=== PATIENT | male | born 1945 | race Caucasian/White ===

== ENCOUNTER → 2017-08-01 | Outpatient (CLI) | payer MEDICARE ==
[2017-08-01 15:06] LABS: Basophils % (A) 0 %; CH 29.2; CHCM 31.9; Eosinophils # (A) 0.4 k/uL (0-0.7); Eosinophils % (A) 5 %; HCT 41.3 % (39.0-53.0); HDW 2.42; HGB 13.4 gm/dL (13.0-17.5); Luc # (Auto) 0.14; Luc % (Auto) 2; Lymphocytes % (A) 25 %; MCH 29.8 pg (25.0-35.0); MCHC 32.4 g/dL (31.0-37.0); MCV 92.1 fL (80.0-100.0); Mean Platelet Volume 6.4; Monocytes # (A) 0.4 k/uL (0-1.0); Monocytes % (A) 6 %; Neutrophils # (A) 4.9 k/uL (1.3-7.7); Neutrophils % (A) 63 %; RBC 4.48 m/uL (4.30-5.90); RDW 13.4 % (11.5-15.5); WBC 7.8 k/uL (3.8-10.6); WBC (Perox) 8.51
[2017-08-01 15:08] LABS: Appearance,Urine Clear (Clear); Bilirubin,Urine Negative (Negative); Glucose,Urine (UA) Negative (Negative); Ketones,Urine Negative (Negative); Leukocyte Esterase,Urine Negative (Negative); Nitrite,Urine Negative (Negative); Protein,Urine Trace (Negative); Specific Gravity,Urine 1.019 (1.001-1.035); UA Billing (MACRO vs. MICRO) CHEM
[2017-08-01 15:58] LABS: ALT 42 U/L (21-72); AST 55 U/L (17-59); Alkaline Phosphatase 118 U/L (38-126); Amylase <30 U/L (30-110); Anion Gap 9 mmol/L; Blood Urea Nitrogen 14 mg/dL (9-20); Calcium 9.5 mg/dL (8.4-10.2); Carbon Dioxide 26 mmol/L (22-30); Chloride 103 mmol/L (98-107); Cholesterol 174 mg/dL (<200); Glucose 112 mg/dL (74-99); HDL Cholesterol 37 mg/dL (40-60); Non-African American GFR(MDRD) >60 (>60 ml/min/1.73 sqM); Potassium 4.5 mmol/L (3.5-5.1); Sodium 138 mmol/L (137-145); Total Bilirubin 0.7 mg/dL (0.2-1.3); Total Protein 7.1 g/dL (6.3-8.2)
[2017-08-01 23:12] LABS: Erythrocyte Sedimentation Rate 42 mm/hr (0-15)
== END | disposition home or self-care (01) ==
LOC: LABWHC1 14:21
PROVIDERS: ATTEND Internal Medicine
DX: E78.5 Hyperlipidemia, unspecified (principal); R10.9 Unspecified abdominal pain
CPT/HCPCS: 36415; 80053; 80061; 81003; 82150; 83690; 84439; 84443; 85025; 85652

== ENCOUNTER → 2017-08-29 | Outpatient (CLI) | payer MEDICARE ==
[2017-08-29 12:06] LABS: CHCM 32.1; HCT 40.5 % (39.0-53.0); MCH 29.1 pg (25.0-35.0); MCHC 32.1 g/dL (31.0-37.0); MCV 90.9 fL (80.0-100.0); Mean Platelet Volume 6.6; RBC 4.46 m/uL (4.30-5.90); RDW 13.3 % (11.5-15.5); WBC 7.9 k/uL (3.8-10.6)
[2017-08-29 12:19] LABS: ALT 29 U/L (21-72); AST 44 U/L (17-59); Alkaline Phosphatase 138 U/L (38-126); Anion Gap 13 mmol/L; Blood Urea Nitrogen 11 mg/dL (9-20); Calcium 9.9 mg/dL (8.4-10.2); Carbon Dioxide 25 mmol/L (22-30); Chloride 103 mmol/L (98-107); Glucose 140 mg/dL (74-99); Non-African American GFR(MDRD) >60 (>60 ml/min/1.73 sqM); Potassium 4.2 mmol/L (3.5-5.1); Sodium 141 mmol/L (137-145); Total Bilirubin 0.6 mg/dL (0.2-1.3); Total Protein 7.3 g/dL (6.3-8.2)
[2017-08-29 12:39] LABS: INR 1.1 (<1.2); Partial Thromboplastin Time 26.2 sec (22.0-30.0); Prothrombin Time 11.2 sec (9.0-12.0)
== END | disposition home or self-care (01) ==
LOC: LABWHC1 10:55
PROVIDERS: ATTEND Surgery
DX: C18.9 Malignant neoplasm of colon, unspecified (principal)
CPT/HCPCS: 36415; 80053; 82378; 85027; 85610; 85730

== ENCOUNTER → 2017-12-11 | Outpatient (CLI) | payer MEDICARE ==
[2017-12-11 11:00] LABS: Blood Urea Nitrogen 14 mg/dL (9-20)
--- NOTE | 2017-12-11 13:05 | CT ---
EXAMINATION TYPE: CT ChestAbdPelvis w con DATE OF EXAM: 12/11/2017 COMPARISON: CT abdomen and pelvis August 28, 2017 HISTORY: Colon CA follow up study currently on chemotherapy. CT DLP: 1580.4 mGycm. Automated Exposure Control for Dose Reduction was Utilized. CONTRAST: CT scan of the thorax, abdomen and pelvis is performed with oral and with IV Contrast, patient inject ed with 100 mL of Omnipaque 300. FINDINGS: LUNGS: There is medial right middle lobe linear scarring near axial image 45 redemonstrated. The righ t lower lobe medial nodule measures 12 x 7 mm axial image 53 versus 21 by 19 mm prior study image 15. The previously visualized 1.3 cm posterior left basilar nodule axial image 18 now shows residual 5 m m groundglass nodule axial image 56. There is mild underlying emphysematous change and mild scattered areas of linear scarring. No new nodules or masses are present. No pleural effusion or pneumothorax is seen. MEDIASTINUM: There are no new greater than 1 cm hilar or mediastinal lymph nodes. Suspicious right pericardial lymph node measures 1.8 x 1.4 cm current study axial image 44 diminished in size from nelson or exam. No cardiomegaly or pericardial effusion is seen. Moderate to severe 3 vessel coronary arter y calcification is noted. OTHER: There is new right internal jugular Mediport catheter with tip in SVC. LIVER/GB: There is redemonstration of ill-defined heterogeneous hypodense liver masses felt improved or diminished in size, some are difficult to accurately measure. For reference medial segment left he patic lobe lesion anteriorly measures 3.0 cm long axis axial image 68 persistent 4.4 cm prior study a xial image 30. For reference lateral left lobe superior segment lesion measures 4.2 cm long axis axia l image 59 versus 6.4 cm prior study image 19. Central malik hepatic mass or lymph node is improved m easuring 3.6 x 3.1 cm axial image 70 versus 5.7 x 5.2 cm prior study. Large rim calcified dependent g allstone is redemonstrated. PANCREAS: No significant abnormality is seen. SPLEEN: No significant abnormality is seen. ADRENALS: No significant abnormality is seen. KIDNEYS: Retroaortic left renal vein is redemonstrated which is normal anatomic variant. BOWEL: There is new metallic stent in the proximal to mid sigmoid colon at site of moderate to severe diverticulosis with persistent mild fat stranding. Irregular posterior mass near axial image 107 is difficult to accurately measure from adjacent fluid. There are additional diverticula in the distal l eft and proximal sigmoid colon. The oral contrast extends to mid transverse colon level. No suspiciou s bowel dilatation is seen. GENITAL ORGANS: No gross abnormality seen. LYMPH NODES: No new greater than 1cm abdominal or pelvic lymph nodes are appreciated. Interval improv ement in gastrohepatic lymph node now measuring 6 x 5 mm axial image 62 versus 1.6 cm long axis prior study. OSSEOUS STRUCTURES: Fairly moderate to severe multilevel spurring in the mid to lower thoracic spine is present. There is facet arthropathy lower lumbar levels. OTHER: Mild to moderate calcified atherosclerotic change of aorta extending into branch vessels is se en. IMPRESSION: 1. New placement of metallic stent at site of neoplasm proximal to mid sigmoid colon. Stent felt zavala nt without proximal dilatation or obstruction. Persistent adjacent diverticulosis and suspected mild acute diverticulitis at this level. 2. Positive treatment response with diminished in size of pulmonary metastatic nodules and hepatic me tastatic lesions as well as lower thoracic and upper abdominal adenopathy as detailed above.
== END ==
LOC: RADPROMAIN 09:53
PROVIDERS: ATTEND Internal Medicine Hematology & Oncology
DX: Z03.89 Encounter for observation for other suspected diseases and conditions ruled out (principal); C18.7 Malignant neoplasm of sigmoid colon; R91.8 Other nonspecific abnormal finding of lung field; K76.9 Liver disease, unspecified; R59.0 Localized enlarged lymph nodes; Z96.89 Presence of other specified functional implants
CPT/HCPCS: 82565; 84520; 71260; 74177; Q9967; J1642

== ENCOUNTER → 2018-03-10 | Outpatient (CLI) | payer MEDICARE ==
[2018-03-10 10:34] LABS: Blood Urea Nitrogen 9 mg/dL (9-20)
--- NOTE | 2018-03-10 12:30 | CT ---
EXAMINATION TYPE: CT ChestAbdPelvis w con DATE OF EXAM: 03/10/2018 COMPARISON: CT chest abdomen and pelvis December 11, 2017. Older CT abdomen pelvis August 28, 2017 HISTORY: Colon CA observed for metastases. Completed chemotherapy in February. CT DLP: 2125.9 mGycm. Automated Exposure Control for Dose Reduction was Utilized. CONTRAST: CT scan of the thorax, abdomen and pelvis is performed with oral and with IV Contrast, patient inject ed with 100 mL of Isovue 300. FINDINGS: LUNGS: Mild underlying emphysematous change is present bilaterally. There is some mild bibasilar line ar scarring and/or atelectasis. Medial right basilar nodule measures 9 x 6 mm prior study image 51 di minished in size from last 2 exams. There is 3 mm groundglass subpleural focus axial image 53 at area of 1.3 cm nodule original study. There is no new suspicious parenchymal nodule or mass. Mild central peribronchial wall thickening is redemonstrated bilaterally. No pleural effusion or pneumothorax is noted. MEDIASTINUM: There are no new greater than 1 cm hilar or mediastinal lymph nodes. Abnormal right nemo cardial lymph node measures 10 x 7 mm prior study image 41 diminished in size from last 2 exams. No cardiomegaly or pericardial effusion is seen. Coronary artery calcification is redemonstrated which is noted marker for coronary artery disease. OTHER: There is stable right internal jugular Mediport catheter. LIVER/GB: Large dependent rim calcified gallstone in the gallbladder is redemonstrated. There is lobu lated contour to the liver. Vague heterogeneous hypodense lesions continue to decrease or diminished in size and are difficult to accurately measure on current study due to increased ill-definition. For reference lateral right hepatic lobe lesion is poor defined smaller in size measuring 1.7 cm long ax is axial image 71 versus 2.2 cm prior study axial image 72. Medial segment left hepatic lobe lesion anteriorly measures 2.2 cm long axis image 64 versus 3.1 cm prior study image 68. No new suspicious l esions are seen. PANCREAS: No significant abnormality is seen. SPLEEN: No significant abnormality is seen. ADRENALS: No significant abnormality is seen. KIDNEYS: There is retroaortic left renal vein which is normal variant incidentally noted. BOWEL: There is persistent metallic stent graft in the sigmoid colon. There is prominent sigmoid colo monty diverticulosis. Some foci of soft tissue and air outside the stent could reflect contained infect ion or pneumoperitoneum on background of residual neoplasm, this is not significantly unchanged from prior study. On current study oral contrast reaches the mid transverse colon. There is no new suspici ous small or large bowel dilatation. GENITAL ORGANS: No gross abnormality seen. LYMPH NODES: No new greater than 1cm abdominal or pelvic lymph nodes are appreciated. Slightly promin ent left para-aortic lymph node axial image 65 is unchanged from last 2 studies. Abnormal heterogeneo us perihepatic lymph node anterior to IVC measures 2.4 x 2.2 cm current study image 67 diminished in size from last 2 exams. OSSEOUS STRUCTURES: There is moderate multilevel spurring in the thoracic spine. OTHER: There is mild to moderate calcified plaque of the abdominal aorta extending into pelvic branch vessels IMPRESSION: Continued interval improvement in metastatic disease as detailed above. No new suspiciou s masses are identified.
== END | disposition home or self-care (01) ==
LOC: RADCTMAIN 09:29
PROVIDERS: ATTEND Internal Medicine Hematology & Oncology
DX: C18.7 Malignant neoplasm of sigmoid colon (principal)
CPT/HCPCS: 82565; 84520; 71260; 74177; J1642; Q9967

== ENCOUNTER → 2018-05-19 | Outpatient (CLI) | payer MEDICARE ==
--- NOTE | 2018-05-19 15:50 | CT ---
EXAMINATION TYPE: CT ChestAbdPelvis w con DATE OF EXAM: 05/19/2018 COMPARISON: 03/10/2018 and 12/11/2017 HISTORY: 73-year-old male Follow up colon cancer. TECHNIQUE: Contiguous axial scanning of the chest, abdomen, and pelvis performed with IV Contrast, pa tient injected with 100 mL of Isovue M300. Delayed images through the kidneys were obtained. Coronal/ sagittal reconstructions performed. CT DLP: 1710.9 mGycm Automated exposure control for dose reduction was used. FINDINGS: Chest: Heart normal size without pericardial effusion. Coronary vessel calcifications are present in remarka ble for coronary artery disease. 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 Conventional arch vessel branching anatomy. Right anterior chest wall injection port with catheter tip at the mid SVC level. No thoracic lymphadenopathy. Mild centrilobular emphysema. -7 mm posteromedial right lower lobe pulmonary nodule slightly smaller as compared to 9 mm, previousl y. -4 mm left basilar pulmonary nodule axial image 49 and a couple tiny adjacent 3 mm pulmonary nodules, axial images 45 and 46 are unchanged from 03/10/2018. -Minimal 4 mm subpleural pulmonary nodularity peripheral right upper lobe axial image 16 is unchanged from recent prior. No consolidation or pleural effusion. Abdomen: Multiple lesions redemonstrated within the liver are partially calcified. These appear smaller as com pared to 12/11/2017 and relatively stable as compared to 03/10/2018 measuring up to 2.5 cm. An abnormal portacaval lymph node measures 2.0 cm versus 2.3 cm on 03/10/2018. Significantly decreased in size as compared to 12/11/2017. No other mesenteric or retroperitoneal lymphadenopathy. Retrocaval left renal vein incidentally noted. 2.2 cm gallstone. No abnormal gallbladder distention. Adrenal glands, kidneys, spleen, and pancreas appear within normal limits. Irregular soft tissue thickening along the mid sigmoid colon projecting superiorly measures 4.1 x 2.9 cm versus 4.2 x 2.5 cm on 03/10/2018; along the superior aspect of this thickening, refer to sagittal image 76, there is focal nodularity which may be slightly larger at 1.4 cm versus 1.1 cm, previously . A metallic stent present along this segment of mid sigmoid colon. There is sigmoid diverticulosis wit h persistent mild surrounding inflammatory fat stranding here, though it appears slightly improved as compared to 03/10/2018. The sigmoid colon appears patent across the stent. No dilated small bowel, free fluid, or free air. Pelvis: Presacral edema and fat stranding is unchanged and may relate to posttherapy change. Mild circumferen tial bladder wall thickening may similarly relate to posttherapy change. No abnormal fluid collection in the pelvis or pelvic lymphadenopathy. Bones: Mild degenerative changes at the hips. Degenerative changes SI joints. Degenerative changes mid to lo wer lumbar spine and endplate spondylosis throughout the thoracic spine. No osseous destructive proce ss. IMPRESSION: 1. METALLIC STENT ACROSS THE MID SIGMOID COLON. THERE IS DIVERTICULOSIS HERE AND PERSISTENT IRREGULAR EXOPHYTIC SOFT TISSUE PROJECTING SUPERIORLY. THIS MEASURES 4.1 X 2.9 CM VERSUS 4.2 X 2.5 CM PREVIOUS LY, NOT SIGNIFICANTLY CHANGED. HOWEVER, SOME SUBTLE NODULARITY ALONG THE SUPERIOR ASPECT OF THIS SOFT TISSUE, (SAGITTAL IMAGE 76) IS SLIGHTLY LARGER AT 1.4 CM VERSUS 1.1 CM. CLOSE SURVEILLANCE RECOMMEND ED. 2. THE METASTATIC PORTACAVAL LYMPH NODE IS SLIGHTLY SMALLER 2.0 CM VERSUS 2.3 CM, PREVIOUSLY. 3. PULMONARY NODULES MEASURING UP TO 7 MM ARE EITHER SMALLER (VERSUS 9 MM, PREVIOUSLY) OR STABLE IN S IZE (A FEW 4 AND 3 MM PULMONARY NODULES). 4. STABLE PARTIALLY CALCIFIED HEPATIC METASTASES. THE CALCIFICATIONS COULD REFLECT MUCINOUS METASTASE S OR POSTTREATMENT CHANGE. 5. MILD COPD AND CHOLELITHIASIS.
== END | disposition home or self-care (01) ==
LOC: RADCTMAIN 12:15
PROVIDERS: ATTEND Internal Medicine Hematology & Oncology
DX: C18.7 Malignant neoplasm of sigmoid colon (principal); Z03.89 Encounter for observation for other suspected diseases and conditions ruled out
CPT/HCPCS: 82565; 84520; 71260; 74177; 36415; Q9967

== ENCOUNTER → 2018-09-08 | Outpatient (CLI) | payer MEDICARE ==
[2018-09-08 12:19] LABS: Blood Urea Nitrogen 8 mg/dL (9-20)
--- NOTE | 2018-09-08 14:06 | CT ---
EXAMINATION TYPE: CT ChestAbdPelvis w con DATE OF EXAM: 09/08/2018 COMPARISON: 05/19/2018 and 03/10/2018 HISTORY: 73-year-old male Follow up colon cancer TECHNIQUE: Contiguous axial scanning of the chest, abdomen, and pelvis performed with IV Contrast, pa tient injected with 100 mL of Isovue 300. Delayed images through the kidneys were obtained. Coronal/s agittal reconstructions performed. CT DLP: 2261.2 mGycm Automated exposure control for dose reduction was used. FINDINGS: Chest: Heart normal size with trace pericardial fluid. Aortic valvular calcifications. Coronary vascular shira cifications are present. Mild aneurysm ascending aorta 4.1 cm. Conventional arch vessel branching anatomy with mild atelectati c cartilage calcifications. Right anterior chest wall injection port with catheter tip at the upper SVC level. A right epicardial lymph node measures 1.3 cm, stable from 05/19/2018 but slightly larger from 8. Mild centrilobular emphysema 7 mm subpleural pulmonary nodule peripheral right upper lobe is unchanged from recent prior. Addition al scattered 4 mm in small pulmonary nodules are unchanged. No new pulmonary nodules are seen. No con solidation or pleural effusion. ABDOMEN: Stable partially calcified lesion right hepatic dome. Stable residual hypodensity and capsular retrac tion suggesting volume loss peripherally inferior right liver lobe axial image 68. Similar residual a rolanda anterior mid liver, axial image 65. No new hepatic lesions are identified. Portal venous system is patent. Metastatic portacaval lymph node currently measures 1.5 cm versus 2.0 cm, previously. Gallbladder is hydropic at 4.8 cm wide with a 2.1 cm gallstone. Distention is probably due to fasting state. Retroaortic left renal vein. Adrenal glands, kidneys, spleen, and atrophic pancreas show no gross abn ormality. No dilated small bowel, free fluid, or free air. Exophytic soft tissue thickening extending posterior ly and superiorly from the abnormal segment of mid sigmoid colon measures 2.6 x 2.9 cm versus 4.1 x 2 .9 cm on prior exam. The soft tissue thickening spans 5.5 cm craniocaudal, sagittal image 71 versus 6 .0 cm, previously. There is diverticular change and residual mild wall thickening and surrounding inf lammation at this level and along the proximal sigmoid. Normal appendix. Pelvis: Stable presacral thickening. No abnormal fluid collection in the pelvis or pelvic lymphadenopathy see n. Mildly patulous inguinal canals. Bones: Mild degenerative changes of the hips. Degenerative changes right SI joint. Endplate spondylosis mid to lower thoracic spine. No osseous destructive process. IMPRESSION: 1. METALLIC STENT ACROSS THE MID SIGMOID COLON AT THE SITE OF PATIENT'S COLON CANCER. THERE IS REDEMO NSTRATED IRREGULAR EXOPHYTIC SOFT TISSUE HERE THOUGH MEASURING 5.5 CM VERSUS 6.0 CM, PREVIOUSLY. FIND INGS SUGGESTS TREATED DISEASE. 2. SIGMOID DIVERTICULOSIS WITH RESIDUAL WALL THICKENING AND SURROUNDING FAT STRANDING ABOUT THE STENT SUGGESTS CONTINUED LOW-GRADE INFLAMMATION/MILD ACUTE DIVERTICULITIS. 3. THE METASTATIC PORTACAVAL LYMPH NODE CONTINUES TO DECREASE IN SIZE NOW MEASURING 1.5 CM VERSUS 2.0 CM, PREVIOUSLY. THE 7 mm AND SMALLER PULMONARY NODULES AND PARTIALLY CALCIFIED HEPATIC LESIONS ARE A LSO STABLE. RIGHT PERICARDIAC LYMPH NODE MEASURING 1.3 CM IS STABLE.
== END ==
LOC: RADPROMAIN 10:41
PROVIDERS: ATTEND Internal Medicine Hematology & Oncology
DX: C18.7 Malignant neoplasm of sigmoid colon (principal); K57.30 Diverticulosis of large intestine without perforation or abscess without bleeding; R91.8 Other nonspecific abnormal finding of lung field; K76.9 Liver disease, unspecified
CPT/HCPCS: 82565; 84520; 71260; 74177; J1642; Q9967

== ENCOUNTER 2018-10-30 11:23 | Inpatient (IN) | payer MEDICARE ==
[2018-10-30] MEDS ORDERED: SODIUM CHLORIDE 0.9% 1,000 ML IV STA (12:13)
[2018-10-30] MEDS ORDERED: MORPHINE SULFATE 2 MG/ML SYRINGE IVP ONE (12:25)
[2018-10-30] MEDS ORDERED: ONDANSETRON 4 MG/2 ML VIAL IVP STA (12:25)
[2018-10-30 12:54] LABS: Anisocytosis Slight; Basophils % (A) 0 %; Eosinophils # (A) 0.1 k/uL (0-0.7); Eosinophils % (A) 2 %; HCT 42.8 % (39.0-53.0); Lymphocytes # (A) 2.2 k/uL (1.0-4.8); Lymphocytes % (A) 26 %; MCH 30.4 pg (25.0-35.0); MCHC 32.7 g/dL (31.0-37.0); MCV 92.9 fL (80.0-100.0); Mean Platelet Volume 6.4; Monocytes # (A) 0.5 k/uL (0-1.0); Monocytes % (A) 6 %; Neutrophils # (A) 5.5 k/uL (1.3-7.7); Neutrophils % (A) 65 %; Platelet Count 356 k/uL (150-450); RBC 4.61 m/uL (4.30-5.90); RDW 16.3 % (11.5-15.5); WBC 8.4 k/uL (3.8-10.6)
[2018-10-30 13:04] LABS: ALT 26 U/L (21-72); AST 34 U/L (17-59); Alkaline Phosphatase 111 U/L (38-126); Amylase 43 U/L (30-110); Anion Gap 12 mmol/L; Blood Urea Nitrogen 15 mg/dL (9-20); Calcium 9.5 mg/dL (8.4-10.2); Carbon Dioxide 25 mmol/L (22-30); Chloride 100 mmol/L (98-107); Glucose 137 mg/dL (74-99); Lipase 41 U/L (23-300); Potassium 3.9 mmol/L (3.5-5.1); Sodium 137 mmol/L (137-145); Total Bilirubin 0.8 mg/dL (0.2-1.3); Total Protein 7.6 g/dL (6.3-8.2)
[2018-10-30 13:06] LABS: Partial Thromboplastin Time 26.3 sec (22.0-30.0); Prothrombin Time 10.9 sec (9.0-12.0)
--- NOTE | 2018-10-30 13:59 | ED ---
Abdominal Pain HPI - General Chief Complaint: Abdominal Pain Stated Complaint: colon cancer problems Time Seen by Provider: 10/30/18 12:04 Source: patient, RN notes reviewed Mode of arrival: ambulatory Limitations: no limitations - History of Present Illness Initial Comments: 73-year-old male presents emergency Department chief complaint abdominal pain. Patient states he has had known colon cancer. Patient states that he has had 2 rounds of chemotherapy last round was 4 weeks ago. Patient also has had a stent placed in his sigmoid colon by her surgeon at [facility]. Patient states that he felt more constipated recently has been taking laxatives. Patient reports no fever or chills. Patient states that slight nausea no vomiting no chest pain or shortness of breath. He said no dysuria no hematuria. He also states that they noticed areas on his liver and lung. Patient does see Dr. andersen locally. - Related Data Home Medications Medication Instructions Recorded Confirmed Allopurinol [Zyloprim] 300 mg PO DAILY 08/16/17 10/30/18 Simvastatin [Zocor] 20 mg PO HS 08/16/17 10/30/18 Tiotropium 18 Mcg/Puff [Spiriva] 1 puff INHALATION RT-HS 08/16/17 10/30/18 Zolpidem [Ambien] 5 mg PO HS 08/16/17 10/30/18 amLODIPine [Norvasc] 5 mg PO QAM 08/16/17 10/30/18 metFORMIN HCL [Glucophage] 500 mg PO BID 08/16/17 10/30/18 Allergies Allergy/AdvReac Type Severity Reaction Status Date / Time moxifloxacin [From Avelox] Allergy Swelling Verified 10/30/18 14:27 Review of Systems ROS Statement: Those systems with pertinent positive or pertinent negative responses have been documented in the HPI. ROS Other: All systems not noted in ROS Statement are negative. Past Medical History Past Medical History: Asthma, Cancer, COPD, Diabetes Mellitus, GERD/Reflux, Hyperlipidemia, Hypertension Additional Past Medical History / Comment(s): ABDOMINAL PAIN AND CONSTIPATION, colon cancer History of Any Multi-Drug Resistant Organisms: None Reported Past Surgical History: No Surgical Hx Reported Additional Past Surgical History / Comment(s): colon stent Past Anesthesia/Blood Transfusion Reactions: No Reported Reaction Additional Past Anesthesia/Blood Transfusion Reaction / Comment(s): NO PRIOR SX HX Past Psychological History: No Psychological Hx Reported Smoking Status: Former smoker Past Alcohol Use History: None Reported Past Drug Use History: None Reported - Past Family History Father Family Medical History: Cancer General Exam Limitations: no limitations General appearance: alert, in no apparent distress Head exam: Present: atraumatic, normocephalic, normal inspection Eye exam: Present: normal appearance, PERRL, EOMI. Absent: scleral icterus, conjunctival injection, periorbital swelling Respiratory exam: Present: normal lung sounds bilaterally. Absent: respiratory distress, wheezes, rales, rhonchi, stridor Cardiovascular Exam: Present: regular rate, normal rhythm, normal heart sounds. Absent: systolic murmur, diastolic murmur, rubs, gallop, clicks GI/Abdominal exam: Present: soft, distended, tenderness, normal bowel sounds. Absent: guarding, rebound, rigid Back exam: Absent: CVA tenderness (R), CVA tenderness (L) Skin exam: Present: warm, dry, intact, normal color. Absent: rash Course Vital Signs 10/30/18 10/30/18 11:54 14:42 Temperature 98.2 F Pulse Rate 101 H 74 Respiratory 18 18 Rate Blood Pressure 126/79 130/75 O2 Sat by Pulse 97 96 Oximetry Medical Decision Making - Medical Decision Making Patient will be admitted to Dr. Melendez service for colonic obstruction. Patient will go to [facility] Patient will have medical management with Dr. Anderson. . - Lab Data Result diagrams: 10/30/18 12:33 10/30/18 12:33 Lab Results 10/30/18 10/30/18 10/30/18 Range/Units 12:33 12:33 12:33 WBC 8.4 (3.8-10.6) k/uL RBC 4.61 (4.30-5.90) m/uL Hgb 14.0 (13.0-17.5) gm/dL Hct 42.8 (39.0-53.0) % MCV 92.9 (80.0-100.0) fL MCH 30.4 (25.0-35.0) pg MCHC 32.7 (31.0-37.0) g/dL RDW 16.3 H (11.5-15.5) % Plt Count 356 (150-450) k/uL Neutrophils % 65 % Lymphocytes % 26 % Monocytes % 6 % Eosinophils % 2 % Basophils % 0 % Neutrophils # 5.5 (1.3-7.7) k/uL Lymphocytes # 2.2 (1.0-4.8) k/uL Monocytes # 0.5 (0-1.0) k/uL Eosinophils # 0.1 (0-0.7) k/uL Basophils # 0.0 (0-0.2) k/uL Anisocytosis Slight PT (9.0-12.0) sec INR (<1.2) APTT (22.0-30.0) sec Sodium 137 (137-145) mmol/L Potassium 3.9 (3.5-5.1) mmol/L Chloride 100 (98-107) mmol/L Carbon Dioxide 25 (22-30) mmol/L Anion Gap 12 mmol/L BUN 15 (9-20) mg/dL Creatinine 0.94 (0.66-1.25) mg/dL Est GFR (CKD-EPI)AfAm >90 (>60 ml/min/1.73 sqM) Est GFR (CKD-EPI)NonAf 80 (>60 ml/min/1.73 sqM) Glucose 137 H (74-99) mg/dL Plasma Lactic Acid Won 2.0 (0.7-2.0) mmol/L Calcium 9.5 (8.4-10.2) mg/dL Total Bilirubin 0.8 (0.2-1.3) mg/dL AST 34 (17-59) U/L ALT 26 (21-72) U/L Alkaline Phosphatase 111 (38-126) U/L Total Protein 7.6 (6.3-8.2) g/dL Albumin 4.0 (3.5-5.0) g/dL Amylase 43 (30-110) U/L Lipase 41 (23-300) U/L Urine Color Urine Appearance (Clear) Urine pH (5.0-8.0) Ur Specific [place] (1.001-1.035) Urine Protein (Negative) Urine Glucose (UA) (Negative) Urine Ketones (Negative) Urine Blood (Negative) Urine Nitrite (Negative) Urine Bilirubin (Negative) Urine Urobilinogen (<2.0) mg/dL Ur Leukocyte Esterase (Negative) 10/30/18 10/30/18 Range/Units 12:33 14:35 WBC (3.8-10.6) k/uL RBC (4.30-5.90) m/uL Hgb (13.0-17.5) gm/dL Hct (39.0-53.0) % MCV (80.0-100.0) fL MCH (25.0-35.0) pg MCHC (31.0-37.0) g/dL RDW (11.5-15.5) % Plt Count (150-450) k/uL Neutrophils % % Lymphocytes % % Monocytes % % Eosinophils % % Basophils % % Neutrophils # (1.3-7.7) k/uL Lymphocytes # (1.0-4.8) k/uL Monocytes # (0-1.0) k/uL Eosinophils # (0-0.7) k/uL Basophils # (0-0.2) k/uL Anisocytosis PT 10.9 (9.0-12.0) sec INR 1.0 (<1.2) APTT 26.3 (22.0-30.0) sec Sodium (137-145) mmol/L Potassium (3.5-5.1) mmol/L Chloride (98-107) mmol/L Carbon Dioxide (22-30) mmol/L Anion Gap mmol/L BUN (9-20) mg/dL Creatinine (0.66-1.25) mg/dL Est GFR (CKD-EPI)AfAm (>60 ml/min/1.73 sqM) Est GFR (CKD-EPI)NonAf (>60 ml/min/1.73 sqM) Glucose (74-99) mg/dL Plasma Lactic Acid Won (0.7-2.0) mmol/L Calcium (8.4-10.2) mg/dL Total Bilirubin (0.2-1.3) mg/dL AST (17-59) U/L ALT (21-72) U/L Alkaline Phosphatase (38-126) U/L Total Protein (6.3-8.2) g/dL Albumin (3.5-5.0) g/dL Amylase (30-110) U/L Lipase (23-300) U/L Urine Color Yellow Urine Appearance Clear (Clear) Urine pH 5.5 (5.0-8.0) Ur Specific [place] 1.016 (1.001-1.035) Urine Protein Negative (Negative) Urine Glucose (UA) Negative (Negative) Urine Ketones Negative (Negative) Urine Blood Negative (Negative) Urine Nitrite Negative (Negative) Urine Bilirubin Negative (Negative) Urine Urobilinogen <2.0 (<2.0) mg/dL Ur Leukocyte Esterase Negative (Negative) Disposition Clinical Impression: Colonic obstruction, Colon cancer Disposition: ADMITTED IP TO THIS HOSP Condition: Fair Referrals: Ara Coley MD [Primary Care Provider] - 1-2 days
--- NOTE | 2018-10-30 14:26 | CT ---
EXAMINATION TYPE: CT abdomen pelvis w con DATE OF EXAM: 10/30/2018 COMPARISON: CT September 08, 2018 HISTORY: Colon Cancer with abdominal pain not further specified. CT DLP: 1476.3 mGycm, Automated Exposure Control for Dose Reduction was Utilized. CONTRAST: CT scan of the abdomen and pelvis is performed without oral but with IV Contrast, patient injected wi th 100 ml mL of Isovue 300. FINDINGS: LUNG BASES: No significant abnormality is appreciated. LIVER/GB: Heterogeneous liver with vague heterogeneous partially calcified metastatic lesions is rede monstrated, largest lesion posterior right hepatic dome axial image 18 is not significantly changed f rom most recent prior. Treated metastatic disease is significantly improved from initial studies. [place] er has lobulated contour similar to most recent prior. Some mild ascites along superior right lateral aspect is seen on current study axial image 19 new from most recent prior. Gallbladder has distended margins with dependent rim calcified gallstone redemonstrated. No significant change from prior. No surrounding inflammatory changes noted. PANCREAS: No significant abnormality is seen. SPLEEN: Spleen remains mildly enlarged at 13.8 cm long axis coronal image 69. No significant change f rom prior. ADRENALS: No significant abnormality is seen. KIDNEYS: No significant abnormality is seen. BOWEL: No significant small bowel dilatation is seen. There is dilated fecal and fluid filled colon u p to level of sigmoid colon where there is metallic tube in place. Some peripheral curvilinear air in portions of bowel particularly near mesenteric surface distal left colon is identified, this could r eflect trapped air but pneumatosis cannot be excluded. Proximal portion of metallic sigmoid tube show s lack of air suggesting at least significant narrowing. There is ill-defined fluid and fat stranding near proximal portion of metallic stent. There is persistent wall irregularities with abnormal outpo uching containing soft tissue, fluid, near their proximal portion of stent. There is adjacent partial ly calcified mesenteric lesion axial image 71 likely reflecting treated adenopathy redemonstrated. PROSTATE/SEMINAL VESICLES: No gross abnormality seen. LYMPH NODES: No greater than 1cm abdominal or pelvic lymph nodes are appreciated. OSSEOUS STRUCTURES: Moderate to severe multilevel spurring in the thoracic spine is present. OTHER: Small amount of fluid right infracolic gutter is seen. Mild fat stranding presacral space axia l image 82 is redemonstrated, nonspecific. Moderate calcified plaque of the aorta extends into branch vessels. IMPRESSION: 1. At least new significant partial colonic obstruction at metallic stent graft at site of known neop lasm. There is significant colonic dilatation without small bowel dilatation. Early pneumatosis is no t excluded. Correlate clinically and with lactic acid values.
[2018-10-30 15:05] LABS: Appearance,Urine Clear (Clear); Bilirubin,Urine Negative (Negative); Blood,Urine Negative (Negative); Color,Urine Yellow; Glucose,Urine (UA) Negative (Negative); Ketones,Urine Negative (Negative); Leukocyte Esterase,Urine Negative (Negative); Nitrite,Urine Negative (Negative); PH, Urine 5.5 (5.0-8.0); Protein,Urine Negative (Negative); Specific Gravity,Urine 1.016 (1.001-1.035); Urobilinogen,Urine <2.0 mg/dL (<2.0)
[2018-10-30] MEDS ORDERED: MORPHINE SULFATE 4 MG/ML SYRINGE IVP STA (15:07)
[2018-10-30] MEDS ORDERED: ONDANSETRON 4 MG/2 ML VIAL IVP PRN ×2 (16:16→22:57)
[2018-10-30] MEDS ORDERED: NALOXONE 0.4 MG/ML 1 ML VIAL IV PRN ×2 (16:16→22:57)
--- NOTE | 2018-10-30 16:21 | P.GSHP ---
History of Present Illness H&P Date: 10/30/18 Chief Complaint: Colonic obstruction 73-year-old male known to our service. Patient diagnosed last year with a nearly obstructing colon cancer with liver metastasis. The patient had a endoluminal stent placement at [facility] and was started on chemotherapy. The patient has actually responded fairly well as it pertains to his distant metastases. He has stent has been patent up until approximately 3- 5 days ago when he began experiencing gradual distention, lack of flatus or bowel movement. Patient's appetite diminished. Some vomiting. Pain was getting much more severe and for that reason he came to the hospital today. Labs are fairly unimpressive. CAT scan shows evidence of colonic obstruction with possible pneumatosis. Patient's pain has improved with IV narcotics. - Review of Systems Comment: The patient denies any acute changes in vision or hearing, no dysphagia or odynophagia, no chest pain or shortness of breath, no dysuria or hematuria, no headache, no runny nose, no rectal bleeding or melena, no unexplained weight loss Past Medical History Past Medical History: Asthma, Cancer, COPD, Diabetes Mellitus, GERD/Reflux, Hyperlipidemia, Hypertension Additional Past Medical History / Comment(s): ABDOMINAL PAIN AND CONSTIPATION, colon cancer History of Any Multi-Drug Resistant Organisms: None Reported Past Surgical History: No Surgical Hx Reported Additional Past Surgical History / Comment(s): colon stent Past Anesthesia/Blood Transfusion Reactions: No Reported Reaction Additional Past Anesthesia/Blood Transfusion Reaction / Comment(s): NO PRIOR SX HX Past Psychological History: No Psychological Hx Reported Smoking Status: Former smoker Past Alcohol Use History: None Reported Past Drug Use History: None Reported - Past Family History Father Family Medical History: Cancer Medications and Allergies Home Medications Medication Instructions Recorded Confirmed Type Allopurinol [Zyloprim] 300 mg PO DAILY 08/16/17 10/30/18 History Simvastatin [Zocor] 20 mg PO HS 08/16/17 10/30/18 History Tiotropium 18 Mcg/Puff [Spiriva] 1 puff INHALATION RT-HS 08/16/17 10/30/18 History Zolpidem [Ambien] 5 mg PO HS 08/16/17 10/30/18 History amLODIPine [Norvasc] 5 mg PO QAM 08/16/17 10/30/18 History metFORMIN HCL [Glucophage] 500 mg PO BID 08/16/17 10/30/18 History Allergies Allergy/AdvReac Type Severity Reaction Status Date / Time moxifloxacin [From Avelox] Allergy Swelling Verified 10/30/18 14:27 Surgical - Exam Vital Signs Temp Pulse Resp BP Pulse Ox 98.2 F 101 H 18 126/79 97 10/30/18 11:54 10/30/18 11:54 10/30/18 11:54 10/30/18 11:54 10/30/18 11:54 Physical exam: General: Well-developed, well-nourished HEENT: Normocephalic, sclerae nonicteric Abdomen: Distended, mild diffuse tenderness Extremities: No edema Neuro: Alert and oriented Results - Labs 10/30/18 12:33 10/30/18 12:33 Abnormal Lab Results - Last 24 Hours (Table) 10/30/18 10/30/18 Range/Units 12:33 12:33 RDW 16.3 H (11.5-15.5) % Glucose 137 H (74-99) mg/dL Diabetes panel 10/30/18 Range/Units 12:33 Sodium 137 (137-145) mmol/L Potassium 3.9 (3.5-5.1) mmol/L Chloride 100 (98-107) mmol/L Carbon Dioxide 25 (22-30) mmol/L BUN 15 (9-20) mg/dL Creatinine 0.94 (0.66-1.25) mg/dL Glucose 137 H (74-99) mg/dL Calcium 9.5 (8.4-10.2) mg/dL AST 34 (17-59) U/L ALT 26 (21-72) U/L Alkaline Phosphatase 111 (38-126) U/L Total Protein 7.6 (6.3-8.2) g/dL Albumin 4.0 (3.5-5.0) g/dL Calcium panel 10/30/18 Range/Units 12:33 Calcium 9.5 (8.4-10.2) mg/dL Albumin 4.0 (3.5-5.0) g/dL Pituitary panel 10/30/18 Range/Units 12:33 Sodium 137 (137-145) mmol/L Potassium 3.9 (3.5-5.1) mmol/L Chloride 100 (98-107) mmol/L Carbon Dioxide 25 (22-30) mmol/L BUN 15 (9-20) mg/dL Creatinine 0.94 (0.66-1.25) mg/dL Glucose 137 H (74-99) mg/dL Calcium 9.5 (8.4-10.2) mg/dL Adrenal panel 10/30/18 Range/Units 12:33 Sodium 137 (137-145) mmol/L Potassium 3.9 (3.5-5.1) mmol/L Chloride 100 (98-107) mmol/L Carbon Dioxide 25 (22-30) mmol/L BUN 15 (9-20) mg/dL Creatinine 0.94 (0.66-1.25) mg/dL Glucose 137 H (74-99) mg/dL Calcium 9.5 (8.4-10.2) mg/dL Total Bilirubin 0.8 (0.2-1.3) mg/dL AST 34 (17-59) U/L ALT 26 (21-72) U/L Alkaline Phosphatase 111 (38-126) U/L Total Protein 7.6 (6.3-8.2) g/dL Albumin 4.0 (3.5-5.0) g/dL Assessment and Plan (1) Colonic obstruction Narrative/Plan: Clinical scenario discussed in detail with the patient and his at the bedside. Options of surgical intervention versus observation which likely would lead to hospice measures reviewed. They are interested in surgical correction of this obstruction which would include ostomy. We will proceed with an exploratory laparotomy with diverting ostomy and possible bowel resection if necessary. Risks of bleeding, infection, hernia, ostomy-related complications, abscess, ureteral injury, progression of malignancy, potential need for additional procedures, anesthesia related complications. They understand and wish to proceed. Current Visit: Yes Status: Acute Code(s): K56.609 - UNSP INTESTNL OBST, UNSP TO PARTIAL VERSUS COMPLETE OBST SNOMED Code(s): 68471527
[2018-10-30] MEDS ORDERED: PIPERACILLIN-TAZOBACTAM 3.375 GM in SODIUM CHLORIDE 0.9% 100 ML IVPB STA (16:22)
[2018-10-30] MEDS ORDERED: SODIUM CHLORIDE 0.9% 1,000 ML IV SCH (16:30)
[2018-10-30 20:01] LABS: Glucose,Whole Blood 106 mg/dL (75-99)
[2018-10-30] MEDS ORDERED: HEPARIN SODIUM,PORCINE 5,000 UNIT/ML 1 ML VIAL SQ ONE (20:35)
[2018-10-30] MEDS ORDERED: ROCURONIUM BROMIDE 10 MG/ML 10 ML VIAL IV ONE (20:43)
[2018-10-30] MEDS ORDERED: GLYCOPYRROLATE 0.2 MG/ML 2 ML VIAL ONE (20:43)
[2018-10-30] MEDS ORDERED: LIDOCAINE 1% INJ 10MG/ML (20 ML MDV) ONE (20:43)
[2018-10-30] MEDS ORDERED: ePHEDrine SULFATE/0.9% NACL/PF 50 MG/5 ML SYRINGE IV ONE (20:43)
[2018-10-30] MEDS ORDERED: SUCCINYLCHOLINE CHLORIDE 100 MG/5 ML SYR IV ONE (20:43)
[2018-10-30] MEDS ORDERED: NEOSTIGMINE 1 MG/ML 10 ML VIAL ONE (20:43)
[2018-10-30] MEDS ORDERED: PHENYLEPHRINE-0.9% NACL SYG 1 MG/10 ML SYRINGE ONE (20:43)
[2018-10-30] MEDS ORDERED: PROPOFOL 10 MG/ML 20 ML VIAL IV ONE (20:43)
[2018-10-30] MEDS ORDERED: fentaNYL (PF) 50 MCG/ML 2 ML AMP ONE (20:43)
[2018-10-30] MEDS ORDERED: MIDAZOLAM 2 MG/2 ML VIAL ONE (20:43)
[2018-10-30] MEDS ORDERED: HYDROmorphone (PF) 1 MG/ML ONE (20:43)
[2018-10-30] MEDS ORDERED: SODIUM CHLORIDE 0.9% 1,000 ML IV ONE (20:49)
[2018-10-30] MEDS ORDERED: ceFAZolin 1,000 MG VIAL IVPB ONE (21:12)
[2018-10-30] MEDS ORDERED: LACTATED RINGERS 1,000 ML IV ONE ×2 (21:39→22:35)
[2018-10-30] MEDS ORDERED: ACETAMINOPHEN IV (For NPO) 1,000 MG in EMPTY BAG 1 BAG IVPB ONE (22:57)
--- NOTE | 2018-10-30 23:10 | P.OP ---
Date of Procedure: 10/30/18 Procedure(s) Performed: PREOPERATIVE DIAGNOSIS: Colonic obstruction POSTOPERATIVE DIAGNOSIS: Same PROCEDURE: Sigmoid colectomy with end colostom SURGEON: Carlito EBL: 100 mL ANESTHESIA: General COMPLICATIONS: None OPERATIVE PROCEDURE: Patient place in the operative table in the supine position. The patient was placed under general anesthesia. The abdomen was prepped and draped in usual sterile fashion. A vertical incision was made extending from the suprapubic region above the umbilicus. The fascia was divided as well. Upon entrance into the peritoneal cavity a large volume of serous fluid was identified. The Bookwalter retractor was utilized. The patient's proximal colon was quite distended. The transverse colon descending colon and cecum with ascending colon was inspected and free of gangrenous changes. The tumor was adherent to the left pelvic sidewall. I decided to proceed with resection of the tumor with plans for end colostomy. The bowel was divided proximal to the obstructing site using 2 separate firings of the linear 75 stapler with green load. The mesentery of the tumor was divided using a combination of the LigaSure and electrocautery. The mesentery was quite scarred down and involved with the malignancy. We were cauterizing directly through malignant tissue in order to resect this tumor safely without injury to the remainder of the retroperitoneal structures. 2 small areas of bleeding along this mesenteric dissection were oversewn using [id number] 2- 0 Vicryl sutures. The distal aspect of the resection was divided at the distal sigmoid colon using a blue load linear 75 stapler. The specimen was passed off. There was a defect in the mesenteric side of the lumen of the bowel at the obstruction site. The indwelling stent was partially visualized. Copious irrigation of the pelvis took place. No bleeding was seen at this point. The descending colon and proximal sigmoid colon were then mobilized by incising the white line of Toldt further and dividing a portion of the mesentery to this portion of bowel maintaining vascular supply. There was no other peritoneal disease present that we could visualize. The liver was palpated and had induration suspicious for malignancy present on both right and left lobes. A circular incision was then made in the left midabdomen. The saphenous fat and fascia were then divided using electrocautery. The defect in the fascia was bluntly dissected. I brought the staple line through the defect and later this was matured using interrupted 3-0 Vicryl sutures. The midline fascia was reapproximated using 2 separate running double-stranded #1 PDS sutures. The subcutaneous tissues were closed using 2-0 Vicryl sutures and the skin closed using tootie. Small gaps were left in the incision for Telfa placement. An ostomy appliance was then applied. Sterile dressings were then applied to the midline incision. DISPOSITION: Stable to recovery room
[2018-10-30 23:50] LABS: Glucose,Whole Blood 132 mg/dL (75-99)
[2018-10-31] MEDS: MORPHINE SULFATE 4 MG/ML SYRINGE IV PRN ×3 (00:35→21:43)
[2018-10-31] MEDS: PIPERACILLIN-TAZOBACTAM 3.375 GM in SODIUM CHLORIDE 0.9% 100 ML IVPB SCH ×4 (00:36→23:45)
[2018-10-31] MEDS: HEPARIN SODIUM,PORCINE 5,000 UNIT/ML 1 ML VIAL SQ SCH ×4 (00:36→23:42)
[2018-10-31] MEDS: D5-0.45% NACL WITH KCL 20MEQ/L 1,000 ML IV SCH ×3 (02:39→18:26)
[2018-10-31] MEDS: HYDROmorphone 0.5 MG/0.5 ML SYRINGE IVP PRN ×4 (02:39→12:21)
[2018-10-31 05:08] LABS: Anisocytosis Slight; HCT 43.8 % (39.0-53.0); HGB 13.8 gm/dL (13.0-17.5); MCH 29.9 pg (25.0-35.0); MCHC 31.4 g/dL (31.0-37.0); MCV 95.2 fL (80.0-100.0); Mean Platelet Volume 6.8; Platelet Count 354 k/uL (150-450); RBC 4.61 m/uL (4.30-5.90); RDW 16.4 % (11.5-15.5)
[2018-10-31 05:13] LABS: ALT 25 U/L (21-72); AST 31 U/L (17-59); Albumin 3.4 g/dL (3.5-5.0); Alkaline Phosphatase 95 U/L (38-126); Anion Gap 11 mmol/L; Blood Urea Nitrogen 15 mg/dL (9-20); Calcium 8.8 mg/dL (8.4-10.2); Carbon Dioxide 24 mmol/L (22-30); Chloride 102 mmol/L (98-107); Glucose 133 mg/dL (74-99); Magnesium 1.6 mg/dL (1.6-2.3); Potassium 4.3 mmol/L (3.5-5.1); Sodium 137 mmol/L (137-145); Total Bilirubin 0.8 mg/dL (0.2-1.3); Total Protein 6.5 g/dL (6.3-8.2)
[2018-10-31] MEDS ORDERED: Magnesium Replacement Protocol 1 EACH MISC MISCELLANE PRN (05:17)
[2018-10-31] MEDS: MAGNESIUM SULFATE-D5W PMX 1 GM in DEXTROSE/WATER 1 100ML.BAG IVPB SCH ×2 (05:36→06:51)
[2018-10-31 05:37] LABS: Band Neutrophils % 8 %; Lymphocytes # (M) 1.82 k/uL (1.0-4.8); Monocytes # (M) 0.56 k/uL (0-1.0); Neutrophils % (M) 75 %; Nucleated Red Blood Cells 0 /100 WBC (0-0)
[2018-10-31 05:38] LABS: Total Cells Counted 200
[2018-10-31 07:11] LABS: Glucose,Whole Blood 148 mg/dL (75-99)
[2018-10-31] MEDS: PANTOPRAZOLE 40 MG/10 ML VIAL IV SCH (08:35)
--- NOTE | 2018-10-31 08:43 | XR ---
EXAMINATION TYPE: XR chest 1V DATE OF EXAM: 10/31/2018 COMPARISON: 10/31/2018 HISTORY: Shortness of breath TECHNIQUE: Single frontal view of the chest is obtained. FINDINGS: There is right hemidiaphragm elevation. No focal consolidation, pleural effusion or pneumo thorax. Right-sided Mediport again terminates in the distal superior vena cava. Enlargement of the me diastinum may partially be relative secondary to the lower lung volumes, however adenopathy is a poss ibility. No pneumothorax or pleural effusion. Cardiomediastinal silhouette is upper limits of normal. IMPRESSION: 1. New right hemidiaphragm elevation in comparison to prior that may be on the basis of hypoventilati on. If there is concern for diaphragmatic recess sniff test could be performed. 2. Engorgement of the hilum that may represent adenopathy or pulmonary arterial enlargement. This is new from the prior exam.
[2018-10-31] MEDS: IPRATROPIUM-ALBUTEROL 3 ML NEB INHALATION SCH ×3 (10:00→19:17)
--- NOTE | 2018-10-31 10:32 | P.CNPUL ---
History of Present Illness Consult date: 10/31/18 Requesting physician: Lonnie Esteban Reason for consult: other (Critical care management) Chief complaint: Abdominal pain History of present illness: This is a very pleasant 73-year-old gentleman who follows with Dr. Coley as his primary care physician. He has a history of diabetes mellitus, gastroesophageal reflux disease, hyperlipidemia, hypertension, chronic obstructive pulmonary disease and a remote history of chronic tobacco dependence. He also has a history of colon cancer with lung and liver metastasis and had undergone 2 rounds of chemotherapy the last time about 4 weeks ago. He also had a stent placed in the sigmoid colon at [facility]. He presented here to the emergency room yesterday with complaints of constipation and increasing abdominal discomfort. Computed tomography scan of the abdomen revealed a new significant partial colonic obstruction at the metallic stent graft site. There is also significant colonic dilatation without small bowel dilatation. Early pneumatosis could not be excluded. He was seen and evaluated by Dr. Baker and had undergone a sigmoid colectomy with end colostomy yesterday afternoon. Based on the significant surgery and multiple comorbidities he was transferred to the intensive care unit. He is seen there today in consultation at he is currently awake and alert in no acute distress. He denies any worsening shortness of breath, cough or congestion. His pain is fairly well controlled. Chest x-ray reveals a new right hemidiaphragm elevation. There is some engorgement of the hilum possibly representing adenopathy pulmonary arterial enlargement. He is currently maintaining good O2 saturation in the 90s on 4 L/m per nasal cannula. He has an IV of D5.45 normal saline with 20 KCl at 125 ML's per hour. Current temp 99.9. He is tachycardic in the 110's. White count 14.0. Hemoglobin 13.8. Creatinine 0.91. Abdominal dressing is dry and intact. Stoma pink. He remains on DuoNeb inhalations. Heparin for DVT prophylaxis and antibiotics in the form of Zosyn. Review of Systems 14 point review of system was conducted. All negative other than as mentioned in the HPI. Past Medical History Past Medical History: Asthma, Cancer, COPD, Diabetes Mellitus, GERD/Reflux, Hyperlipidemia, Hypertension Additional Past Medical History / Comment(s): ABDOMINAL PAIN AND CONSTIPATION, colon cancer History of Any Multi-Drug Resistant Organisms: None Reported Past Surgical History: No Surgical Hx Reported Additional Past Surgical History / Comment(s): colon stent Past Anesthesia/Blood Transfusion Reactions: No Reported Reaction Additional Past Anesthesia/Blood Transfusion Reaction / Comment(s): NO PRIOR SX HX Past Psychological History: No Psychological Hx Reported Smoking Status: Never smoker Past Alcohol Use History: None Reported Additional Past Alcohol Use History / Comment(s): QUIT SMOKING 2000,smoked approx 30 yrs 1ppd Past Drug Use History: None Reported - Past Family History Father Family Medical History: Cancer Medications and Allergies Home Medications Medication Instructions Recorded Confirmed Type Allopurinol [Zyloprim] 300 mg PO DAILY 08/16/17 10/30/18 History Simvastatin [Zocor] 20 mg PO HS 08/16/17 10/30/18 History Tiotropium 18 Mcg/Puff [Spiriva] 1 puff INHALATION RT-HS 08/16/17 10/30/18 History Zolpidem [Ambien] 5 mg PO HS 08/16/17 10/30/18 History amLODIPine [Norvasc] 5 mg PO QAM 08/16/17 10/30/18 History metFORMIN HCL [Glucophage] 500 mg PO BID 08/16/17 10/30/18 History Allergies Allergy/AdvReac Type Severity Reaction Status Date / Time moxifloxacin [From Avelox] Allergy Swelling Verified 10/30/18 14:27 Physical Exam Vitals: Vital Signs Temp Pulse Pulse Resp BP BP Pulse Ox 10/31/18 10:01 115 H 10/31/18 09:00 116 H 25 H 147/78 94 L 10/31/18 08:00 99.9 F H 117 H 17 142/82 94 L 10/31/18 07:00 115 H 22 141/89 93 L 10/31/18 06:00 113 H 12 146/80 95 10/31/18 05:00 112 H 16 126/85 93 L 10/31/18 04:00 112 H 14 131/91 95 10/31/18 03:30 112 H 14 151/90 95 10/31/18 03:00 112 H 20 146/87 94 L 10/31/18 02:30 105 H 15 140/84 95 10/31/18 02:00 101 H 24 138/91 95 10/31/18 01:30 101 H 22 150/83 95 10/31/18 01:00 105 H 18 153/86 95 10/31/18 00:30 101 H 20 153/86 94 L 10/31/18 00:00 106 H 17 156/89 91 L 10/30/18 23:41 97.6 F 96 15 135/98 90 L 10/30/18 19:40 91 16 145/87 89 L 10/30/18 16:23 97.4 F L 93 18 124/73 98 10/30/18 14:42 74 18 130/75 96 10/30/18 11:54 98.2 F 101 H 18 126/79 97 Intake and Output 10/30/18 10/31/18 10/31/18 22:59 06:59 14:59 Intake Total 2100 825 375 Output Total 200 206 77 Balance 1900 619 298 Intake: IV 2100 825 375 ACETAMINOPHEN IV (For NPO 100 ) 1,000 mg In Empty Bag 1 bag @ 400 mls/hr IVPB ONCE ONE Rx#:[id number] D5-0.45% NaCl with KCl 625 375 20Meq/l 1,000 ml @ 125 mls/hr IV .Q8H [facility] Rx#: [id number] Piperacillin-Tazobactam 3 100 .375 gm In Sodium Chloride 0.9% 100 ml @ 25 mls/hr IVPB ONCE STA Rx# :[id number] Output: Urine 100 206 77 Estimated Blood Loss 100 Other: Voiding Method Indwelling Catheter Indwelling Catheter Weight 99.79 kg 102.8 kg - Constitutional General appearance: average body habitus, no acute distress - EENT Eyes: EOMI, PERRLA ENT: hearing grossly normal Ears: bilateral: normal - Neck Neck: normal ROM Carotids: bilateral: upstroke normal Thyroid: bilateral: normal size - Respiratory Respiratory: bilateral: diminished - Cardiovascular Rhythm: regular Heart sounds: normal: S1, S2 - Gastrointestinal General gastrointestinal: decreased bowel sounds Localized gastrointestinal: tender: diffuse - Integumentary Integumentary: normal turgor - Neurologic Neurologic: CNII-XII intact - Musculoskeletal Musculoskeletal: generalized weakness - Psychiatric Psychiatric: A&O x's 3, appropriate affect, intact judgment & insight Results - Laboratory Findings CBC and BMP: 10/31/18 04:35 10/31/18 04:35 PT/INR, D-dimer PT 10.9 sec (9.0-12.0) 10/30/18 12:33 INR 1.0 (<1.2) 10/30/18 12:33 Abnormal lab findings: Abnormal Labs 10/30/18 10/30/18 10/30/18 12:33 12:33 19:57 WBC RDW 16.3 H Neutrophils # (Manual) Glucose 137 H POC Glucose (mg/dL) 106 H Phosphorus Albumin 10/30/18 10/31/18 10/31/18 23:38 04:35 04:35 WBC 14.0 H RDW 16.4 H Neutrophils # (Manual) 11.60 H Glucose 133 H POC Glucose (mg/dL) 132 H Phosphorus 5.0 H Albumin 3.4 L 10/31/18 06:59 WBC RDW Neutrophils # (Manual) Glucose POC Glucose (mg/dL) 148 H Phosphorus Albumin - Diagnostic Findings Chest x-ray: image reviewed Assessment and Plan Assessment: Impression: #1 Constipation and abdominal pain in a patient found to have a new significant partial colonic obstruction at the metallic stent graft site of known neoplasm. There is significant colonic dilatation without small bowel dilatation. Status post sigmoid colectomy with end colostomy. Postoperative day #1. 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 Status post 4 rounds of chemotherapy. Status post stent placement in the sigmoid colon. Last computed tomography scan in August 2018 revealed the metallic stent across the mid sigmoid colon. He was decreased size in the metastatic portacaval lymph node and smaller pulmonary nodules and stable hepatic lesions. Stable pericardiac lymph node. #3 Chronic obstructive pulmonary disease. #4 Diabetes mellitus. #5 Hypertension. #6 Hyperlipidemia. #7 Gastroesophageal reflux disease. Plan: The patient was seen and evaluated by Dr. Garcia. Chest x-ray and labs were all reviewed. We will add an incentive spirometer and encourage increased use and cough and deep breathing exercises. Continue with bronchodilators. Continue with IV Zosyn. Heparin for DVT prophylaxis. Protonix for GI prophylaxis. We will increase his activity as tolerated. We'll continue to monitor him here in the intensive care unit another 24 hours. We'll continue to follow make further recommendations based on his clinical status. I, the cosigning physician, performed a history & physical examination of the patient. Lungs sounds with few scattered rhonchi, crackles in the posterior bases.. Maintaining good O2 saturations in the 90s on 4 L/m per nasal cannula. I discussed the assessment and plan of care with my nurse practitioner, Marilyn Peterson. I attest to the above note as dictated by her. Time with Patient: Greater than 30
--- NOTE | 2018-10-31 12:03 | P.CON ---
Consult Note - . Consult date: 10/31/18 Assessment/Plan:: Consulting service: Hospitalist Reason for consultation: Medical management HPI: This is a very pleasant 73-year-old gentleman who is status post sigmoid colectomy with end colostomy done yesterday by Dr. Esteban. Patient was transferred to ICU status post surgery. Senior Sales Executive is on consult as well. Hospitalist service was consulted for medical management. Patient follows with Dr. Patrick as an outpatient for primary care needs. At the time of examination the patient is complaining of pain in his belly. He seemed to have a lag period In between me asking questions and an him answering. Apparently according to the nurse he was confused and delirious after surgery but is mentation is slowly improving although is still delirious. The patient does not complain of any Chest pain, racing heart, he does not complain of any cough or shortness of breath, no nausea no vomiting, no tingling numbness of the extremities, no itch or rash REVIEW OF SYSTEMS: ENT: No diminished vision or hearing. CARDIOVASCULAR: Mentioned earlier. RESPIRATORY: As mentioned earlier. GI: No nauscea, vomiting or diarrhea. : No dysuria or retention. NERVOUS SYSTEM: No numbness or weakness. ALLERGY/IMMUNOLOGY: No asthma or hay fever. HEMATOLOGY/ONCOLOGY: No history of anemia. CONSTITUTIONAL: As mentioned earlier. DERMATOLOGY: Negative. PSYCHIATRY: Mentioned earlier. RHEUMATOLOGY: Negative. Past medical history: Asthma history of colon cancer, COPD, diabetes mellitus, GERD, hyperlipidemia, hypertension Past surgical history : Stent in the colon previously at [facility] for colonic obstruction Social history : Patient is a former smoker, nausea workup, nausea and drug abuse Family history: Significant for cancer in father Physical exam Vitals: Reviewed and are stable Gen.: Patient is alert oriented but is delirious and having lag period HEENT: Head atraumatic normocephalic, PERRLA, no pallor or icterus, no pain or discharge from ear or nose Throat: No erythema no exudate Neck: No neck enlargement, no thyroid enlargement CVS: S1-S2 positive Abdomen: Dressing in place status post surgery. Patient having diminished bowel sounds Respiration: Normal breath sounds are equally, no rhonchi no rales and wheezing Neuro: Alert oriented but is delirious, moving all his upper and lower extremities Extremities: No edema pulses positive Assessment - Status post colectomy - History of colon cancer - History of COPD - Diabetes - Hypertension - Hyperlipidemia Plan Patient admitted in ICU We'll continue to monitor the patient Pulmonology on board, continue incentive spirometer cough and deep breathing Continue Zosyn as per primary service DVT prophylaxis as per primary service We'll continue to monitor the patient
[2018-10-31] MEDS: LACTATED RINGERS 1,000 ML IV SCH ×2 (12:22→15:01)
[2018-10-31 12:23] LABS: Glucose,Whole Blood 157 mg/dL (75-99)
[2018-10-31 12:39] LABS: Hemoglobin A1C 5.5 % (4.0-6.0)
[2018-10-31] MEDS: INSULIN ASPART 100 UNIT/ML 1 ML 10 ML VIAL SQ SCH ×2 (12:46→18:21)
--- NOTE | 2018-10-31 15:56 | P.PN ---
Subjective Progress Note Date: 10/31/18 Principal diagnosis: Colonic obstruction Patient remains extubated. Mildly short of breath. White blood cell count 14. Hemoglobin is stable. Urine output adequate. Complaining of mild discomfort. He is having flatus and liquid stool through the ostomy. He is tachycardic. Objective - Vital Signs Vital signs: Vital Signs Temp 99.1 F 10/31/18 12:00 Pulse 128 H 10/31/18 15:32 Resp 24 10/31/18 15:32 BP 128/74 10/31/18 15:00 Pulse Ox 96 10/31/18 15:32 Intake & Output 10/30/18 10/31/18 10/31/18 18:59 06:59 18:59 Intake Total 2925 2225 Output Total 406 237 Balance 9 1987 Weight 99.79 kg 102.8 kg Intake: IV 2925 2225 ACETAMINOPHEN IV (For NPO 100 ) 1,000 mg In Empty Bag 1 bag @ 400 mls/hr IVPB ONCE ONE Rx#:[id number] D5-0.45% NaCl with KCl 625 1125 20Meq/l 1,000 ml @ 125 mls/hr IV .Q8H [facility] Rx#: [id number] Lactated Ringers 1,000 ml 1000 @ 999 mls/hr IV .Q1H1M [facility] Rx#:[id number] Piperacillin-Tazobactam 3 100 100 .375 gm In Sodium Chloride 0.9% 100 ml @ 25 mls/hr IVPB ONCE [facility] Rx# :[id number] Output: Urine 306 237 Estimated Blood Loss 100 Other: Voiding Method Indwelling Catheter Indwelling Catheter - Exam Abdomen: Soft, less distended, ostomy pink and functioning, incision clean and dry, mild tenderness diffusely - Labs CBC & Chem 7: 10/31/18 04:35 10/31/18 04:35 Labs: Abnormal Lab Results - Last 24 Hours (Table) 10/30/18 10/30/18 10/31/18 Range/Units 19:57 23:38 04:35 WBC 14.0 H (3.8-10.6) k/uL RDW 16.4 H (11.5-15.5) % Neutrophils # (Manual) 11.60 H (1.3-7.7) k/uL Glucose (74-99) mg/dL POC Glucose (mg/dL) 106 H 132 H (75-99) mg/dL Phosphorus (2.5-4.5) mg/dL Albumin (3.5-5.0) g/dL 10/31/18 10/31/18 10/31/18 Range/Units 04:35 06:59 12:11 WBC (3.8-10.6) k/uL RDW (11.5-15.5) % Neutrophils # (Manual) (1.3-7.7) k/uL Glucose 133 H (74-99) mg/dL POC Glucose (mg/dL) 148 H 157 H (75-99) mg/dL Phosphorus 5.0 H (2.5-4.5) mg/dL Albumin 3.4 L (3.5-5.0) g/dL Assessment and Plan (1) Colonic obstruction Narrative/Plan: Keep nothing by mouth for now. Add Toradol for pain control. Gradually increase activities. Discussed with the patient's family to discuss amongst themselves regarding CODE STATUS. They plan to inform us as to their preferences soon. For now the patient remains full code. Current Visit: Yes Status: Acute Code(s): K56.609 - UNSP INTESTNL OBST, UNSP TO PARTIAL VERSUS COMPLETE OBST SNOMED Code(s): 52809750
[2018-10-31] MEDS ORDERED: LACTATED RINGERS 500 ML IV ONE (16:39)
[2018-10-31] MEDS: KETOROLAC 30 MG/ML 1 ML VIAL IVP SCH ×2 (17:10→23:42)
[2018-10-31] MEDS: ACETAMINOPHEN IV (For NPO) 1,000 MG in EMPTY BAG 1 BAG IVPB SCH ×2 (18:05→23:43)
[2018-10-31 18:13] LABS: Glucose,Whole Blood 122 mg/dL (75-99)
[2018-11-01] MEDS: INSULIN ASPART 100 UNIT/ML 1 ML 10 ML VIAL SQ SCH ×4 (00:06→18:09)
[2018-11-01] MEDS: IPRATROPIUM-ALBUTEROL 3 ML NEB INHALATION PRN (00:13)
[2018-11-01 00:17] LABS: Glucose,Whole Blood 129 mg/dL (75-99)
[2018-11-01] MEDS: D5-0.45% NACL WITH KCL 20MEQ/L 1,000 ML IV SCH ×3 (01:00→16:49)
[2018-11-01 05:22] LABS: Anisocytosis Slight; Basophils % (A) 0 %; Eosinophils # (A) 0.1 k/uL (0-0.7); Eosinophils % (A) 1 %; HCT 36.5 % (39.0-53.0); HGB 11.3 gm/dL (13.0-17.5); Hypochromasia Slight; Lymphocytes # (A) 1.2 k/uL (1.0-4.8); Lymphocytes % (A) 10 %; MCH 30.1 pg (25.0-35.0); MCHC 30.9 g/dL (31.0-37.0); MCV 97.2 fL (80.0-100.0); Macrocytosis Slight; Mean Platelet Volume 6.9; Monocytes # (A) 0.6 k/uL (0-1.0); Monocytes % (A) 5 %; Neutrophils # (A) 9.1 k/uL (1.3-7.7); Neutrophils % (A) 81 %; Platelet Count 238 k/uL (150-450); RBC 3.76 m/uL (4.30-5.90); RDW 16.7 % (11.5-15.5); WBC 11.1 k/uL (3.8-10.6)
[2018-11-01 05:27] LABS: Calcium 8.1 mg/dL (8.4-10.2)
[2018-11-01] MEDS: ACETAMINOPHEN IV (For NPO) 1,000 MG in EMPTY BAG 1 BAG IVPB SCH ×2 (05:56→12:36)
[2018-11-01] MEDS: KETOROLAC 30 MG/ML 1 ML VIAL IVP SCH ×3 (05:56→18:09)
[2018-11-01 06:19] LABS: Glucose,Whole Blood 112 mg/dL (75-99)
--- NOTE | 2018-11-01 07:13 | XR ---
EXAMINATION TYPE: XR chest 1V portable DATE OF EXAM: 11/01/2018 Comparison: 10/31/2018 Clinical History: 73-year-old male SOB Findings: Heart borderline enlarged. Mild diffuse interstitial prominence is similar. Hilar prominence is again demonstrated with asymmetric elevation of right hemidiaphragm. Some patchy medial right basilar and retrocardiac opacity. Right anterior chest wall injection port with catheter tip is in mid SVC. Impression: 1. Borderline heart size and interstitial prominence. Correlate to exclude a component of mild pulmon con vascular congestion. 2. Some similar patchy retrocardiac and right basilar atelectasis or infiltrate.
[2018-11-01] MEDS: IPRATROPIUM-ALBUTEROL 3 ML NEB INHALATION SCH ×4 (08:12→20:02)
[2018-11-01] MEDS: HEPARIN SODIUM,PORCINE 5,000 UNIT/ML 1 ML VIAL SQ SCH ×2 (08:24→16:49)
[2018-11-01] MEDS: PIPERACILLIN-TAZOBACTAM 3.375 GM in SODIUM CHLORIDE 0.9% 100 ML IVPB SCH ×2 (08:24→16:49)
[2018-11-01] MEDS: PANTOPRAZOLE 40 MG/10 ML VIAL IV SCH (08:25)
--- NOTE | 2018-11-01 09:51 | P.PN ---
Subjective Progress Note Date: 11/01/18 Principal diagnosis: Colonic obstruction Patient feels better today. Better ostomy function. White blood cell count 11.1. Heart rate normal. He is thirsty. Adequate urine output Objective - Vital Signs Vital signs: Vital Signs Temp 98.2 F 11/01/18 08:00 Pulse 96 11/01/18 08:30 Resp 16 11/01/18 08:00 BP 127/73 11/01/18 08:00 Pulse Ox 95 11/01/18 08:00 Intake & Output 10/31/18 11/01/18 11/01/18 18:59 06:59 18:59 Intake Total 2700 1500 125 Output Total 442 275 30 Balance 2258 1225 95 Weight 106.9 kg Intake: IV 2700 1500 125 D5-0.45% NaCl with KCl 1500 1500 125 20Meq/l 1,000 ml @ 125 mls/hr IV .Q8H [facility] Rx#: [id number] Lactated Ringers 1,000 ml 1000 @ 999 mls/hr IV .Q1H1M [facility] Rx#:[id number] Piperacillin-Tazobactam 3 200 .375 gm In Sodium Chloride 0.9% 100 ml @ 25 mls/hr IVPB ONCE STA Rx# :[id number] Output: Urine 292 275 30 Stool 150 Other: Voiding Method Indwelling Catheter Indwelling Catheter - Exam Abdomen: Soft, less distended, mild incisional tenderness, ostomy functioning - Labs CBC & Chem 7: 11/01/18 04:47 11/01/18 04:47 Labs: Abnormal Lab Results - Last 24 Hours (Table) 10/31/18 10/31/18 11/01/18 Range/Units 12:11 18:02 00:05 WBC (3.8-10.6) k/uL RBC (4.30-5.90) m/uL Hgb (13.0-17.5) gm/dL Hct (39.0-53.0) % MCHC (31.0-37.0) g/dL RDW (11.5-15.5) % Neutrophils # (1.3-7.7) k/uL Sodium (137-145) mmol/L Glucose (74-99) mg/dL POC Glucose (mg/dL) 157 H 122 H 129 H (75-99) mg/dL Calcium (8.4-10.2) mg/dL 11/01/18 11/01/18 11/01/18 Range/Units 04:47 04:47 06:08 WBC 11.1 H (3.8-10.6) k/uL RBC 3.76 L (4.30-5.90) m/uL Hgb 11.3 L (13.0-17.5) gm/dL Hct 36.5 L (39.0-53.0) % MCHC 30.9 L (31.0-37.0) g/dL RDW 16.7 H (11.5-15.5) % Neutrophils # 9.1 H (1.3-7.7) k/uL Sodium 135 L (137-145) mmol/L Glucose 119 H (74-99) mg/dL POC Glucose (mg/dL) 112 H (75-99) mg/dL Calcium 8.1 L (8.4-10.2) mg/dL Assessment and Plan (1) Colonic obstruction Narrative/Plan: Begin clear liquid diet. Increase activity level. May transfer out of ICU. Continue pulmonary toilet. Current Visit: Yes Status: Acute Code(s): K56.609 - UNSP INTESTNL OBST, UNSP TO PARTIAL VERSUS COMPLETE OBST SNOMED Code(s): 24408988
--- NOTE | 2018-11-01 10:22 | P.PN ---
Subjective Progress Note Date: 11/01/18 Principal diagnosis: Constipation abdominal pain with colonic obstruction and history of neoplasm. Status post sigmoid colectomy with end colostomy. This is a very pleasant 73-year-old gentleman who follows with Dr. Coley as his primary care physician. He has a history of diabetes mellitus, gastroesophageal reflux disease, hyperlipidemia, hypertension, chronic obstructive pulmonary disease and a remote history of chronic tobacco dependence. He also has a history of colon cancer with lung and liver metastasis and had undergone 2 rounds of chemotherapy the last time about 4 weeks ago. He also had a stent placed in the sigmoid colon at [facility]. He presented here to the emergency room yesterday with complaints of constipation and increasing abdominal discomfort. Computed tomography scan of the abdomen revealed a new significant partial colonic obstruction at the metallic stent graft site. There is also significant colonic dilatation without small bowel dilatation. Early pneumatosis could not be excluded. He was seen and evaluated by Dr. Baker and had undergone a sigmoid colectomy with end colostomy yesterday afternoon. Based on the significant surgery and multiple comorbidities he was transferred to the intensive care unit. He is seen there today in consultation at he is currently awake and alert in no acute distress. He denies any worsening shortness of breath, cough or congestion. His pain is fairly well controlled. Chest x-ray reveals a new right hemidiaphragm elevation. There is some engorgement of the hilum possibly representing adenopathy pulmonary arterial enlargement. He is currently maintaining good O2 saturation in the 90s on 4 L/m per nasal cannula. He has an IV of D5.45 normal saline with 20 KCl at 125 ML's per hour. Current temp 99.9. He is tachycardic in the 110's. White count 14.0. Hemoglobin 13.8. Creatinine 0.91. Abdominal dressing is dry and intact. Stoma pink. He remains on DuoNeb inhalations. Heparin for DVT prophylaxis and antibiotics in the form of Zosyn. The patient is seen today 11/01/2018 in follow-up in the intensive care unit. He remains awake and alert in no acute distress. He is maintaining O2 saturations in the low 90s on 4 L/m per nasal cannula. Today's chest x-ray shows by basilar atelectasis with low lung volumes in the right. He is afebrile. He is working with the incentive spirometer. White count 11.1. Hemoglobin 11.3. Creatinine 1.06. His pain is well controlled. His ostomy is patent. Objective - Vital Signs Vital signs: Vital Signs Temp 98.2 F 11/01/18 08:00 Pulse 98 11/01/18 10:00 Resp 15 11/01/18 10:00 BP 126/65 11/01/18 10:00 Pulse Ox 94 L 11/01/18 10:00 Intake & Output 10/31/18 11/01/18 11/01/18 18:59 06:59 18:59 Intake Total 2700 1500 500 Output Total 442 275 155 Balance 2258 1225 345 Weight 106.9 kg Intake: IV 2700 1500 500 D5-0.45% NaCl with KCl 1500 1500 500 20Meq/l 1,000 ml @ 125 mls/hr IV .Q8H [facility] Rx#: [id number] Lactated Ringers 1,000 ml 1000 @ 999 mls/hr IV .Q1H1M [facility] OF [facility] Rx#:[id number] Piperacillin-Tazobactam 3 200 .375 gm In Sodium Chloride 0.9% 100 ml @ 25 mls/hr IVPB ONCE STA Rx# :[id number] Output: Urine 292 275 155 Stool 150 Other: Voiding Method Indwelling Catheter Indwelling Catheter Indwelling Catheter - Exam General appearance: average body habitus, no acute distress - EENT Eyes: EOMI, PERRLA ENT: hearing grossly normal Ears: bilateral: normal - Neck Neck: normal ROM Carotids: bilateral: upstroke normal Thyroid: bilateral: normal size - Respiratory Respiratory: bilateral: diminished - Cardiovascular Rhythm: regular Heart sounds: normal: S1, S2 - Gastrointestinal General gastrointestinal: decreased bowel sounds Localized gastrointestinal: tender: ostomy patent. - Integumentary Integumentary: normal turgor - Neurologic Neurologic: CNII-XII intact - Musculoskeletal Musculoskeletal: generalized weakness - Psychiatric Psychiatric: A&O x's 3, appropriate affect, intact judgment & insight - Labs CBC & Chem 7: 11/01/18 04:47 11/01/18 04:47 Labs: Abnormal Lab Results - Last 24 Hours (Table) 10/31/18 10/31/18 11/01/18 Range/Units 12:11 18:02 00:05 WBC (3.8-10.6) k/uL RBC (4.30-5.90) m/uL Hgb (13.0-17.5) gm/dL Hct (39.0-53.0) % MCHC (31.0-37.0) g/dL RDW (11.5-15.5) % Neutrophils # (1.3-7.7) k/uL Sodium (137-145) mmol/L Glucose (74-99) mg/dL POC Glucose (mg/dL) 157 H 122 H 129 H (75-99) mg/dL Calcium (8.4-10.2) mg/dL 11/01/18 11/01/18 11/01/18 Range/Units 04:47 04:47 06:08 WBC 11.1 H (3.8-10.6) k/uL RBC 3.76 L (4.30-5.90) m/uL Hgb 11.3 L (13.0-17.5) gm/dL Hct 36.5 L (39.0-53.0) % MCHC 30.9 L (31.0-37.0) g/dL RDW 16.7 H (11.5-15.5) % Neutrophils # 9.1 H (1.3-7.7) k/uL Sodium 135 L (137-145) mmol/L Glucose 119 H (74-99) mg/dL POC Glucose (mg/dL) 112 H (75-99) mg/dL Calcium 8.1 L (8.4-10.2) mg/dL Assessment and Plan Assessment: Impression: #1 Constipation and abdominal pain in a patient found to have a new significant partial colonic obstruction at the metallic stent graft site of known neoplasm. There is significant colonic dilatation without small bowel dilatation. Status post sigmoid colectomy with end colostomy. Postoperative day #2. 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 Status post 4 rounds of chemotherapy. Status post stent placement in the sigmoid colon. Last computed tomography scan in August 2018 revealed the metallic stent across the mid sigmoid colon. He was decreased size in the metastatic portacaval lymph node and smaller pulmonary nodules and stable hepatic lesions. Stable pericardiac lymph node. #3 Chronic obstructive pulmonary disease. #4 Diabetes mellitus. #5 Hypertension. #6 Hyperlipidemia. #7 Gastroesophageal reflux disease. Plan: The patient was seen and evaluated by Dr. Garcia. Chest x-ray and labs were all reviewed. Continue with IV Zosyn. Continue incentive spirometer and encourage increased use and cough and deep breathing exercises. Continue with bronchodilators. He remains on heparin for DVT prophylaxis. Protonix for GI prophylaxis. We will increase his activity as tolerated. We'll continue to monitor him here in the intensive care unit another 24 hours. We'll continue to follow make further recommendations based on his clinical status. I, the cosigning physician, performed a history & physical examination of the patient. Lungs sounds with few scattered rhonchi, crackles in the posterior bases.. Maintaining good O2 saturations in the 90s on 4 L/m per nasal cannula. I discussed the assessment and plan of care with my nurse practitioner, Marilyn Peterson. I attest to the above note as dictated by her. Time with Patient: Greater than 30
[2018-11-01 12:44] LABS: Glucose,Whole Blood 121 mg/dL (75-99)
[2018-11-01] MEDS: NYSTATIN 100,000 UNIT/ML SUSP 500,000 UNIT/5 ML CUP PO SCH ×3 (13:27→22:40)
--- NOTE | 2018-11-01 14:43 | P.PN ---
Subjective Progress Note Date: 11/01/18 Patient more alert today He's complaining of tenderness especially when he coughs but otherwise he does not complain of any nausea or vomiting Objective - Vital Signs Vital signs: Vital Signs Temp 97.4 F L 11/01/18 12:00 Pulse 108 H 11/01/18 14:00 Resp 25 H 11/01/18 14:00 BP 143/74 11/01/18 14:00 Pulse Ox 94 L 11/01/18 14:00 Intake & Output 10/31/18 11/01/18 11/01/18 18:59 06:59 18:59 Intake Total 2700 1500 1150 Output Total 442 275 310 Balance 2258 1225 840 Weight 106.9 kg Intake: IV 2700 1500 1150 ACETAMINOPHEN IV (For NPO 100 ) 1,000 mg In Empty Bag 1 bag @ 400 mls/hr IVPB Q6HR [facility] Rx#:[id number] D5-0.45% NaCl with KCl 1500 1500 1000 20Meq/l 1,000 ml @ 125 mls/hr IV .Q8H [facility] Rx#: [id number] Lactated Ringers 1,000 ml 1000 @ 999 mls/hr IV .Q1H1M [facility] Rx#:[id number] Piperacillin-Tazobactam 3 200 .375 gm In Sodium Chloride 0.9% 100 ml @ 25 mls/hr IVPB ONCE [facility] Rx# :[id number] Piperacillin-Tazobactam 3 50 .375 gm In Sodium Chloride 0.9% 100 ml @ 25 mls/hr IVPB Q8HR [facility] Rx# :[id number] Output: Urine 292 275 310 Stool 150 Other: Voiding Method Indwelling Catheter Indwelling Catheter Indwelling Catheter - Exam On exam, alert and oriented x3. HEENT: Conjunctivae normal. eyes normal. NECK: No JVD. No thyroid enlargement. No LNs CARDIOVASCULAR: S1-S2 positive, tachycardic RESPIRATION: Breath sounds diminished in the bases. No rhonchi or crackles. No bronchial breathing. ABDOMEN: Soft, tender. No guarding. no masses palpable. No ascites, No hepatosplenomegaly.Bowel sounds diminished. LEGS: No edema. no swelling NERVOUS SYSTEM: Cranial N 2-12 grossly normal. Moves all 4 limbs. No focal deficits. No sensory deficit. No signs of cerebellar dysfucntion. Skin: no ulcer no rash Joints: No active swelling. No inflammation. Lymphatic system. No LN neck axilla or groin. - Labs CBC & Chem 7: 11/01/18 04:47 11/01/18 04:47 Labs: Abnormal Lab Results - Last 24 Hours (Table) 10/31/18 11/01/18 11/01/18 Range/Units 18:02 00:05 04:47 WBC 11.1 H (3.8-10.6) k/uL RBC 3.76 L (4.30-5.90) m/uL Hgb 11.3 L (13.0-17.5) gm/dL Hct 36.5 L (39.0-53.0) % MCHC 30.9 L (31.0-37.0) g/dL RDW 16.7 H (11.5-15.5) % Neutrophils # 9.1 H (1.3-7.7) k/uL Sodium (137-145) mmol/L Glucose (74-99) mg/dL POC Glucose (mg/dL) 122 H 129 H (75-99) mg/dL Calcium (8.4-10.2) mg/dL 11/01/18 11/01/18 11/01/18 Range/Units 04:47 06:08 12:32 WBC (3.8-10.6) k/uL RBC (4.30-5.90) m/uL Hgb (13.0-17.5) gm/dL Hct (39.0-53.0) % MCHC (31.0-37.0) g/dL RDW (11.5-15.5) % Neutrophils # (1.3-7.7) k/uL Sodium 135 L (137-145) mmol/L Glucose 119 H (74-99) mg/dL POC Glucose (mg/dL) 112 H 121 H (75-99) mg/dL Calcium 8.1 L (8.4-10.2) mg/dL Assessment and Plan Assessment: - Status post colectomy - History of colon cancer - History of COPD - History of diabetes - Hypertension - Hyperlipidemia Plan: - Continue management as per primary team - Continue Zosyn - Continue pain management - Patient to try oral intake today as per surgery team. Advancement of diet as per surgery team - Continue incentive spirometry, deep breathing. Pulmonology following the patient - We'll continue to follow the patient
[2018-11-01 18:14] LABS: Glucose,Whole Blood 145 mg/dL (75-99)
[2018-11-01 23:45] LABS: Glucose,Whole Blood 107 mg/dL (75-99)
[2018-11-02] MEDS: IPRATROPIUM-ALBUTEROL 3 ML NEB INHALATION PRN (00:04)
[2018-11-02] MEDS: PIPERACILLIN-TAZOBACTAM 3.375 GM in SODIUM CHLORIDE 0.9% 100 ML IVPB SCH ×4 (00:23→23:52)
[2018-11-02] MEDS: KETOROLAC 30 MG/ML 1 ML VIAL IVP SCH ×3 (00:24→12:45)
[2018-11-02] MEDS: HEPARIN SODIUM,PORCINE 5,000 UNIT/ML 1 ML VIAL SQ SCH ×4 (00:25→23:52)
--- NOTE | 2018-11-02 00:54 | XR ---
EXAMINATION TYPE: XR chest 1V portable DATE OF EXAM: 11/02/2018 COMPARISON: Yesterday HISTORY: Short of breath TECHNIQUE: Single frontal view of the chest is obtained. FINDINGS: There is slight elevated right diaphragm. There is no heart failure nor confluent pneumoni c infiltrate. There is right central venous catheter with the tip in the superior vena cava. There ar e chest leads. IMPRESSION: No active cardiopulmonary disease. Mild chronic elevation of the right diaphragm. No hea rt failure.
[2018-11-02] MEDS: MORPHINE SULFATE 4 MG/ML SYRINGE IV PRN (00:55)
[2018-11-02] MEDS: INSULIN ASPART 100 UNIT/ML 1 ML 10 ML VIAL SQ SCH ×5 (00:56→23:49)
[2018-11-02] MEDS ORDERED: ALPRAZolam 0.5 MG TAB PO STA (01:41)
[2018-11-02 04:47] LABS: Anisocytosis Slight; Basophils % (A) 0 %; Eosinophils # (A) 0.1 k/uL (0-0.7); Eosinophils % (A) 2 %; HCT 37.5 % (39.0-53.0); HGB 11.2 gm/dL (13.0-17.5); Hypochromasia Slight; Lymphocytes # (A) 0.7 k/uL (1.0-4.8); Lymphocytes % (A) 8 %; MCH 29.1 pg (25.0-35.0); MCHC 29.9 g/dL (31.0-37.0); MCV 97.4 fL (80.0-100.0); Macrocytosis Slight; Mean Platelet Volume 6.9; Monocytes # (A) 0.4 k/uL (0-1.0); Monocytes % (A) 4 %; Neutrophils # (A) 7.6 k/uL (1.3-7.7); Neutrophils % (A) 84 %; Platelet Count 250 k/uL (150-450); RBC 3.85 m/uL (4.30-5.90); RDW 16.6 % (11.5-15.5)
[2018-11-02 05:00] LABS: Anion Gap 9 mmol/L; Blood Urea Nitrogen 15 mg/dL (9-20); Calcium 8.1 mg/dL (8.4-10.2); Carbon Dioxide 22 mmol/L (22-30); Chloride 104 mmol/L (98-107); Glucose 114 mg/dL (74-99); Phosphorus 3.1 mg/dL (2.5-4.5); Potassium 4.5 mmol/L (3.5-5.1); Sodium 135 mmol/L (137-145)
[2018-11-02] MEDS ORDERED: HALOPERIDOL LACTATE 5 MG/ML 1 ML VIAL IM PRN (05:27)
[2018-11-02] MEDS ORDERED: HALOPERIDOL LACTATE 5 MG/ML 1 ML VIAL IM STA (05:32)
[2018-11-02] MEDS: D5-0.45% NACL WITH KCL 20MEQ/L 1,000 ML IV SCH ×4 (05:39→20:38)
[2018-11-02 06:27] LABS: Glucose,Whole Blood 145 mg/dL (75-99)
[2018-11-02] MEDS ORDERED: HALOPERIDOL LACTATE 5 MG/ML 1 ML VIAL IVP STA (07:13)
[2018-11-02] MEDS: IPRATROPIUM-ALBUTEROL 3 ML NEB INHALATION SCH ×4 (07:24→19:51)
[2018-11-02] MEDS: PANTOPRAZOLE 40 MG/10 ML VIAL IV SCH (08:46)
[2018-11-02] MEDS: NYSTATIN 100,000 UNIT/ML SUSP 500,000 UNIT/5 ML CUP PO SCH ×4 (09:21→23:56)
--- NOTE | 2018-11-02 09:27 | PN ---
PROGRESS NOTE 11/02/2018. This is a 73-year-old male with constipation and abdominal pain. He was found to have partial colonic obstruction and the patient underwent resection. The patient is doing reasonably well. He is currently on 4 L nasal cannula. He is on a dextrose IV with half-normal saline, 20 potassium at 125 mL an hour. The patient is going to receive some Haldol IV for confusion, agitation and delirium. The primary service tried some Xanax and smaller doses of Haldol earlier. Anyway, the patient had surgery done by Dr. Esteban. He had a sigmoid colectomy with colostomy. Other than his mental status changes, the patient is progressing very nicely. He does have a history of diabetes mellitus, gastroesophageal reflux disease, hyperlipidemia, hypertension, COPD, and remote history of tobacco dependence. Current vital signs are reviewed. Temperature is 98.4, heart rate is elevated at 110, respiratory rate about 28-32 breaths per minute, blood pressure 137/73, mean 94 and 4 L saturation is 99%. After the Haldol he received this morning, he is a bit more. Earlier he was quite agitated. HEENT examination is grossly unremarkable. Nasal O2 in place. Mucous membranes are moist. Neck is supple. Cardiovascular examination reveals a regular rhythm and rate. He is tachycardic. Heart rate about 110 beats per minute. No murmur. Lungs reveal a few scattered rhonchi. Breath sounds are equal bilaterally. Abdomen is soft. Colostomy is noted. Extremities are intact. No cyanosis, clubbing, or edema. Skin without rash. Neurologic examination is difficult to evaluate, but he does move all 4 extremities. Microbiologic lab studies are pending or negative. Labs reviewed. White count 9, hemoglobin 11.2, hematocrit 37.5, and platelet count 350,000. Sodium 135, potassium 4.5, chloride 104, CO2 22, anion gap 9, BUN and creatinine were 15 and 0.88. MEDICATIONS ARE: Reviewed. He is currently on Zosyn. He is on updrafts. I did give him some Haldol today to see if we could calm him down. Chest x-ray was reviewed. Chest x-ray shows no active cardiopulmonary disease. ASSESSMENT: 1. Postop day #3 status post sigmoid colectomy with end colostomy secondary to partial colonic obstruction at the metallic stent graft site of no neoplasm. 2. Invasive adenocarcinoma of the colon with liver and lung metastasis diagnosed in August 2017, status post 4 rounds chemotherapy. The patient is status post placement of a metallic stent in the sigmoid colon. 3. Chronic obstructive pulmonary disease. 4. Diabetes. 5. Hypertension. 6. Hyperlipidemia. 7. Gastroesophageal reflux disease. 8. Mental status changes with confusion, agitation and delirium. This is likely metabolic in origin. We will use Haldol to see if we cannot settle the patient down a bit. PLAN: The patient will continue with his nasal O2 in his IV. We continue to monitor his electrolytes and labs on a daily basis. Chest x-ray shows no acute disease. We will use Haldol for sedation. Additional recommendations and suggestions are forthcoming. Prognosis is very guarded. Chest x-ray, labs and medications are all reviewed. The patient remains on Zosyn as prophylactic antibiotics. He is using incentive spirometer and we recommend deep breathing, coughing and clearing of secretions. Again prognosis is very guarded. Critical care time is 32 minutes. YOSI / VASQUEZN: [id number] /
[2018-11-02] MEDS ORDERED: HALOPERIDOL LACTATE 5 MG/ML 1 ML VIAL IVP PRN (10:24)
[2018-11-02] MEDS: HYDROmorphone 0.5 MG/0.5 ML SYRINGE IVP PRN (10:34)
[2018-11-02 12:54] LABS: Glucose,Whole Blood 122 mg/dL (75-99)
--- NOTE | 2018-11-02 13:35 | P.PN ---
Subjective Progress Note Date: 11/02/18 Principal diagnosis: Colonic obstruction Patient became very agitated last night. More comfortable now. Blood cell count 9. Hemoglobin stable. Continues to have ostomy function. Objective - Vital Signs Vital signs: Vital Signs Temp 98.3 F 11/02/18 12:00 Pulse 99 11/02/18 13:00 Resp 13 11/02/18 13:00 BP 126/68 11/02/18 13:00 Pulse Ox 95 11/02/18 13:00 Intake & Output 11/01/18 11/02/18 11/02/18 18:59 06:59 18:59 Intake Total 1750 1600 625 Output Total 680 1090 205 Balance 1070 510 420 Weight 108.3 kg Intake: IV 1750 1600 625 ACETAMINOPHEN IV (For NPO 100 ) 1,000 mg In Empty Bag 1 bag @ 400 mls/hr IVPB Q6HR [facility] Rx#:[id number] D5-0.45% NaCl with KCl 1500 1500 625 20Meq/l 1,000 ml @ 125 mls/hr IV .Q8H [facility] Rx#: [id number] Piperacillin-Tazobactam 3 100 .375 gm In Sodium Chloride 0.9% 100 ml @ 25 mls/hr IVPB ONCE [facility] Rx# :[id number] Piperacillin-Tazobactam 3 50 100 .375 gm In Sodium Chloride 0.9% 100 ml @ 25 mls/hr IVPB Q8HR [facility] Rx# :[id number] Output: Urine 480 890 205 Stool 200 Emesis 200 Other: Voiding Method Indwelling Catheter Indwelling Catheter Indwelling Catheter - Exam Abdomen: Soft, mild distention, incision clean and dry, ostomy functioning - Labs CBC & Chem 7: 11/02/18 04:15 11/02/18 04:15 Labs: Abnormal Lab Results - Last 24 Hours (Table) 11/01/18 11/01/18 11/02/18 Range/Units 18:02 23:32 04:15 RBC 3.85 L (4.30-5.90) m/uL Hgb 11.2 L (13.0-17.5) gm/dL Hct 37.5 L (39.0-53.0) % MCHC 29.9 L (31.0-37.0) g/dL RDW 16.6 H (11.5-15.5) % Lymphocytes # 0.7 L (1.0-4.8) k/uL Sodium (137-145) mmol/L Glucose (74-99) mg/dL POC Glucose (mg/dL) 145 H 107 H (75-99) mg/dL Calcium (8.4-10.2) mg/dL 11/02/18 11/02/18 11/02/18 Range/Units 04:15 06:16 12:42 RBC (4.30-5.90) m/uL Hgb (13.0-17.5) gm/dL Hct (39.0-53.0) % MCHC (31.0-37.0) g/dL RDW (11.5-15.5) % Lymphocytes # (1.0-4.8) k/uL Sodium 135 L (137-145) mmol/L Glucose 114 H (74-99) mg/dL POC Glucose (mg/dL) 145 H 122 H (75-99) mg/dL Calcium 8.1 L (8.4-10.2) mg/dL Assessment and Plan (1) Colonic obstruction Narrative/Plan: Continue liquid diet for now. Monitor the patient's symptoms of confusion which are likely on the basis of sleep deprivation. Patient is family denies any alcohol use as outpatient. Continue ICU monitoring. Current Visit: Yes Status: Acute Code(s): K56.609 - UNSP INTESTNL OBST, UNSP TO PARTIAL VERSUS COMPLETE OBST SNOMED Code(s): 71272095
--- NOTE | 2018-11-02 14:13 | P.PN ---
Subjective This is a pleasant 73 years old male with past medical history of asthma, cancer , COPD, diabetes mellitus, GERD, hyperlipidemia, hypertension. He has history of chronic cancers with liver and pulmonary metastasis, status post chemotherapy. Status post sigmoid colon stent. Who presents with abdominal discomfort and CAT scan shows bowel obstruction and the metallic stent site. Patient has been evaluated by surgeon and he underwent sigmoid colectomy with end colostomy, today is post op day #2. Patient is seen today in the intensive care unit. He was confused and agitated and is earlier today and he got pain medication and Haldol and now he is resting comfortably in bed. Chest x-ray: No active cardiopulmonary disease. His leukocytosis improved today and if his 9K which is within normal limits. Hemoglobin 11.2. Platelets within normal. Sodium 135, potassium 4.5, creatinine 0.8. Sugar is controlled. Objective - Vital Signs Vital signs: Vital Signs Temp 98.3 F 11/02/18 12:00 Pulse 99 11/02/18 13:00 Resp 13 11/02/18 13:00 BP 126/68 11/02/18 13:00 Pulse Ox 95 11/02/18 13:00 Intake & Output 11/01/18 11/02/18 11/02/18 18:59 06:59 18:59 Intake Total 1750 1600 625 Output Total 680 1090 205 Balance 1070 510 420 Weight 108.3 kg Intake: IV 1750 1600 625 ACETAMINOPHEN IV (For NPO 100 ) 1,000 mg In Empty Bag 1 bag @ 400 mls/hr IVPB Q6HR [facility] Rx#:[id number] D5-0.45% NaCl with KCl 1500 1500 625 20Meq/l 1,000 ml @ 125 mls/hr IV .Q8H [facility] Rx#: [id number] Piperacillin-Tazobactam 3 100 .375 gm In Sodium Chloride 0.9% 100 ml @ 25 mls/hr IVPB ONCE STA Rx# :[id number] Piperacillin-Tazobactam 3 50 100 .375 gm In Sodium Chloride 0.9% 100 ml @ 25 mls/hr IVPB Q8HR [facility] Rx# :[id number] Output: Urine 480 890 205 Stool 200 Emesis 200 Other: Voiding Method Indwelling Catheter Indwelling Catheter Indwelling Catheter - Exam GENERAL: The patient is alert and oriented x3, not in any acute distress. Well developed, well nourished. HEENT: Pupils are round and equally reacting to light. EOMI. No scleral icterus. No conjunctival pallor. Normocephalic, atraumatic. No pharyngeal erythema. No thyromegaly. CARDIOVASCULAR: S1 and S2 present. No murmurs, rubs, or gallops. PULMONARY: Chest is clear to auscultation, no wheezing or crackles. -ABDOMEN: Soft, nontender, nondistended, normoactive bowel sounds. No palpable organomegaly. Surgical wound, vertical in the lower abdomen midline, with closed ages and tootie in place no purulent discharge or surrounding cellulitis. MUSCULOSKELETAL: No joint swelling or deformity. EXTREMITIES: No cyanosis, clubbing, or pedal edema. NEUROLOGICAL: Gross neurological examination did not reveal any focal deficits. SKIN: No rashes. - Labs CBC & Chem 7: 11/02/18 04:15 11/02/18 04:15 Labs: Abnormal Lab Results - Last 24 Hours (Table) 11/01/18 11/01/18 11/02/18 Range/Units 18:02 23:32 04:15 RBC 3.85 L (4.30-5.90) m/uL Hgb 11.2 L (13.0-17.5) gm/dL Hct 37.5 L (39.0-53.0) % MCHC 29.9 L (31.0-37.0) g/dL RDW 16.6 H (11.5-15.5) % Lymphocytes # 0.7 L (1.0-4.8) k/uL Sodium (137-145) mmol/L Glucose (74-99) mg/dL POC Glucose (mg/dL) 145 H 107 H (75-99) mg/dL Calcium (8.4-10.2) mg/dL 11/02/18 11/02/18 11/02/18 Range/Units 04:15 06:16 12:42 RBC (4.30-5.90) m/uL Hgb (13.0-17.5) gm/dL Hct (39.0-53.0) % MCHC (31.0-37.0) g/dL RDW (11.5-15.5) % Lymphocytes # (1.0-4.8) k/uL Sodium 135 L (137-145) mmol/L Glucose 114 H (74-99) mg/dL POC Glucose (mg/dL) 145 H 122 H (75-99) mg/dL Calcium 8.1 L (8.4-10.2) mg/dL Assessment and Plan Assessment: Intestinal obstructions at colonic stent site status post colectomy with end colostomy. History of colon cancers with hepatic and pulmonary metastasis, status post chemotherapy History of COPD History of diabetes mellitus Essential hypertension Hyperlipidemia History of GERD Plan: This is a pleasant 73 years old male who presents with bowel obstruction. Status post surgical colectomy and colostomy. Surgical and critical care team are following the patient.Labs and medication were reviewed.. Continue same treatment. Continue with symptomatic treatment. Resume home medication. Monitor lytes and vitals. DVT and GI prophylaxis. Further recommendations of the clinical course of the patient DVT prophylaxis: Subcutaneous heparin GI Prophylaxis: Protonix Prognosis is guarded Thank you for consulting us, please feel free to contact us for any further question or clarification
[2018-11-02 18:18] LABS: Glucose,Whole Blood 135 mg/dL (75-99)
[2018-11-02] MEDS ORDERED: ZOLPIDEM 5 MG TAB PO ONE (23:25)
[2018-11-02] MEDS: MELATONIN 3 MG TABLET PO PRN (23:52)
[2018-11-03 00:01] LABS: Glucose,Whole Blood 120 mg/dL (75-99)
[2018-11-03] MEDS: IPRATROPIUM-ALBUTEROL 3 ML NEB INHALATION PRN ×2 (00:08→05:34)
[2018-11-03 05:29] LABS: Anisocytosis Slight; Basophils % (A) 0 %; Eosinophils # (A) 0.1 k/uL (0-0.7); Eosinophils % (A) 2 %; HGB 10.2 gm/dL (13.0-17.5); Hypochromasia Slight; Lymphocytes # (A) 0.5 k/uL (1.0-4.8); Lymphocytes % (A) 9 %; MCV 96.9 fL (80.0-100.0); Mean Platelet Volume 7.4; Monocytes # (A) 0.3 k/uL (0-1.0); Monocytes % (A) 5 %; Neutrophils # (A) 4.8 k/uL (1.3-7.7); Neutrophils % (A) 82 %; Platelet Count 255 k/uL (150-450); RBC 3.41 m/uL (4.30-5.90); RDW 16.6 % (11.5-15.5); WBC 5.9 k/uL (3.8-10.6)
[2018-11-03] MEDS: HYDROmorphone 0.5 MG/0.5 ML SYRINGE IVP PRN ×2 (05:32→13:09)
[2018-11-03] MEDS: INSULIN ASPART 100 UNIT/ML 1 ML 10 ML VIAL SQ SCH ×3 (05:40→18:21)
[2018-11-03 05:42] LABS: Glucose,Whole Blood 178 mg/dL (75-99)
[2018-11-03 05:46] LABS: Anion Gap 6 mmol/L; Blood Urea Nitrogen 11 mg/dL (9-20); Calcium 8.2 mg/dL (8.4-10.2); Carbon Dioxide 22 mmol/L (22-30); Chloride 105 mmol/L (98-107); Glucose 148 mg/dL (74-99); Magnesium 2.1 mg/dL (1.6-2.3); Phosphorus 3.1 mg/dL (2.5-4.5); Potassium 4.7 mmol/L (3.5-5.1); Sodium 133 mmol/L (137-145)
--- NOTE | 2018-11-03 07:13 | XR ---
EXAMINATION TYPE: XR chest 1V portable DATE OF EXAM: 11/03/2018 CLINICAL HISTORY: Difficulty breathing progress study. TECHNIQUE: Single AP portable semiupright view of the chest is obtained. COMPARISON: Chest x-ray from one day earlier and older studies. CT September 08, 2018. FINDINGS: There is stable right internal jugular Mediport catheter. There is chronic parenchymal radha nge with bibasilar opacities. Diminished inspiration is redemonstrated. Cardiac silhouette size is st able and mildly enlarged with atherosclerotic and slightly ectatic thoracic aorta. Multilevel spurrin g in the thoracic spine is redemonstrated. IMPRESSION: Overall stable findings, poor inspiration and mild cardiomegaly with patchy bibasilar a telectasis and/or scarring.
[2018-11-03] MEDS: NYSTATIN 100,000 UNIT/ML SUSP 500,000 UNIT/5 ML CUP PO SCH ×4 (08:09→21:12)
[2018-11-03] MEDS: PIPERACILLIN-TAZOBACTAM 3.375 GM in SODIUM CHLORIDE 0.9% 100 ML IVPB SCH ×2 (08:23→16:16)
[2018-11-03] MEDS: D5-0.45% NACL WITH KCL 20MEQ/L 1,000 ML IV SCH ×2 (08:23→12:36)
[2018-11-03] MEDS: HEPARIN SODIUM,PORCINE 5,000 UNIT/ML 1 ML VIAL SQ SCH ×2 (08:24→16:16)
[2018-11-03] MEDS: PANTOPRAZOLE 40 MG/10 ML VIAL IV SCH (08:24)
[2018-11-03] MEDS: IPRATROPIUM-ALBUTEROL 3 ML NEB INHALATION SCH ×4 (08:37→18:51)
--- NOTE | 2018-11-03 09:47 | P.PN ---
Subjective Progress Note Date: 11/03/18 Principal diagnosis: Colonic obstruction Patient's confusion seems slightly improved. Still seems somewhat agitated today. Only mild abdominal discomfort. Ostomy still functioning. No nausea or vomiting. Tolerating clear liquids. Objective - Vital Signs Vital signs: Vital Signs Temp 97.8 F 11/03/18 08:00 Pulse 102 H 11/03/18 08:53 Resp 11 L 11/03/18 08:00 BP 128/70 11/03/18 08:00 Pulse Ox 96 11/03/18 08:41 Intake & Output 11/02/18 11/03/18 11/03/18 18:59 06:59 18:59 Intake Total 1700 1500 160 Output Total 645 805 Balance 1055 695 160 Weight 108.3 kg Intake: IV 1700 1500 160 D5-0.45% NaCl with KCl 1500 1500 160 20Meq/l 1,000 ml @ 125 mls/hr IV .Q8H [facility] Rx#: [id number] Piperacillin-Tazobactam 3 200 .375 gm In Sodium Chloride 0.9% 100 ml @ 25 mls/hr IVPB Q8HR [facility] Rx# :[id number] Output: Urine 645 605 Stool 200 Other: Voiding Method Indwelling Catheter Indwelling Catheter - Exam Abdomen: Soft, mild distention, incision with small wounds that are clean, ostomy function - Labs CBC & Chem 7: 11/03/18 04:34 11/03/18 04:34 Labs: Abnormal Lab Results - Last 24 Hours (Table) 11/02/18 11/02/18 11/02/18 Range/Units 12:42 18:05 23:49 RBC (4.30-5.90) m/uL Hgb (13.0-17.5) gm/dL Hct (39.0-53.0) % RDW (11.5-15.5) % Lymphocytes # (1.0-4.8) k/uL Sodium (137-145) mmol/L Glucose (74-99) mg/dL POC Glucose (mg/dL) 122 H 135 H 120 H (75-99) mg/dL Calcium (8.4-10.2) mg/dL 11/03/18 11/03/18 11/03/18 Range/Units 04:34 04:34 05:31 RBC 3.41 L (4.30-5.90) m/uL Hgb 10.2 L (13.0-17.5) gm/dL Hct 33.0 L (39.0-53.0) % RDW 16.6 H (11.5-15.5) % Lymphocytes # 0.5 L (1.0-4.8) k/uL Sodium 133 L (137-145) mmol/L Glucose 148 H (74-99) mg/dL POC Glucose (mg/dL) 178 H (75-99) mg/dL Calcium 8.2 L (8.4-10.2) mg/dL Assessment and Plan (1) Colonic obstruction Narrative/Plan: Increase activity levels. Advance diet. Transfer to floor when cleared by cage unloader. Current Visit: Yes Status: Acute Code(s): K56.609 - UNSP INTESTNL OBST, UNSP TO PARTIAL VERSUS COMPLETE OBST SNOMED Code(s): 14752752
--- NOTE | 2018-11-03 10:40 | PN ---
PROGRESS NOTE DATE OF SERVICE: 11/03/2018 This is a 73-year-old male who apparently initially presented with constipation and abdominal pain. He was found to have a partial colonic obstruction and the patient underwent a resection. He is currently postop day #4. He is doing reasonably well. He is currently on nasal O2 of 4 L. He is getting an IV of dextrose with half-normal saline and 20 mEq of potassium chloride at 125 mL an hour. The patient has been having or had been having some agitation and confusion and received Haldol with nice benefit. Anyway, the patient is doing much better. He does have a history of underlying diabetes, gastroesophageal reflux disease, hyperlipidemia, hypertension, COPD, and a remote history of tobacco use. The patient had a exploratory laparotomy with sigmoid colectomy and colostomy. The surgery was done by Dr. Lonnie Esteban. Currently, his vital signs include a temperature which is 97.8, heart rate which is 98, respiratory rate 17, a blood pressure 134/65, mean 88 and a saturation on 4 L of 97%. He appears in no acute distress. He is awake and alert. No respiratory distress. HEENT examination is grossly unremarkable. Mucous membranes are moist. No oral lesions. NECK: Supple. Full range of motion. No adenopathy or thyromegaly. Cardiovascular examination reveals regular rhythm and rate. S1, S2 normal. He is mildly tachycardic. Lungs reveal mostly clear breath sounds. A few scattered rhonchi. No wheezes or crackles. Abdomen is soft. No bowel sounds are heard. Colostomy is noted. Extremities are intact. No cyanosis, clubbing, or edema. Skin without rash. Neurologic examination is brief, but nonfocal. He is getting about 1250 mL on his incentive spirometer. Microbiologic studies are negative. LABS: Labs are reviewed. White count 5.9, hemoglobin 10.2, hematocrit 33.0, platelet count 255,000. Sodium 133. Potassium, chloride, CO2 all normal. BUN and creatinine were 11 and 0.76. Anion gap is normal. Microbiologic studies are thus far are all negative. Medications are reviewed. ASSESSMENT: 1. Postoperative day #4, status post exploratory laparotomy with sigmoid colectomy and end colostomy secondary to partial colonic obstruction at the metallic stent graft site of known neoplasm. 2. 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 The patient is status post placement of a metallic stent in the sigmoid colon. 3. Chronic obstructive pulmonary disease, stable. 4. Diabetes mellitus. 5. Benign essential hypertension. 6. Hyperlipidemia. 7. History of gastroesophageal reflux disease. 8. Mental status changes with confusion, agitation, delirium, better on Haldol. PLAN: The patient will continue with incentive spirometer q.1 hour while awake. Will recommend deep breathing coughing and clearing of secretions. We also recommend that the patient continue to stay here in the ICU for another day. The patient will continue on the Zosyn for now. Microbiologic studies are negative. We will use Haldol p.r.n. Overall, his agitation and confusion is much improved. No additional recommendations are made. MMODL / IJN: [id number] /
[2018-11-03 12:13] LABS: Glucose,Whole Blood 138 mg/dL (75-99)
--- NOTE | 2018-11-03 13:03 | P.PN ---
Subjective 73 years old male with past medical history of asthma, cancer, COPD, diabetes mellitus, GERD, hyperlipidemia, hypertension. He has history of chronic cancers with liver and pulmonary metastasis, status post chemotherapy. Status post sigmoid colon stent. Who presents with abdominal discomfort and CAT scan shows bowel obstruction and the metallic stent site. Patient has been evaluated by surgeon and he underwent sigmoid colectomy with end colostomy, today is post op day #2. Patient is seen today in the intensive care unit. He was confused and agitated and is earlier today and he got pain medication and Haldol and now he is resting comfortably in bed. Chest x-ray: No active cardiopulmonary disease. His leukocytosis improved today and if his 9K which is within normal limits. Hemoglobin 11.2. Platelets within normal. Sodium 135 , potassium 4.5, creatinine 0.8. Sugar is controlled. 11/03/2018 Patient is doing much better except for some confusional episodes because of Dilaudid unfortunately we don't have any other choice except for Dilaudid for his pain morphine is not helping him and patient is not using much oral. Patient does have good output into the colostomy. Patient is a would have at all. Patient is alert oriented 3 now not agitated. Patient is bit mildly hyponatremic because of which I'm changing her fluid to D5 normal saline with the potassium Objective - Vital Signs Vital signs: Vital Signs Temp 97.8 F 11/03/18 08:00 Pulse 100 11/03/18 12:25 Resp 20 11/03/18 11:00 BP 138/75 11/03/18 11:00 Pulse Ox 96 11/03/18 11:00 Intake & Output 11/02/18 11/03/18 11/03/18 18:59 06:59 18:59 Intake Total 1700 1500 635 Output Total 645 805 300 Balance 1055 695 335 Weight 108.3 kg Intake: IV 1700 1500 635 D5-0.45% NaCl with KCl 1500 1500 535 20Meq/l 1,000 ml @ 125 mls/hr IV .Q8H [facility] Rx#: [id number] Piperacillin-Tazobactam 3 200 100 .375 gm In Sodium Chloride 0.9% 100 ml @ 25 mls/hr IVPB Q8HR [facility] Rx# :[id number] Output: Urine 645 605 300 Stool 200 Other: Voiding Method Indwelling Catheter Indwelling Catheter Indwelling Catheter - Exam GENERAL: The patient is alert and oriented x3, not in any acute distress. Well developed, well nourished. HEENT: Pupils are round and equally reacting to light. EOMI. No scleral icterus. No conjunctival pallor. Normocephalic, atraumatic. No pharyngeal erythema. No thyromegaly. CARDIOVASCULAR: S1 and S2 present. No murmurs, rubs, or gallops. PULMONARY: Chest is clear to auscultation, no wheezing or crackles. -ABDOMEN: Soft, nontender, nondistended, normoactive bowel sounds. No palpable organomegaly. Surgical wound, vertical in the lower abdomen midline, with closed ages and tootie in place no purulent discharge or surrounding cellulitis. MUSCULOSKELETAL: No joint swelling or deformity. EXTREMITIES: No cyanosis, clubbing, or pedal edema. NEUROLOGICAL: Gross neurological examination did not reveal any focal deficits. SKIN: No rashes. - Labs CBC & Chem 7: 11/03/18 04:34 11/03/18 04:34 Labs: Abnormal Lab Results - Last 24 Hours (Table) 11/02/18 11/02/18 11/03/18 Range/Units 18:05 23:49 04:34 RBC 3.41 L (4.30-5.90) m/uL Hgb 10.2 L (13.0-17.5) gm/dL Hct 33.0 L (39.0-53.0) % RDW 16.6 H (11.5-15.5) % Lymphocytes # 0.5 L (1.0-4.8) k/uL Sodium (137-145) mmol/L Glucose (74-99) mg/dL POC Glucose (mg/dL) 135 H 120 H (75-99) mg/dL Calcium (8.4-10.2) mg/dL 11/03/18 11/03/18 11/03/18 Range/Units 04:34 05:31 12:01 RBC (4.30-5.90) m/uL Hgb (13.0-17.5) gm/dL Hct (39.0-53.0) % RDW (11.5-15.5) % Lymphocytes # (1.0-4.8) k/uL Sodium 133 L (137-145) mmol/L Glucose 148 H (74-99) mg/dL POC Glucose (mg/dL) 178 H 138 H (75-99) mg/dL Calcium 8.2 L (8.4-10.2) mg/dL Assessment and Plan Plan: Intestinal obstructions at colonic stent site status post colectomy with end colostomy. History of colon cancers with hepatic and pulmonary metastasis, status post chemotherapy History of COPD History of diabetes mellitus Essential hypertension Hyperlipidemia History of GERD -Mild hyponatremia secondary to D5 half-normal saline which she is being switched as mentioned above Plan: Plan is as mentioned in the interval history. DVT prophylaxis: Subcutaneous heparin GI Prophylaxis: Protonix
[2018-11-03] MEDS: D5-0.9% NACL WITH KCL 20 MEQ/L 1,000 ML IV SCH (13:09)
[2018-11-03 18:25] LABS: Glucose,Whole Blood 136 mg/dL (75-99)
[2018-11-03] MEDS: MELATONIN 3 MG TABLET PO PRN (21:47)
[2018-11-04 00:01] LABS: Glucose,Whole Blood 156 mg/dL (75-99)
[2018-11-04] MEDS: IPRATROPIUM-ALBUTEROL 3 ML NEB INHALATION PRN (00:27)
[2018-11-04] MEDS: HEPARIN SODIUM,PORCINE 5,000 UNIT/ML 1 ML VIAL SQ SCH ×3 (00:36→15:00)
[2018-11-04] MEDS: HYDROmorphone 0.5 MG/0.5 ML SYRINGE IVP PRN ×4 (00:36→18:56)
[2018-11-04] MEDS: INSULIN ASPART 100 UNIT/ML 1 ML 10 ML VIAL SQ SCH ×4 (00:36→18:30)
[2018-11-04] MEDS: D5-0.9% NACL WITH KCL 20 MEQ/L 1,000 ML IV SCH ×2 (00:42→12:47)
[2018-11-04] MEDS: PIPERACILLIN-TAZOBACTAM 3.375 GM in SODIUM CHLORIDE 0.9% 100 ML IVPB SCH ×3 (00:47→14:57)
[2018-11-04 05:11] LABS: Anisocytosis Slight; Basophils % (A) 0 %; Eosinophils # (A) 0.2 k/uL (0-0.7); Eosinophils % (A) 4 %; HCT 33.4 % (39.0-53.0); HGB 10.2 gm/dL (13.0-17.5); Hypochromasia Slight; Lymphocytes # (A) 0.7 k/uL (1.0-4.8); Lymphocytes % (A) 14 %; MCH 29.5 pg (25.0-35.0); MCHC 30.4 g/dL (31.0-37.0); Monocytes # (A) 0.3 k/uL (0-1.0); Monocytes % (A) 6 %; Neutrophils # (A) 3.6 k/uL (1.3-7.7); Neutrophils % (A) 71 %; Platelet Count 266 k/uL (150-450); RBC 3.45 m/uL (4.30-5.90); RDW 16.4 % (11.5-15.5); WBC 5.1 k/uL (3.8-10.6)
[2018-11-04 05:24] LABS: Anion Gap 6 mmol/L; Blood Urea Nitrogen 7 mg/dL (9-20); Calcium 8.4 mg/dL (8.4-10.2); Carbon Dioxide 25 mmol/L (22-30); Chloride 106 mmol/L (98-107); Glucose 137 mg/dL (74-99); Phosphorus 3.6 mg/dL (2.5-4.5); Potassium 4.7 mmol/L (3.5-5.1); Sodium 137 mmol/L (137-145)
[2018-11-04 06:19] LABS: Glucose,Whole Blood 144 mg/dL (75-99)
[2018-11-04] MEDS: IPRATROPIUM-ALBUTEROL 3 ML NEB INHALATION SCH ×4 (07:07→21:21)
--- NOTE | 2018-11-04 07:51 | XR ---
EXAMINATION TYPE: XR chest 1V portable DATE OF EXAM: 11/04/2018 COMPARISON: Prior chest x-ray 11/03/2018 HISTORY: Shortness of breath TECHNIQUE: Single frontal view of the chest is obtained. FINDINGS: Right-sided Port-A-Cath is stable. Minimal patchy basilar atelectatic changes suspected. C ardiomediastinal silhouette, pulmonary vascularity and maria g are unchanged. No evident pneumothorax or sizable effusion. Question 1 cm nodular density in the right upper lobe. IMPRESSION: Possible underlying metastatic disease. Possible basilar atelectasis.
[2018-11-04] MEDS: PANTOPRAZOLE 40 MG/10 ML VIAL IV SCH (08:14)
[2018-11-04] MEDS: NYSTATIN 100,000 UNIT/ML SUSP 500,000 UNIT/5 ML CUP PO SCH ×3 (08:30→18:30)
[2018-11-04 12:19] LABS: Glucose,Whole Blood 142 mg/dL (75-99)
--- NOTE | 2018-11-04 12:21 | PN ---
PROGRESS NOTE DATE OF SERVICE: 11/04/2018. HISTORY: A 73-year-old male who presented with constipation and abdominal pain. He was found to have partial colonic obstruction. The patient is postop day #5 status post exploratory laparotomy with sigmoid colectomy and end colostomy secondary to partial colonic obstruction. He has a history of invasive adenocarcinoma of the colon with liver and lung metastasis. This was diagnosed back in August 2017. He is status post 4 rounds of chemotherapy. The patient is doing much better. He is on O2 at 3 L by nasal cannula. He is getting an IV of D5 0.45 with 20 potassium at 100 mL/ hour to be turned down to 50 mL an hour. The patient can be transferred to a general medical floor. The surgery was done by Dr. Lonnie Esteban. Current vital signs are reviewed. Temperature is 98.4, heart rate 100, respiratory rate 19, blood pressure 143/78, mean 99, 3 L saturation 94%. Appears in no acute distress. PHYSICAL EXAMINATION: HEENT examination is grossly unremarkable. Mucous membranes are moist. No oral lesions. Neck is supple. Full range of motion. No adenopathy or thyromegaly. Cardiovascular examination reveals a regular rhythm and rate. Heart rate about 95 beats per minute. S1, S2 normal. There is no murmur. Lungs reveal mostly clear breath sounds. A few scattered rhonchi. No wheezes or crackles. Abdomen is soft. No bowel sounds are noted. Colostomy in place. Extremities are intact. No cyanosis, clubbing, or edema. Skin without rash. Neurologic examination is brief but nonfocal. He remains on O2 at 3 L. He is getting an IV of D5 at 0.45 with 20 potassium at 100 mL/ hour to be turned down to 50 mL an hour. LABS: Reviewed. White count 5.1, hemoglobin 7.2, hematocrit 33.4, platelet count normal. Electrolytes look pretty normal. BUN and creatinine were 7 and 0.65. Microbiologic studies are negative MEDICATIONS: Reviewed. ASSESSMENT: 1. Postoperative day #5, status post exploratory laparotomy with sigmoid colectomy and colostomy secondary to partial colonic obstruction at the metallic stent graft site. 2. 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 The patient is also status post placement of a metallic stent in the sigmoid colon. 3. Chronic obstructive pulmonary disease, stable. 4. Diabetes mellitus. 5. Benign essential hypertension. 6. Hyperlipidemia. 7. History of gastroesophageal reflux disease. 8. Mental status changes, confusion, agitation and delirium, much improved. PLAN: The patient is doing well. The patient will continue on the incentive spirometer. We recommend deep breathing, coughing and clearing of secretions. Clinically, he is much improved. Hemodynamics are stable. There is some bibasilar atelectasis appreciated. No additional recommendations are made. Prognosis is guarded. Medications are reviewed. The patient could be transferred to the general medical floor. MMODL / IJN: [id number] / MTDHerve
--- NOTE | 2018-11-04 13:07 | P.PN ---
Subjective 73 years old male with past medical history of asthma, cancer, COPD, diabetes mellitus, GERD, hyperlipidemia, hypertension. He has history of chronic cancers with liver and pulmonary metastasis, status post chemotherapy. Status post sigmoid colon stent. Who presents with abdominal discomfort and CAT scan shows bowel obstruction and the metallic stent site. Patient has been evaluated by surgeon and he underwent sigmoid colectomy with end colostomy, today is post op day #2. Patient is seen today in the intensive care unit. He was confused and agitated and is earlier today and he got pain medication and Haldol and now he is resting comfortably in bed. Chest x-ray: No active cardiopulmonary disease. His leukocytosis improved today and if his 9K which is within normal limits. Hemoglobin 11.2. Platelets within normal. Sodium 135 , potassium 4.5, creatinine 0.8. Sugar is controlled. 11/03/2018 Patient is doing much better except for some confusional episodes because of Dilaudid unfortunately we don't have any other choice except for Dilaudid for his pain morphine is not helping him and patient is not using much oral. Patient does have good output into the colostomy. Patient is a would have at all. Patient is alert oriented 3 now not agitated. Patient is bit mildly hyponatremic because of which I'm changing her fluid to D5 normal saline with the potassium 11/04/2018 Patient is clinically doing well but tachycardic will obtain TSH. Patient is being transferred out of ICU to medical surgical floor Constitutional: Denied any fatigue denied any fever. Cardio vascular: denied any chest pain, palpitations Gastrointestinal denied any nausea vomiting Pulmonary: Denied any shortness of breath cough Neurologic denied any new focal deficits All inpatient medications were reviewed and appropriate changes in these medications as dictated in the interval history and assessment and plan. Objective - Vital Signs Vital signs: Vital Signs Temp 98.2 F 11/04/18 12:00 Pulse 111 H 11/04/18 12:00 Resp 15 11/04/18 12:00 BP 145/83 11/04/18 12:00 Pulse Ox 95 11/04/18 12:00 Intake & Output 11/03/18 11/04/18 11/04/18 18:59 06:59 18:59 Intake Total 1560 1200 640 Output Total 19890 1170 Balance -430 -580 -530 Weight 108.6 kg Intake: IV 1560 1200 400 D5-0.45% NaCl with KCl 660 20Meq/l 1,000 ml @ 125 mls/hr IV .Q8H [facility] Rx#: [id number] D5-0.9% NaCl with KCl 20 700 1100 300 Meq/l 1,000 ml @ 50 mls/ hr IV .Q20H [facility] Rx#: [id number] Piperacillin-Tazobactam 3 200 100 100 .375 gm In Sodium Chloride 0.9% 100 ml @ 25 mls/hr IVPB Q8HR [facility] Rx# :[id number] Oral 240 Output: Urine 1790 1630 1170 Stool 200 150 Other: Voiding Method Indwelling Catheter Indwelling Catheter Indwelling Catheter - Exam GENERAL: The patient is alert and oriented x3, not in any acute distress. Well developed, well nourished. HEENT: Pupils are round and equally reacting to light. EOMI. No scleral icterus. No conjunctival pallor. Normocephalic, atraumatic. No pharyngeal erythema. No thyromegaly. CARDIOVASCULAR: S1 and S2 present. No murmurs, rubs, or gallops. PULMONARY: Chest is clear to auscultation, no wheezing or crackles. -ABDOMEN: Soft, nontender, nondistended, normoactive bowel sounds. No palpable organomegaly. Surgical wound, vertical in the lower abdomen midline, with closed ages and tootie in place no purulent discharge or surrounding cellulitis. MUSCULOSKELETAL: No joint swelling or deformity. EXTREMITIES: No cyanosis, clubbing, or pedal edema. NEUROLOGICAL: Gross neurological examination did not reveal any focal deficits. SKIN: No rashes. - Labs CBC & Chem 7: 11/04/18 04:34 11/04/18 04:34 Labs: Abnormal Lab Results - Last 24 Hours (Table) 11/03/18 11/03/18 11/04/18 Range/Units 18:14 23:49 04:34 RBC 3.45 L (4.30-5.90) m/uL Hgb 10.2 L (13.0-17.5) gm/dL Hct 33.4 L (39.0-53.0) % MCHC 30.4 L (31.0-37.0) g/dL RDW 16.4 H (11.5-15.5) % Lymphocytes # 0.7 L (1.0-4.8) k/uL BUN (9-20) mg/dL Creatinine (0.66-1.25) mg/dL Glucose (74-99) mg/dL POC Glucose (mg/dL) 136 H 156 H (75-99) mg/dL 11/04/18 11/04/18 11/04/18 Range/Units 04:34 06:08 12:04 RBC (4.30-5.90) m/uL Hgb (13.0-17.5) gm/dL Hct (39.0-53.0) % MCHC (31.0-37.0) g/dL RDW (11.5-15.5) % Lymphocytes # (1.0-4.8) k/uL BUN 7 L (9-20) mg/dL Creatinine 0.65 L (0.66-1.25) mg/dL Glucose 137 H (74-99) mg/dL POC Glucose (mg/dL) 144 H 142 H (75-99) mg/dL Assessment and Plan Plan: Intestinal obstructions at colonic stent site status post colectomy with end colostomy. Patient is on Zosyn at this time History of colon cancers with hepatic and pulmonary metastasis, status post chemotherapy History of COPD History of diabetes mellitus Essential hypertension Hyperlipidemia History of GERD -Mild hyponatremia secondary to D5 half-normal saline which she is being switched as mentioned above FN tachycardia will obtain TSH level. Plan: Plan is as mentioned in the interval history. DVT prophylaxis: Subcutaneous heparin GI Prophylaxis: Protonix
--- NOTE | 2018-11-04 13:10 | P.PN ---
Subjective Progress Note Date: 11/04/18 Principal diagnosis: Colonic obstruction Patient doing well today. Minimal pain. He states he feels better. Ostomy functioning. Less confused. White blood cell count normal. Objective - Vital Signs Vital signs: Vital Signs Temp 98.2 F 11/04/18 12:00 Pulse 111 H 11/04/18 12:00 Resp 15 11/04/18 12:00 BP 145/83 11/04/18 12:00 Pulse Ox 95 11/04/18 12:00 Intake & Output 11/03/18 11/04/18 11/04/18 18:59 06:59 18:59 Intake Total 1560 1200 640 Output Total 1989 178 1170 Balance -430 -580 -530 Weight 108.6 kg Intake: IV 1560 1200 400 D5-0.45% NaCl with KCl 660 20Meq/l 1,000 ml @ 125 mls/hr IV .Q8H [facility] Rx#: [id number] D5-0.9% NaCl with KCl 20 700 1100 300 Meq/l 1,000 ml @ 50 mls/ hr IV .Q20H [facility]ACE[facility] Rx#: [id number] Piperacillin-Tazobactam 3 200 100 100 .375 gm In Sodium Chloride 0.9% 100 ml @ 25 mls/hr IVPB Q8HR [facility] Rx# :[id number] Oral 240 Output: Urine 1790 1630 1170 Stool 200 150 Other: Voiding Method Indwelling Catheter Indwelling Catheter Indwelling Catheter - Exam Abdomen: Soft, mild distention, incision clean and dry, ostomy functioning - Labs CBC & Chem 7: 11/04/18 04:34 11/04/18 04:34 Labs: Abnormal Lab Results - Last 24 Hours (Table) 11/03/18 11/03/18 11/04/18 Range/Units 18:14 23:49 04:34 RBC 3.45 L (4.30-5.90) m/uL Hgb 10.2 L (13.0-17.5) gm/dL Hct 33.4 L (39.0-53.0) % MCHC 30.4 L (31.0-37.0) g/dL RDW 16.4 H (11.5-15.5) % Lymphocytes # 0.7 L (1.0-4.8) k/uL BUN (9-20) mg/dL Creatinine (0.66-1.25) mg/dL Glucose (74-99) mg/dL POC Glucose (mg/dL) 136 H 156 H (75-99) mg/dL 11/04/18 11/04/18 11/04/18 Range/Units 04:34 06:08 12:04 RBC (4.30-5.90) m/uL Hgb (13.0-17.5) gm/dL Hct (39.0-53.0) % MCHC (31.0-37.0) g/dL RDW (11.5-15.5) % Lymphocytes # (1.0-4.8) k/uL BUN 7 L (9-20) mg/dL Creatinine 0.65 L (0.66-1.25) mg/dL Glucose 137 H (74-99) mg/dL POC Glucose (mg/dL) 144 H 142 H (75-99) mg/dL Assessment and Plan (1) Colonic obstruction Narrative/Plan: Transurethral floor per rn case mgr. Increase diet. Increase activity. Current Visit: Yes Status: Acute Code(s): K56.609 - UNSP INTESTNL OBST, UNSP TO PARTIAL VERSUS COMPLETE OBST SNOMED Code(s): 71586391
[2018-11-04 18:29] LABS: Glucose,Whole Blood 132 mg/dL (75-99)
[2018-11-04] MEDS: MELATONIN 3 MG TABLET PO PRN (22:07)
[2018-11-05] MEDS: NYSTATIN 100,000 UNIT/ML SUSP 500,000 UNIT/5 ML CUP PO SCH ×5 (00:06→20:59)
[2018-11-05] MEDS: HYDROmorphone 0.5 MG/0.5 ML SYRINGE IVP PRN ×4 (00:12→21:08)
[2018-11-05] MEDS: PIPERACILLIN-TAZOBACTAM 3.375 GM in SODIUM CHLORIDE 0.9% 100 ML IVPB SCH ×3 (00:22→15:10)
[2018-11-05] MEDS: HEPARIN SODIUM,PORCINE 5,000 UNIT/ML 1 ML VIAL SQ SCH ×3 (00:31→15:10)
[2018-11-05] MEDS: INSULIN ASPART 100 UNIT/ML 1 ML 10 ML VIAL SQ SCH ×4 (00:32→17:31)
[2018-11-05 00:33] LABS: Glucose,Whole Blood 123 mg/dL (75-99)
[2018-11-05] MEDS: IPRATROPIUM-ALBUTEROL 3 ML NEB INHALATION PRN (03:15)
[2018-11-05 06:23] LABS: Glucose,Whole Blood 132 mg/dL (75-99)
[2018-11-05] MEDS: D5-0.9% NACL WITH KCL 20 MEQ/L 1,000 ML IV SCH (06:24)
[2018-11-05] MEDS: PANTOPRAZOLE 40 MG/10 ML VIAL IV SCH (08:03)
[2018-11-05] MEDS: IPRATROPIUM-ALBUTEROL 3 ML NEB INHALATION SCH ×4 (08:44→19:48)
[2018-11-05 12:09] LABS: Glucose,Whole Blood 133 mg/dL (75-99)
--- NOTE | 2018-11-05 12:40 | PN ---
PROGRESS NOTE DATE OF SERVICE: 11/05/2018. This is a 73-year-old male that was admitted way back on October 30. He came with constipation, abdominal pain. He is postop day #6 status post exploratory laparotomy with sigmoid colectomy and end colostomy secondary to partial colonic obstruction. The patient does have a history of invasive adenocarcinoma of the colon. He has liver and lung METS. Yesterday, he was moved out of the ICU to the general medical floor. He is doing relatively well. He remains on oxygen therapy. Denies any shortness of breath. Feels well. PHYSICAL EXAMINATION: Currently, the patient's vital signs include temperature 98.2, heart rate is 116, respiratory rate is 18, blood pressure 149/89, mean 109. 4 L saturation 95%. Appears in no acute distress. HEENT examination is grossly unremarkable. Mucous membranes are moist. Nasal O2 in place. Neck is supple. Full range of motion. No adenopathy or thyromegaly. Neck veins are flat. Cardiovascular examination reveals regular rhythm and rate. S1, S2 normal. There is no S3, S4, or murmur. Lungs reveal mostly clear breath sounds. No wheezes or rhonchi. No crackles. Abdomen is soft. Extremities are intact. No cyanosis, clubbing, or edema. Skin without rash. Neurologic examination is brief but nonfocal. Microbiology is negative. LABS: Reviewed. The patient had nothing today. X-RAYS: Are reviewed. ASSESSMENT: 1. Postoperative day #6, status post exploratory laparotomy with sigmoid colectomy and colostomy secondary to partial colonic obstruction at the metallic stent graft site. 2. Invasive adenocarcinoma of the colon, liver and lung metastasis, diagnosed in August 2017, status post 4 rounds of chemotherapy. The patient also had a metallic stent placed in the sigmoid colon. 3. Chronic obstructive pulmonary disease, stable. 4. Diabetes mellitus. 5. Benign essential hypertension. 6. Hyperlipidemia. 7. History of gastroesophageal reflux disease, mental status changes including confusion, agitation and delirium, all much improved. PLAN: The patient is doing well. From our perspective, the patient could be discharged. Will likely end up going to rehab facility. The patient is somewhat weak. Respiratory status is stable. Microbiology is negative. No labs today. The patient left the ICU yesterday. MMODL / IJN: [id number] /
[2018-11-05 14:56] VITALS: BMI 36.3
--- NOTE | 2018-11-05 16:15 | P.PN ---
Subjective 73 years old male with past medical history of asthma, cancer, COPD, diabetes mellitus, GERD, hyperlipidemia, hypertension. He has history of chronic cancers with liver and pulmonary metastasis, status post chemotherapy. Status post sigmoid colon stent. Who presents with abdominal discomfort and CAT scan shows bowel obstruction and the metallic stent site. Patient has been evaluated by surgeon and he underwent sigmoid colectomy with end colostomy, today is post op day #2. Patient is seen today in the intensive care unit. He was confused and agitated and is earlier today and he got pain medication and Haldol and now he is resting comfortably in bed. Chest x-ray: No active cardiopulmonary disease. His leukocytosis improved today and if his 9K which is within normal limits. Hemoglobin 11.2. Platelets within normal. Sodium 135 , potassium 4.5, creatinine 0.8. Sugar is controlled. 11/03/2018 Patient is doing much better except for some confusional episodes because of Dilaudid unfortunately we don't have any other choice except for Dilaudid for his pain morphine is not helping him and patient is not using much oral. Patient does have good output into the colostomy. Patient is a would have at all. Patient is alert oriented 3 now not agitated. Patient is bit mildly hyponatremic because of which I'm changing her fluid to D5 normal saline with the potassium 11/04/2018 Patient is clinically doing well but tachycardic will obtain TSH. Patient is being transferred out of ICU to medical surgical floor. 11/05/2018 Patient remains lethargic remains tachycardic, patient's a TSH is within normal limits we'll rule out pulmonary embolism if that is negative patient was started on beta sondra for tachycardia patient's colostomy need to be fixed. Constitutional: Denied any fatigue denied any fever. Cardio vascular: denied any chest pain, palpitations Gastrointestinal denied any nausea vomiting Pulmonary: Denied any shortness of breath cough Neurologic denied any new focal deficits All inpatient medications were reviewed and appropriate changes in these medications as dictated in the interval history and assessment and plan. Objective - Vital Signs Vital signs: Vital Signs Temp 98.2 F 11/05/18 06:44 Pulse 110 H 11/05/18 15:42 Resp 20 11/05/18 06:44 BP 149/89 11/05/18 06:44 Pulse Ox 95 11/05/18 06:44 Intake & Output 1211/05/18 11/05/18 18:59 06:59 18:59 Intake Total 940 200 Output Total 1370 700 Balance -430 -500 Weight 108.6 kg 108.6 kg Intake: IV 700 D5-0.9% NaCl with KCl 20 500 Meq/l 1,000 ml @ 50 mls/ hr IV .Q20H [facility] Rx#: [id number] Piperacillin-Tazobactam 3 200 .375 gm In Sodium Chloride 0.9% 100 ml @ 25 mls/hr IVPB Q8HR [facility] Rx# :[id number] Oral 240 200 Output: Urine 1370 700 Other: Voiding Method Indwelling Catheter Indwelling Catheter Indwelling Catheter - Exam GENERAL: The patient is alert and oriented x3, not in any acute distress. Well developed, well nourished. HEENT: Pupils are round and equally reacting to light. EOMI. No scleral icterus. No conjunctival pallor. Normocephalic, atraumatic. No pharyngeal erythema. No thyromegaly. CARDIOVASCULAR: S1 and S2 present. No murmurs, rubs, or gallops. Tachycardic PULMONARY: Chest is clear to auscultation, no wheezing or crackles. -ABDOMEN: Soft, nontender, nondistended, normoactive bowel sounds. No palpable organomegaly. Surgical wound, vertical in the lower abdomen midline, with closed ages and tootie in place no purulent discharge or surrounding cellulitis. MUSCULOSKELETAL: No joint swelling or deformity. EXTREMITIES: No cyanosis, clubbing, or pedal edema. NEUROLOGICAL: Gross neurological examination did not reveal any focal deficits. SKIN: No rashes. - Labs CBC & Chem 7: 11/04/18 04:34 11/04/18 04:34 Labs: Abnormal Lab Results - Last 24 Hours (Table) 11/04/18 11/05/18 11/05/18 Range/Units 18:22 00:28 06:21 POC Glucose (mg/dL) 132 H 123 H 132 H (75-99) mg/dL 11/05/18 Range/Units 12:06 POC Glucose (mg/dL) 133 H (75-99) mg/dL Assessment and Plan Plan: Intestinal obstructions at colonic stent site status post colectomy with end colostomy. Patient is on Zosyn at this time History of colon cancers with hepatic and pulmonary metastasis, status post chemotherapy History of COPD History of diabetes mellitus Essential hypertension Hyperlipidemia History of GERD -Mild hyponatremia secondary to D5 half-normal saline which she is being switched as mentioned above And new tachycardia TSH within normal limits will rule out pulmonary embolism Plan: Plan is as mentioned in the interval history. DVT prophylaxis: Subcutaneous heparin GI Prophylaxis: Protonix
[2018-11-05 17:25] LABS: Glucose,Whole Blood 131 mg/dL (75-99)
--- NOTE | 2018-11-05 17:39 | CT ---
EXAMINATION TYPE: CT chest angio for PE DATE OF EXAM: 11/05/2018 COMPARISON: None HISTORY: SOB CT DLP: 475.3 mGycm Automated exposure control for dose reduction was used. CONTRAST: CT Chest for pulmonary embolism performed with with IV Contrast, patient injected with 100 mL of Isov ue 370. FINDINGS: There is some patchy infiltrate and atelectasis in both lower lobes and more on the right side. There are small bilateral pleural effusions. There is abdominal ascites. There is a 2 cm calcification in the right upper quadrant that could be gallstone impacted in the gallbladder neck. Heart is slightly enlarged. There is normal contrast opacification of the pulmonary arteries. I see n o filling defects. There is no mediastinal adenopathy. There are no hilar masses. There is 2 cm area of parenchymal calcification in the superior posterior right lobe of the liver that could be hemangio ma. Gallbladder is dilated up to 4.3 cm. IMPRESSION: No evidence of pulmonary embolism. Bilateral lower lobe infiltrates and atelectasis and pleural effus ions. Pulmonary abnormality is new compared to recent CT scan of 10/30/2018. Ascites appears increase d compared to last exam. Large calcified gallstone at the gallbladder neck. There is probably cholecy stitis. Gallbladder unchanged.
--- NOTE | 2018-11-05 20:18 | P.PN ---
Subjective Progress Note Date: 11/05/18 Principal diagnosis: Colonic obstruction Patient without new complaints. Remains mildly tachycardic today. No labs from today. Patient is tolerating his full liquids. Seen by the ostomy nurse today. Increased mucocutaneous separation noted particularly inferiorly. Stomal on some slightly below skin level Objective - Vital Signs Vital signs: Vital Signs Temp 97.4 F L 11/05/18 14:25 Pulse 112 H 11/05/18 20:00 Resp 20 11/05/18 14:25 BP 124/80 11/05/18 14:25 Pulse Ox 95 11/05/18 14:25 Intake & Output 11/05/18 11/05/18 11/06/18 06:59 18:59 06:59 Intake Total 200 Output Total 700 550 Balance -500 -550 Weight 108.6 kg Intake: Oral 200 Output: Urine 700 550 Other: Voiding Method Indwelling Catheter Indwelling Catheter # Voids 0 # Bowel Movements 1 - Exam Abdomen: Soft, minimal distention, no tenderness, midline incision clean, kathryn in place, ostomy with mucocutaneous separation, stoma viable however, no evidence of subcutaneous spillage of stool at this time. - Labs CBC & Chem 7: 11/04/18 04:34 11/04/18 04:34 Labs: Abnormal Lab Results - Last 24 Hours (Table) 11/05/18 11/05/18 11/05/18 Range/Units 00:28 06:21 12:06 POC Glucose (mg/dL) 123 H 132 H 133 H (75-99) mg/dL 11/05/18 Range/Units 17:22 POC Glucose (mg/dL) 131 H (75-99) mg/dL Assessment and Plan (1) Colonic obstruction Narrative/Plan: Continue local care around the ostomy itself. Unfortunately the patient's bowel at the time of surgery was massively distended requiring a larger skin opening. Now that the bowel his return to a more normal size it is somewhat. This should granulate in over time. We'll watch carefully. Current Visit: Yes Status: Acute Code(s): K56.609 - UNSP INTESTNL OBST, UNSP TO PARTIAL VERSUS COMPLETE OBST SNOMED Code(s): 45699140
[2018-11-05] MEDS: MELATONIN 3 MG TABLET PO PRN (21:08)
[2018-11-06] MEDS: PIPERACILLIN-TAZOBACTAM 3.375 GM in SODIUM CHLORIDE 0.9% 100 ML IVPB SCH ×3 (00:39→15:25)
[2018-11-06] MEDS: HEPARIN SODIUM,PORCINE 5,000 UNIT/ML 1 ML VIAL SQ SCH ×3 (00:56→15:25)
[2018-11-06 00:57] LABS: Glucose,Whole Blood 137 mg/dL (75-99)
[2018-11-06] MEDS: INSULIN ASPART 100 UNIT/ML 1 ML 10 ML VIAL SQ SCH ×4 (00:59→17:36)
[2018-11-06] MEDS: D5-0.9% NACL WITH KCL 20 MEQ/L 1,000 ML IV SCH ×2 (01:00→21:07)
[2018-11-06] MEDS: HYDROmorphone 0.5 MG/0.5 ML SYRINGE IVP PRN ×4 (01:23→21:50)
[2018-11-06 06:26] LABS: Glucose,Whole Blood 129 mg/dL (75-99)
[2018-11-06] MEDS: NYSTATIN 100,000 UNIT/ML SUSP 500,000 UNIT/5 ML CUP PO SCH ×4 (08:49→21:07)
[2018-11-06] MEDS: PANTOPRAZOLE 40 MG/10 ML VIAL IV SCH (08:49)
[2018-11-06] MEDS: IPRATROPIUM-ALBUTEROL 3 ML NEB INHALATION SCH ×4 (09:13→20:59)
[2018-11-06 09:59] LABS: Anisocytosis Slight; Basophils % (A) 0 %; Eosinophils # (A) 0.2 k/uL (0-0.7); Eosinophils % (A) 3 %; HCT 32.8 % (39.0-53.0); HGB 10.5 gm/dL (13.0-17.5); Hypochromasia Slight; Lymphocytes # (A) 0.9 k/uL (1.0-4.8); Lymphocytes % (A) 14 %; MCH 30.5 pg (25.0-35.0); MCHC 31.9 g/dL (31.0-37.0); MCV 95.6 fL (80.0-100.0); Mean Platelet Volume 6.9; Monocytes # (A) 0.4 k/uL (0-1.0); Monocytes % (A) 6 %; Neutrophils % (A) 75 %; Platelet Count 300 k/uL (150-450); RBC 3.43 m/uL (4.30-5.90); RDW 16.3 % (11.5-15.5); WBC 6.7 k/uL (3.8-10.6)
[2018-11-06 10:12] LABS: Anion Gap 6 mmol/L; Blood Urea Nitrogen 10 mg/dL (9-20); Calcium 8.6 mg/dL (8.4-10.2); Carbon Dioxide 31 mmol/L (22-30); Chloride 101 mmol/L (98-107); Glucose 142 mg/dL (74-99); Potassium 4.4 mmol/L (3.5-5.1); Sodium 138 mmol/L (137-145)
--- NOTE | 2018-11-06 11:15 | P.PN ---
Subjective Progress Note Date: 11/06/18 Principal diagnosis: Partial colonic obstruction, status post exploratory laparotomy with sigmoid colectomy and colostomy, postop day 7 This is a 73-year-old white male patient that was admitted on 10/30/2018 with constipation, abdominal pain. Ration was found to have partial colonic obstruction at the metallic stent graft site. Patient has a previous history of invasive adenocarcinoma of the colon, with metastases to the liver and lungs diagnosed in 2017 status post 4 rounds of chemotherapy. Today patient is seen in follow-up on medical surgical floor, patient is sitting up in the bed, in no acute distress. Currently on 4 L per nasal cannula his pulse ox is 97%, he is afebrile, hemodynamically stable. Lung sounds are clear, diminished at the bases, patient is working on his incentive spirometry, needs encouragement, able to achieve 1500 on the today. Apparently yesterday patient was noted to be lethargic and tachycardic, and TSH was ordered and was within normal limits, CT angios of the chest showed no evidence of pulmonary embolism, showed bilateral lower lobe infiltrates and atelectasis, and small pleural effusions. Showed increased ascites, large calcified gallstone at the gallbladder neck. Biopsy of the surgical specimen from the colon is still pending at this time. This morning's labs were reviewed, shows WBC of 6.7, hemoglobin is 10.5, sodium is 138, potassium is 4.4, chloride is 101, CO2 was 31, BUN is 10 and creatinine 0.74. Patient is tolerating full liquid diet, ostomy is producing some small amount of liquid yellow stool. Patient was having some [id number] discomfort in the area around the stoma, but no acute distress Objective - Vital Signs Vital signs: Vital Signs Temp 97.8 F 11/06/18 06:35 Pulse 92 11/06/18 09:23 Resp 16 11/06/18 06:35 BP 144/68 11/06/18 06:35 Pulse Ox 98 11/06/18 09:14 Intake & Output 11/05/18 11/06/18 11/06/18 18:59 06:59 18:59 Output Total 550 351722 Balance -550 -140973 Weight 108.6 kg Output: Urine 550 725 Post Void Residual [id number] Other: Voiding Method Indwelling Catheter Urinal Diaper # Voids 0 0 # Bowel Movements 1 1 - Exam GENERAL EXAM: Alert, pleasant 73-year-old white male, comfortable in no apparent distress. HEAD: Normocephalic/atraumatic. EYES: Normal reaction of pupils, equal size. Conjunctiva pink, sclera white. NOSE: Clear with pink turbinates. THROAT: No erythema or exudates. NECK: No masses, no JVD, no thyroid enlargement, no adenopathy. CHEST: No chest wall deformity. Symmetrical expansion. LUNGS: Equal air entry with no crackles, wheeze, rhonchi or dullness. CVS: Regular rate and rhythm, normal S1 and S2, no gallops, no murmurs, no rubs ABDOMEN: Soft. No hepatosplenomegaly, normal bowel sounds, no guarding or rigidity. Left abdominal stoma in place, with small amount of liquid yellow stool in the bag EXTREMITIES: No clubbing, no edema, no cyanosis, 2+ pulses and upper and lower extremities. MUSCULOSKELETAL: Muscle strength and tone normal. SPINE: No scoliosis or deformity SKIN: No rashes CENTRAL NERVOUS SYSTEM: Alert and oriented -3. No focal deficits, tone is normal in all 4 extremities. PSYCHIATRIC: Alert and oriented -3. Appropriate affect. Intact judgment and insight. - Labs CBC & Chem 7: 11/06/18 09:42 11/06/18 09:42 Labs: Abnormal Lab Results - Last 24 Hours (Table) 11/05/18 11/05/18 11/06/18 Range/Units 12:06 17:22 00:52 RBC (4.30-5.90) m/uL Hgb (13.0-17.5) gm/dL Hct (39.0-53.0) % RDW (11.5-15.5) % Lymphocytes # (1.0-4.8) k/uL Carbon Dioxide (22-30) mmol/L Glucose (74-99) mg/dL POC Glucose (mg/dL) 133 H 131 H 137 H (75-99) mg/dL 11/06/18 11/06/18 11/06/18 Range/Units 06:12 09:42 09:42 RBC 3.43 L (4.30-5.90) m/uL Hgb 10.5 L (13.0-17.5) gm/dL Hct 32.8 L (39.0-53.0) % RDW 16.3 H (11.5-15.5) % Lymphocytes # 0.9 L (1.0-4.8) k/uL Carbon Dioxide 31 H (22-30) mmol/L Glucose 142 H (74-99) mg/dL POC Glucose (mg/dL) 129 H (75-99) mg/dL Assessment and Plan Plan: Assessment: #1. Partial colonic obstruction at the metallic stent grafts site, status post exposure laparotomy with sigmoid colectomy and colostomy, postoperative day 7 #2. Invasive adenocarcinoma of the colon, liver and lung metastasis, diagnosed in August 2017, status post 4 rounds of chemotherapy and placement of a metallic stent in the sigmoid colon #3. Chronic obstructive pulmonary disease, currently stable #4. Diabetes mellitus #5. Benign essential hypertension #6. Hyperlipidemia #7. History of gastroesophageal reflux disease, mental status changes including confusion, agitation and delirium, improved Plan: CT angios of the chest was reviewed by Dr. Garcia, no evidence of pulmonary embolism, bilateral lower lobe infiltrates and atelectasis and pleural effusions. Continue encouraging deep breathing and coughing, incentive spirometry use, increase activity as tolerated. Patient's mentation is improving. Tolerating a diet. No acute complaints, anticipate subacute rehab placement. I performed a history & physical examination of the patient and discussed their management with my nurse practitioner, Mita Lugo. I reviewed the nurse practitioner's note and agree with the documented findings and plan of care. Lung sounds are positive for diminished breath sounds at the bases. The findings and the impression was discussed with the patient. I attest to the documentation by the nurse practitioner. Time with Patient: Less than 30
[2018-11-06 12:23] LABS: Glucose,Whole Blood 140 mg/dL (75-99)
--- NOTE | 2018-11-06 16:37 | CDI ---
Documentation Clarification Form Date: 11/06/2018 4:28:58 PM From: Susan CastilloHernandezYAZMIN borrero, CCDS Admit Date: 10/30/2018 4:24:00 PM Patient Name: Mckay Gomez Visit Number: [id number] Discharge Date: ATTENTION: The Clinical Documentation Specialists (CDI) and [facility] Coding Staff appreciate your assistance in clarifying documentation. Please respond to the clarification below the line at the bottom and electronically sign. The CDI & [facility] Coding staff will review the response and follow-up if needed. Please note: Queries are made part of the Legal Health Record. If you have any questions, please contact the author of this message via ITS. Dr. Fina Roman: Per the postoperative progress notes: the patient was confused, agitated & delirious postoperatively requiring IV Haldol. He improved gradually. History/Risk Factors: Colon CA w/mets & chemo. DM, COPD, Hypertension. Clinical Indicators: Presented with a bowel obstruction & is status post a colectomy with colostomy. Initially admitted to ICU postoperatively. Labs: Gluc 137 - 148; Na 135-133-138; Hgb 14.0 - 10.5 (11/06). Treatment: IV Zosyn, IV MagSulf, Albuterol INH, IV Kcl, Multiple doses IV Haldol, postop care. In your professional opinion, can you please clarify the specific type of Encephalopathy, if known? Metabolic Encephalopathy Toxic Encephalopathy Other, please specify Unable to determine (Last Revision: February 2018) Toxic Encephalopathy MTDD
[2018-11-06] MEDS: METOPROLOL TARTRATE 25 MG TAB PO SCH ×2 (16:38→21:07)
--- NOTE | 2018-11-06 17:27 | P.PN ---
Subjective 73 years old male with past medical history of asthma, cancer, COPD, diabetes mellitus, GERD, hyperlipidemia, hypertension. He has history of chronic cancers with liver and pulmonary metastasis, status post chemotherapy. Status post sigmoid colon stent. Who presents with abdominal discomfort and CAT scan shows bowel obstruction and the metallic stent site. Patient has been evaluated by surgeon and he underwent sigmoid colectomy with end colostomy, today is post op day #2. Patient is seen today in the intensive care unit. He was confused and agitated and is earlier today and he got pain medication and Haldol and now he is resting comfortably in bed. Chest x-ray: No active cardiopulmonary disease. His leukocytosis improved today and if his 9K which is within normal limits. Hemoglobin 11.2. Platelets within normal. Sodium 135 , potassium 4.5, creatinine 0.8. Sugar is controlled. 11/03/2018 Patient is doing much better except for some confusional episodes because of Dilaudid unfortunately we don't have any other choice except for Dilaudid for his pain morphine is not helping him and patient is not using much oral. Patient does have good output into the colostomy. Patient is a would have at all. Patient is alert oriented 3 now not agitated. Patient is bit mildly hyponatremic because of which I'm changing her fluid to D5 normal saline with the potassium 11/04/2018 Patient is clinically doing well but tachycardic will obtain TSH. Patient is being transferred out of ICU to medical surgical floor. 11/05/2018 Patient remains lethargic remains tachycardic, patient's a TSH is within normal limits we'll rule out pulmonary embolism if that is negative patient was started on beta sondra for tachycardia patient's colostomy need to be fixed. 11/06/2018 Patient looks bit better today remains tachycardic will started on metoprolol. TSH normal limits and CT angios did not show any pulmonary embolism although patient appears to have gallstone although general surgery is following the patient patient does not have any symptoms of cholecystitis patient is on Zosyn possibly patient the will be discharged tomorrow. Constitutional: Denied any fatigue denied any fever. Cardio vascular: denied any chest pain, palpitations Gastrointestinal denied any nausea vomiting Pulmonary: Denied any shortness of breath cough Neurologic denied any new focal deficits All inpatient medications were reviewed and appropriate changes in these medications as dictated in the interval history and assessment and plan. Objective - Vital Signs Vital signs: Vital Signs Temp 97.9 F 11/06/18 15:00 Pulse 90 11/06/18 16:33 Resp 16 11/06/18 16:00 BP 160/81 11/06/18 15:00 Pulse Ox 96 11/06/18 15:00 Intake & Output 11/05/18 11/06/18 11/06/18 18:59 06:59 18:59 Intake Total 200 Output Total 550 909738 300 Balance -550 -741682 -100 Weight 108.6 kg Intake: Oral 200 Output: Urine 550 725 Post Void Residual 650924 Stool 300 Other: Voiding Method Indwelling Catheter Urinal Urinal Diaper Diaper # Voids 0 0 # Bowel Movements 1 1 - Exam GENERAL: The patient is alert and oriented x3, not in any acute distress. Looks better than yesterday HEENT: Pupils are round and equally reacting to light. EOMI. No scleral icterus. No conjunctival pallor. Normocephalic, atraumatic. No pharyngeal erythema. No thyromegaly. CARDIOVASCULAR: S1 and S2 present. No murmurs, rubs, or gallops. Tachycardic PULMONARY: Chest is clear to auscultation, no wheezing or crackles. -ABDOMEN: Soft, nontender, nondistended, normoactive bowel sounds. No palpable organomegaly. Surgical wound, vertical in the lower abdomen midline, with closed ages and tootie in place no purulent discharge or surrounding cellulitis. MUSCULOSKELETAL: No joint swelling or deformity. EXTREMITIES: No cyanosis, clubbing, or pedal edema. NEUROLOGICAL: Gross neurological examination did not reveal any focal deficits. SKIN: No rashes. - Labs CBC & Chem 7: 11/06/18 09:42 11/06/18 09:42 Labs: Abnormal Lab Results - Last 24 Hours (Table) 11/05/18 11/06/18 11/06/18 Range/Units 17:22 00:52 06:12 RBC (4.30-5.90) m/uL Hgb (13.0-17.5) gm/dL Hct (39.0-53.0) % RDW (11.5-15.5) % Lymphocytes # (1.0-4.8) k/uL Carbon Dioxide (22-30) mmol/L Glucose (74-99) mg/dL POC Glucose (mg/dL) 131 H 137 H 129 H (75-99) mg/dL 11/06/18 11/06/18 11/06/18 Range/Units 09:42 09:42 12:10 RBC 3.43 L (4.30-5.90) m/uL Hgb 10.5 L (13.0-17.5) gm/dL Hct 32.8 L (39.0-53.0) % RDW 16.3 H (11.5-15.5) % Lymphocytes # 0.9 L (1.0-4.8) k/uL Carbon Dioxide 31 H (22-30) mmol/L Glucose 142 H (74-99) mg/dL POC Glucose (mg/dL) 140 H (75-99) mg/dL Assessment and Plan Plan: Intestinal obstructions at colonic stent site status post colectomy with end colostomy. Patient is on Zosyn at this time -Adenocarcinoma of the colon: We'll consult oncology History of COPD History of diabetes mellitus Essential hypertension Hyperlipidemia History of GERD -Mild hyponatremia secondary to D5 half-normal saline which she is being switched as mentioned above Tachycardia, ruled out pulmonary embolism TSH within normal limits patient was started on metoprolol Plan: Physical therapy evaluation possibility of discharge to subacute rehabilitation tomorrow Plan is as mentioned in the interval history. DVT prophylaxis: Subcutaneous heparin GI Prophylaxis: Protonix
[2018-11-06 17:32] LABS: Glucose,Whole Blood 128 mg/dL (75-99)
--- NOTE | 2018-11-06 19:52 | P.PN ---
Subjective Progress Note Date: 11/06/18 Principal diagnosis: Colonic obstruction Patient feels about the same today. Appetite is diminished. He has had flatus and stool through the ostomy. Some bloating symptoms. Denies any pain around the ostomy. Objective - Vital Signs Vital signs: Vital Signs Temp 97.9 F 11/06/18 15:00 Pulse 90 11/06/18 16:33 Resp 16 11/06/18 16:00 BP 160/81 11/06/18 15:00 Pulse Ox 96 11/06/18 15:00 Intake & Output 11/06/18 11/06/18 11/07/18 06:59 18:59 06:59 Intake Total 200 Output Total 493190 300 Balance -344197 -100 Intake: Oral 200 Output: Urine 725 Post Void Residual 161720 Stool 300 Other: Voiding Method Urinal Urinal Diaper Diaper # Voids 0 # Bowel Movements 1 - Exam Abdomen: Soft, minimal distention, nontender, incision clean, ostomy pink just below skin surface - Labs CBC & Chem 7: 11/06/18 09:42 11/06/18 09:42 Labs: Abnormal Lab Results - Last 24 Hours (Table) 11/06/18 11/06/18 11/06/18 Range/Units 00:52 06:12 09:42 RBC 3.43 L (4.30-5.90) m/uL Hgb 10.5 L (13.0-17.5) gm/dL Hct 32.8 L (39.0-53.0) % RDW 16.3 H (11.5-15.5) % Lymphocytes # 0.9 L (1.0-4.8) k/uL Carbon Dioxide (22-30) mmol/L Glucose (74-99) mg/dL POC Glucose (mg/dL) 137 H 129 H (75-99) mg/dL 11/06/18 11/06/18 11/06/18 Range/Units 09:42 12:10 17:24 RBC (4.30-5.90) m/uL Hgb (13.0-17.5) gm/dL Hct (39.0-53.0) % RDW (11.5-15.5) % Lymphocytes # (1.0-4.8) k/uL Carbon Dioxide 31 H (22-30) mmol/L Glucose 142 H (74-99) mg/dL POC Glucose (mg/dL) 140 H 128 H (75-99) mg/dL Assessment and Plan (1) Colonic obstruction Narrative/Plan: Continue oral intake. Increase activity with physical therapy. Monitor colostomy. Current Visit: Yes Status: Acute Code(s): K56.609 - UNSP INTESTNL OBST, UNSP TO PARTIAL VERSUS COMPLETE OBST SNOMED Code(s): 12685417
[2018-11-06] MEDS: MELATONIN 3 MG TABLET PO PRN (21:50)
[2018-11-07] MEDS: PIPERACILLIN-TAZOBACTAM 3.375 GM in SODIUM CHLORIDE 0.9% 100 ML IVPB SCH ×3 (00:15→17:10)
[2018-11-07] MEDS: HEPARIN SODIUM,PORCINE 5,000 UNIT/ML 1 ML VIAL SQ SCH ×3 (00:18→17:10)
[2018-11-07] MEDS: INSULIN ASPART 100 UNIT/ML 1 ML 10 ML VIAL SQ SCH ×4 (00:37→17:33)
[2018-11-07 00:39] LABS: Glucose,Whole Blood 133 mg/dL (75-99)
[2018-11-07] MEDS: HYDROmorphone 0.5 MG/0.5 ML SYRINGE IVP PRN ×6 (00:42→22:09)
[2018-11-07] MEDS: IPRATROPIUM-ALBUTEROL 3 ML NEB INHALATION SCH ×4 (05:42→19:49)
[2018-11-07 06:28] LABS: Glucose,Whole Blood 138 mg/dL (75-99)
[2018-11-07] MEDS: METOPROLOL TARTRATE 25 MG TAB PO SCH (07:57)
[2018-11-07] MEDS: NYSTATIN 100,000 UNIT/ML SUSP 500,000 UNIT/5 ML CUP PO SCH ×4 (07:57→20:43)
[2018-11-07] MEDS: PANTOPRAZOLE 40 MG/10 ML VIAL IV SCH (07:57)
--- NOTE | 2018-11-07 09:33 | P.PN ---
Subjective Progress Note Date: 11/07/18 Principal diagnosis: Colonic obstruction Patient remains slightly confused. Denies any significant pain. Having bowel activity through stoma throughout the night. No nausea or vomiting. He is tolerating his breakfast currently. No labs thus far. Objective - Vital Signs Vital signs: Vital Signs Temp 98.4 F 11/07/18 06:24 Pulse 99 11/07/18 06:24 Resp 18 11/07/18 08:00 BP 118/64 11/07/18 06:24 Pulse Ox 92 L 11/07/18 06:24 Intake & Output 11/06/18 11/07/18 11/07/18 18:59 06:59 18:59 Intake Total 200 500 Output Total 300 300 300 Balance -100 200 -300 Intake: IV 500 D5-0.9% NaCl with KCl 20 400 Meq/l 1,000 ml @ 50 mls/ hr IV .Q20H [facility] Rx#: [id number] Piperacillin-Tazobactam 3 100 .375 gm In Sodium Chloride 0.9% 100 ml @ 25 mls/hr IVPB Q8HR [facility] Rx# :[id number] Oral 200 Output: Stool 300 300 300 Other: Voiding Method Urinal Urinal Urinal Diaper Diaper Diaper # Voids 2 # Bowel Movements 0 - Exam Abdomen: Soft, nondistended, incision with small amount of serosanguineous drainage from wick sites, ostomy functioning difficult to visualize the stoma with overlying stool this morning - Labs CBC & Chem 7: 11/06/18 09:42 11/06/18 09:42 Labs: Abnormal Lab Results - Last 24 Hours (Table) 11/06/18 11/06/18 11/06/18 Range/Units 09:42 09:42 12:10 RBC 3.43 L (4.30-5.90) m/uL Hgb 10.5 L (13.0-17.5) gm/dL Hct 32.8 L (39.0-53.0) % RDW 16.3 H (11.5-15.5) % Lymphocytes # 0.9 L (1.0-4.8) k/uL Carbon Dioxide 31 H (22-30) mmol/L Glucose 142 H (74-99) mg/dL POC Glucose (mg/dL) 140 H (75-99) mg/dL 11/06/18 11/07/18 11/07/18 Range/Units 17:24 00:28 06:02 RBC (4.30-5.90) m/uL Hgb (13.0-17.5) gm/dL Hct (39.0-53.0) % RDW (11.5-15.5) % Lymphocytes # (1.0-4.8) k/uL Carbon Dioxide (22-30) mmol/L Glucose (74-99) mg/dL POC Glucose (mg/dL) 128 H 133 H 138 H (75-99) mg/dL Assessment and Plan (1) Colonic obstruction Narrative/Plan: Continue local wound care to the midline incision and also to the stomal border. Continue diet as tolerated. Increase activity with physical therapy. Prognosis guarded. Current Visit: Yes Status: Acute Code(s): K56.609 - UNSP INTESTNL OBST, UNSP TO PARTIAL VERSUS COMPLETE OBST SNOMED Code(s): 31395553
--- NOTE | 2018-11-07 12:28 | P.PN ---
Subjective Progress Note Date: 11/07/18 Principal diagnosis: Constipation abdominal pain with colonic obstruction and history of neoplasm. Status post sigmoid colectomy with end colostomy. This is a very pleasant 73-year-old gentleman who follows with Dr. Coley as his primary care physician. He has a history of diabetes mellitus, gastroesophageal reflux disease, hyperlipidemia, hypertension, chronic obstructive pulmonary disease and a remote history of chronic tobacco dependence. He also has a history of colon cancer with lung and liver metastasis and had undergone 2 rounds of chemotherapy the last time about 4 weeks ago. He also had a stent placed in the sigmoid colon at [facility]. He presented here to the emergency room yesterday with complaints of constipation and increasing abdominal discomfort. Computed tomography scan of the abdomen revealed a new significant partial colonic obstruction at the metallic stent graft site. There is also significant colonic dilatation without small bowel dilatation. Early pneumatosis could not be excluded. He was seen and evaluated by Dr. Esteban and had undergone a sigmoid colectomy with end colostomy yesterday afternoon. Based on the significant surgery and multiple comorbidities he was transferred to the intensive care unit. He is seen there today in consultation at he is currently awake and alert in no acute distress. He denies any worsening shortness of breath, cough or congestion. His pain is fairly well controlled. Chest x-ray reveals a new right hemidiaphragm elevation. There is some engorgement of the hilum possibly representing adenopathy pulmonary arterial enlargement. He is currently maintaining good O2 saturation in the 90s on 4 L/m per nasal cannula. He has an IV of D5.45 normal saline with 20 KCl at 125 ML's per hour. Current temp 99.9. He is tachycardic in the 110's. White count 14.0. Hemoglobin 13.8. Creatinine 0.91. Abdominal dressing is dry and intact. Stoma pink. He remains on DuoNeb inhalations. Heparin for DVT prophylaxis and antibiotics in the form of Zosyn. The patient is seen today 11/07/2018 in follow-up on the regular medical floor. He is currently sitting up in a chair at the bedside. He has been having some oozing from the wick sites of his surgical incision. Ostomy is patent and there is stool present. He denies any worsening shortness of breath, cough or congestion. He is having some issues with anxiety and confusion at times. His is at the bedside. He is afebrile. Hemodynamically stable. Maintaining O2 saturations in the 90s on 4 L/m per nasal cannula. He remains on Zosyn and bronchodilators. Objective - Vital Signs Vital signs: Vital Signs Temp 98.4 F 11/07/18 06:24 Pulse 108 H 11/07/18 12:02 Resp 18 11/07/18 08:00 BP 118/64 11/07/18 06:24 Pulse Ox 92 L 11/07/18 11:52 Intake & Output 11/06/18 11/07/18 11/07/18 18:59 06:59 18:59 Intake Total 200 500 Output Total 300 300 300 Balance -100 200 -300 Weight 108.6 kg Intake: IV 500 D5-0.9% NaCl with KCl 20 400 Meq/l 1,000 ml @ 50 mls/ hr IV .Q20H [facility] Rx#: [id number] Piperacillin-Tazobactam 3 100 .375 gm In Sodium Chloride 0.9% 100 ml @ 25 mls/hr IVPB Q8HR [facility] Rx# :[id number] Oral 200 Output: Stool 300 300 300 Other: Voiding Method Urinal Urinal Urinal Diaper Diaper Diaper # Voids 2 # Bowel Movements 0 - Exam General appearance: average body habitus, no acute distress on 4 L/m per nasal cannula, somewhat confused and anxious at times - EENT Eyes: EOMI, PERRLA ENT: hearing grossly normal Ears: bilateral: normal - Neck Neck: normal ROM Carotids: bilateral: upstroke normal Thyroid: bilateral: normal size - Respiratory Respiratory: bilateral: diminished - Cardiovascular Rhythm: regular Heart sounds: normal: S1, S2 - Gastrointestinal General gastrointestinal: Normal bowel sounds Localized gastrointestinal: tender: ostomy patent. - Integumentary Integumentary: normal turgor, surgical incision with some oozing at wick sites - Neurologic Neurologic: CNII-XII intact - Musculoskeletal Musculoskeletal: generalized weakness - Psychiatric Psychiatric: appropriate affect, anxious - Labs CBC & Chem 7: 11/06/18 09:42 11/06/18 09:42 Labs: Abnormal Lab Results - Last 24 Hours (Table) 11/06/18 11/06/18 11/07/18 Range/Units 12:10 17:24 00:28 POC Glucose (mg/dL) 140 H 128 H 133 H (75-99) mg/dL 11/07/18 Range/Units 06:02 POC Glucose (mg/dL) 138 H (75-99) mg/dL Assessment and Plan Assessment: Impression: #1 Constipation and abdominal pain in a patient found to have a new significant partial colonic obstruction at the metallic stent graft site of known neoplasm. There is significant colonic dilatation without small bowel dilatation. Status post sigmoid colectomy with end colostomy. 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 Status post 4 rounds of chemotherapy. Status post stent placement in the sigmoid colon. Last computed tomography scan in August 2018 revealed the metallic stent across the mid sigmoid colon. He was decreased size in the metastatic portacaval lymph node and smaller pulmonary nodules and stable hepatic lesions. Stable pericardiac lymph node. #3 Chronic obstructive pulmonary disease. #4 Diabetes mellitus. #5 Hypertension. #6 Hyperlipidemia. #7 Gastroesophageal reflux disease. Plan: The patient was seen and evaluated by Dr. Garcia. Continue with IV Zosyn. Continue incentive spirometer and encourage increased use and cough and deep breathing exercises. Continue with bronchodilators. Titrate down the FiO2 as tolerated. He remains on heparin for DVT prophylaxis. Protonix for GI prophylaxis. We will add Xanax for his anxiety. He is a DO NOT RESUSCITATE/DO NOT INTUBATE CODE STATUS. We will increase his activity as tolerated. We'll continue to follow make further recommendations based on his clinical status. I, the cosigning physician, performed a history & physical examination of the patient. Lungs sounds with few scattered rhonchi, crackles in the posterior bases.. Maintaining good O2 saturations in the 90s on 4 L/m per nasal cannula. I discussed the assessment and plan of care with my nurse practitioner, Marilyn Peterson. I attest to the above note as dictated by her.
--- NOTE | 2018-11-07 12:37 | P.CONS ---
History of Present Illness - Reason for Consult Consult date: 11/07/18 Colon Cancer Requesting physician: Fina Roman - Chief Complaint Abdominal Pain - History of Present Illness Mr. Gomez is a patient of Dr. Griffin well known to him for treatment of his metastatic colon cancer. He has rreceived multiple lines of therapy, most recently 5FU, Oxaliplatin and Avastin. He was last seen in office on 10/07/18 and complained of increased overall fatigue, weight loss, and weakness, at this time he was placed on a 6-8 week chemo holiday. The plan was for re-evaluation in 6-8 weeks repeat imaging. He orginally presented 8 days ago with complaints of increased abdominal discomfort, CT scan showed obtruction at the metallic stent site. He underwent sigmoid colectomy and end colostomy. Post operatively he apparently experienced some confusion although this has improved. Oncology has now been consulted regarding further recommendations after discharge. Review of Systems A 14 point review of system assessed and completed and all negative except HPI. Past Medical History Past Medical History: Asthma, Cancer, COPD, Diabetes Mellitus, GERD/Reflux, Hyperlipidemia, Hypertension Additional Past Medical History / Comment(s): ABDOMINAL PAIN AND CONSTIPATION, colon cancer History of Any Multi-Drug Resistant Organisms: None Reported Past Surgical History: No Surgical Hx Reported Additional Past Surgical History / Comment(s): colon stent Past Anesthesia/Blood Transfusion Reactions: No Reported Reaction Additional Past Anesthesia/Blood Transfusion Reaction / Comm: NO PRIOR SX HX Past Psychological History: No Psychological Hx Reported Smoking Status: Never smoker Past Alcohol Use History: None Reported Additional Past Alcohol Use History / Comment(s): QUIT SMOKING 2000,smoked approx 30 yrs 1ppd Past Drug Use History: None Reported - Past Family History Father Family Medical History: Cancer Medications and Allergies Home Medications Medication Instructions Recorded Confirmed Type Allopurinol [Zyloprim] 300 mg PO DAILY 08/16/17 10/30/18 History Simvastatin [Zocor] 20 mg PO HS 08/16/17 10/30/18 History Tiotropium 18 Mcg/Puff [Spiriva] 1 puff INHALATION RT-HS 08/16/17 10/30/18 History Zolpidem [Ambien] 5 mg PO HS 08/16/17 10/30/18 History amLODIPine [Norvasc] 5 mg PO QAM 08/16/17 10/30/18 History metFORMIN HCL [Glucophage] 500 mg PO BID 08/16/17 10/30/18 History Allergies Allergy/AdvReac Type Severity Reaction Status Date / Time moxifloxacin [From Avelox] Allergy Swelling Verified 10/30/18 14:27 Physical Exam Vitals: Vital Signs Temp Pulse Pulse Pulse Resp BP Pulse Ox 11/07/18 12:02 108 H 11/07/18 11:52 100 92 L 11/07/18 08:00 18 11/07/18 06:24 98.4 F 99 20 118/64 92 L 11/07/18 05:54 102 H 11/07/18 05:44 105 H 11/07/18 00:00 18 11/06/18 23:00 97.6 F 92 19 172/91 97 11/06/18 21:09 100 11/06/18 20:59 100 11/06/18 20:10 16 11/06/18 16:33 90 11/06/18 16:22 90 11/06/18 16:00 16 11/06/18 15:00 97.9 F 104 H 20 160/81 96 11/06/18 14:07 100 11/06/18 13:55 100 Intake and Output 11/06/18 11/07/18 11/07/18 22:59 06:59 14:59 Intake Total 500 Output Total 300 300 Balance 200 -300 Intake: IV 500 D5-0.9% NaCl with KCl 20 400 Meq/l 1,000 ml @ 50 mls/ hr IV .Q20H [facility] Rx#: [id number] Piperacillin-Tazobactam 3 100 .375 gm In Sodium Chloride 0.9% 100 ml @ 25 mls/hr IVPB Q8HR [facility] Rx# :[id number] Output: Stool 300 300 Other: Voiding Method Urinal Urinal Urinal Diaper Diaper Diaper # Voids 2 # Bowel Movements 0 Weight 108.6 kg - Constitutional General appearance: average body habitus, no acute distress - EENT Eyes: EOMI, PERRL ENT: hearing grossly normal Ears: bilateral: normal - Neck Neck: normal ROM Carotids: bilateral: upstroke normal Thyroid: bilateral: normal size - Respiratory Respiratory: bilateral: diminished - Cardiovascular Rhythm: regular Heart sounds: normal: S1, S2 - Gastrointestinal General gastrointestinal: decreased bowel sounds Localized gastrointestinal: tender: diffuse, End colostomy - Integumentary Integumentary: normal turgor - Neurologic Neurologic: CNII-XII intact - Musculoskeletal Musculoskeletal: generalized weakness - Psychiatric Psychiatric: A&O x's 3, appropriate affect, intact judgment & insight Results CBC & Chem 7: 11/06/18 09:42 11/06/18 09:42 Labs: Abnormal Lab Results - Last 24 Hours (Table) 11/06/18 11/06/18 11/07/18 Range/Units 12:10 17:24 00:28 POC Glucose (mg/dL) 140 H 128 H 133 H (75-99) mg/dL 11/07/18 Range/Units 06:02 POC Glucose (mg/dL) 138 H (75-99) mg/dL CT scan - abdomen: report reviewed CT scan - chest: report reviewed CT scan - pelvis: report reviewed Assessment and Plan (1) Colon cancer Current Visit: Yes Status: Acute Code(s): C18.9 - MALIGNANT NEOPLASM OF COLON, UNSPECIFIED SNOMED Code(s): 157574824 (2) Colonic obstruction Current Visit: Yes Status: Acute Code(s): K56.609 - UNSP INTESTNL OBST, UNSP TO PARTIAL VERSUS COMPLETE OBST SNOMED Code(s): 82505269 Plan: 73 year old male well known to Dr. Ahumada after undergoing multiple lines of therapy for his metastatic (lung and liver) colon cancer. Most recent treatment with 5FU, Oxaliplatin, and Avastin. last treatment on 09/29/18. He now has been hospitalized with obstruction requiring sigmoid colectomy and end colostomy. He is recovering from surgery. - Continue to recover post operatively per recs of surgery - No treatment planned until after discharge from reahilitation if needed as outpatient - Monitor closely for any delays in wound healing secondary to Avastin (anti- angiogenis treatment), last given 09/29/18 - rec 4-6 weeks for surgical intervention unless emergent. I do not anticipate issue from this as greater than 4 weeks since last treatment, but will monitor closely - Follow-up with Dr. Ahumada after discharge from Rehab or Hospital to determine next treatment plan as outpatient - COntinue supportive and surgical recs Thank you for allowing participation in follow-up.
--- NOTE | 2018-11-07 16:22 | P.PN ---
Subjective 73 years old male with past medical history of asthma, cancer, COPD, diabetes mellitus, GERD, hyperlipidemia, hypertension. He has history of chronic cancers with liver and pulmonary metastasis, status post chemotherapy. Status post sigmoid colon stent. Who presents with abdominal discomfort and CAT scan shows bowel obstruction and the metallic stent site. Patient has been evaluated by surgeon and he underwent sigmoid colectomy with end colostomy, today is post op day #2. Patient is seen today in the intensive care unit. He was confused and agitated and is earlier today and he got pain medication and Haldol and now he is resting comfortably in bed. Chest x-ray: No active cardiopulmonary disease. His leukocytosis improved today and if his 9K which is within normal limits. Hemoglobin 11.2. Platelets within normal. Sodium 135 , potassium 4.5, creatinine 0.8. Sugar is controlled. 11/03/2018 Patient is doing much better except for some confusional episodes because of Dilaudid unfortunately we don't have any other choice except for Dilaudid for his pain morphine is not helping him and patient is not using much oral. Patient does have good output into the colostomy. Patient is a would have at all. Patient is alert oriented 3 now not agitated. Patient is bit mildly hyponatremic because of which I'm changing her fluid to D5 normal saline with the potassium 11/04/2018 Patient is clinically doing well but tachycardic will obtain TSH. Patient is being transferred out of ICU to medical surgical floor. 11/05/2018 Patient remains lethargic remains tachycardic, patient's a TSH is within normal limits we'll rule out pulmonary embolism if that is negative patient was started on beta sondra for tachycardia patient's colostomy need to be fixed. 11/06/2018 Patient looks bit better today remains tachycardic will started on metoprolol. TSH normal limits and CT angios did not show any pulmonary embolism although patient appears to have gallstone although general surgery is following the patient patient does not have any symptoms of cholecystitis patient is on Zosyn possibly patient the will be discharged tomorrow. 11/07/2018 Patient looks severely lethargic patient had a drain for his abdominal wound patient is not improving patient remains tachycardic increasing the dose of beta sondra. Patient is able to the I believe his severe lethargy no significant improvement with prolonged postoperative course is because of his malignancy. Patient was evaluated by oncology today. Chemotherapy will be temporarily held and patient if he improves will be discharged to subacute rehabilitation on Saturday Constitutional: Denied any fatigue denied any fever. Cardio vascular: denied any chest pain, palpitations Gastrointestinal denied any nausea vomiting Pulmonary: Denied any shortness of breath cough Neurologic denied any new focal deficits All inpatient medications were reviewed and appropriate changes in these medications as dictated in the interval history and assessment and plan. Objective - Vital Signs Vital signs: Vital Signs Temp 98.4 F 11/07/18 06:24 Pulse 100 11/07/18 16:01 Resp 18 11/07/18 08:00 BP 118/64 11/07/18 06:24 Pulse Ox 92 L 11/07/18 11:52 Intake & Output 11/06/18 11/07/18 11/07/18 18:59 06:59 18:59 Intake Total 200 500 Output Total 300 300 300 Balance -100 200 -300 Weight 108.6 kg Intake: IV 500 D5-0.9% NaCl with KCl 20 400 Meq/l 1,000 ml @ 50 mls/ hr IV .Q20H [facility] Rx#: [id number] Piperacillin-Tazobactam 3 100 .375 gm In Sodium Chloride 0.9% 100 ml @ 25 mls/hr IVPB Q8HR [facility]ACE[facility] Rx# :[id number] Oral 200 Output: Stool 300 300 300 Other: Voiding Method Urinal Urinal Urinal Diaper Diaper Diaper # Voids 2 # Bowel Movements 0 - Exam GENERAL: The patient is alert and oriented x3, not in any acute distress. Looks lethargic sick HEENT: Pupils are round and equally reacting to light. EOMI. No scleral icterus. No conjunctival pallor. Normocephalic, atraumatic. No pharyngeal erythema. No thyromegaly. CARDIOVASCULAR: S1 and S2 present. No murmurs, rubs, or gallops. Tachycardic PULMONARY: Chest is clear to auscultation, no wheezing or crackles. -ABDOMEN: Soft, nontender, nondistended, normoactive bowel sounds. No palpable organomegaly. Patient has wound VAC in place patient does have bowel meant sent to the colostomy MUSCULOSKELETAL: No joint swelling or deformity. EXTREMITIES: No cyanosis, clubbing, or pedal edema. NEUROLOGICAL: Gross neurological examination did not reveal any focal deficits. SKIN: No rashes. - Labs CBC & Chem 7: 11/06/18 09:42 11/06/18 09:42 Labs: Abnormal Lab Results - Last 24 Hours (Table) 11/06/18 11/07/18 11/07/18 Range/Units 17:24 00:28 06:02 POC Glucose (mg/dL) 128 H 133 H 138 H (75-99) mg/dL Assessment and Plan Plan: Intestinal obstructions at colonic stent site status post colectomy with end colostomy. Patient is on Zosyn at this time, wound VAC in place -Adenocarcinoma of the colon: Patient is receiving chemotherapy and present chemo is on hold because of his complications weakness. History of COPD History of diabetes mellitus Essential hypertension Hyperlipidemia History of GERD -Mild hyponatremia secondary to D5 half-normal saline which she is being switched as mentioned above Tachycardia, ruled out pulmonary embolism TSH within normal limits patient was started on metoprolol Plan: Physical therapy evaluation. Patient doesn't have any significant improvement since surgery. Plan is as mentioned in the interval history. DVT prophylaxis: Subcutaneous heparin GI Prophylaxis: Protonix
[2018-11-07] MEDS: D5-0.9% NACL WITH KCL 20 MEQ/L 1,000 ML IV SCH (17:11)
[2018-11-07 17:33] LABS: Glucose,Whole Blood 137 mg/dL (75-99)
[2018-11-07] MEDS: ALPRAZolam 0.5 MG TAB PO PRN (20:43)
[2018-11-07] MEDS: METOPROLOL TARTRATE 50 MG TAB PO SCH (20:43)
[2018-11-07] MEDS: MELATONIN 3 MG TABLET PO PRN (20:43)
[2018-11-08] MEDS: PIPERACILLIN-TAZOBACTAM 3.375 GM in SODIUM CHLORIDE 0.9% 100 ML IVPB SCH ×4 (00:15→23:23)
[2018-11-08] MEDS: HEPARIN SODIUM,PORCINE 5,000 UNIT/ML 1 ML VIAL SQ SCH ×4 (00:18→23:23)
[2018-11-08 00:31] LABS: Glucose,Whole Blood 167 mg/dL (75-99)
[2018-11-08] MEDS: INSULIN ASPART 100 UNIT/ML 1 ML 10 ML VIAL SQ SCH ×5 (00:33→23:22)
[2018-11-08] MEDS: HYDROmorphone 0.5 MG/0.5 ML SYRINGE IVP PRN ×4 (01:47→23:23)
[2018-11-08 06:29] LABS: Glucose,Whole Blood 126 mg/dL (75-99)
[2018-11-08] MEDS: METOPROLOL TARTRATE 50 MG TAB PO SCH ×2 (07:35→20:51)
[2018-11-08] MEDS: PANTOPRAZOLE 40 MG/10 ML VIAL IV SCH (07:35)
[2018-11-08] MEDS: NYSTATIN 100,000 UNIT/ML SUSP 500,000 UNIT/5 ML CUP PO SCH ×4 (07:35→20:51)
[2018-11-08] MEDS: MORPHINE SULFATE 4 MG/ML SYRINGE IV PRN ×2 (07:43→21:32)
[2018-11-08] MEDS: ALPRAZolam 0.5 MG TAB PO PRN (08:22)
[2018-11-08] MEDS: IPRATROPIUM-ALBUTEROL 3 ML NEB INHALATION SCH ×3 (08:51→20:23)
[2018-11-08 12:14] LABS: Glucose,Whole Blood 116 mg/dL (75-99)
--- NOTE | 2018-11-08 12:45 | P.PN ---
Subjective Progress Note Date: 11/08/18 Principal diagnosis: Constipation abdominal pain with colonic obstruction and history of neoplasm. Status post sigmoid colectomy with end colostomy. This is a very pleasant 73-year-old gentleman who follows with Dr. Coley as his primary care physician. He has a history of diabetes mellitus, gastroesophageal reflux disease, hyperlipidemia, hypertension, chronic obstructive pulmonary disease and a remote history of chronic tobacco dependence. He also has a history of colon cancer with lung and liver metastasis and had undergone 2 rounds of chemotherapy the last time about 4 weeks ago. He also had a stent placed in the sigmoid colon at [facility]. He presented here to the emergency room yesterday with complaints of constipation and increasing abdominal discomfort. Computed tomography scan of the abdomen revealed a new significant partial colonic obstruction at the metallic stent graft site. There is also significant colonic dilatation without small bowel dilatation. Early pneumatosis could not be excluded. He was seen and evaluated by Dr. Esteban and had undergone a sigmoid colectomy with end colostomy yesterday afternoon. Based on the significant surgery and multiple comorbidities he was transferred to the intensive care unit. He is seen there today in consultation at he is currently awake and alert in no acute distress. He denies any worsening shortness of breath, cough or congestion. His pain is fairly well controlled. Chest x-ray reveals a new right hemidiaphragm elevation. There is some engorgement of the hilum possibly representing adenopathy pulmonary arterial enlargement. He is currently maintaining good O2 saturation in the 90s on 4 L/m per nasal cannula. He has an IV of D5.45 normal saline with 20 KCl at 125 ML's per hour. Current temp 99.9. He is tachycardic in the 110's. White count 14.0. Hemoglobin 13.8. Creatinine 0.91. Abdominal dressing is dry and intact. Stoma pink. He remains on DuoNeb inhalations. Heparin for DVT prophylaxis and antibiotics in the form of Zosyn. The patient is seen today 11/07/2018 in follow-up on the regular medical floor. He is currently sitting up in a chair at the bedside. He has been having some oozing from the wick sites of his surgical incision. Ostomy is patent and there is stool present. He denies any worsening shortness of breath, cough or congestion. He is having some issues with anxiety and confusion at times. His is at the bedside. He is afebrile. Hemodynamically stable. Maintaining O2 saturations in the 90s on 4 L/m per nasal cannula. He remains on Zosyn and bronchodilators. The patient is seen again today 11/08/2018 in follow-up on the regular medical floor. He is currently resting quite comfortably in bed. He is more relaxed today as compared to yesterday. He was initiated on Xanax. He is maintaining O2 saturation in the 90s on 4 L/m per nasal cannula. He is currently on Zosyn. His abdominal incision now has a wound VAC in place. Ostomy patent. Objective - Vital Signs Vital signs: Vital Signs Temp 98.8 F 11/08/18 06:00 Pulse 92 11/08/18 11:51 Resp 18 11/08/18 11:38 BP 134/75 11/08/18 06:00 Pulse Ox 96 11/08/18 06:00 Intake & Output 11/07/18 11/08/18 11/08/18 18:59 06:59 18:59 Intake Total 400 Output Total 300 300 Balance -300 400 -300 Weight 108.6 kg Intake: Oral 400 Output: Stool 300 300 Other: Voiding Method Urinal Urinal Diaper Diaper Diaper Incontinent # Voids 2 - Exam General appearance: average body habitus, no acute distress on 4 L/m per nasal cannula, more relaxed and comfortable - EENT Eyes: EOMI, PERRLA ENT: hearing grossly normal Ears: bilateral: normal - Neck Neck: normal ROM Carotids: bilateral: upstroke normal Thyroid: bilateral: normal size - Respiratory Respiratory: bilateral: diminished - Cardiovascular Rhythm: regular Heart sounds: normal: S1, S2 - Gastrointestinal General gastrointestinal: Normal bowel sounds Localized gastrointestinal: tender: ostomy patent. - Integumentary Integumentary: normal turgor, surgical incision with wound VAC in place - Neurologic Neurologic: CNII-XII intact - Musculoskeletal Musculoskeletal: generalized weakness - Psychiatric Psychiatric: appropriate affect, anxious - Labs CBC & Chem 7: 11/06/18 09:42 11/06/18 09:42 Labs: Abnormal Lab Results - Last 24 Hours (Table) 11/07/18 11/08/18 11/08/18 Range/Units 17:31 00:22 06:24 POC Glucose (mg/dL) 137 H 167 H 126 H (75-99) mg/dL 11/08/18 Range/Units 12:03 POC Glucose (mg/dL) 116 H (75-99) mg/dL Assessment and Plan Assessment: Impression: #1 Constipation and abdominal pain in a patient found to have a new significant partial colonic obstruction at the metallic stent graft site of known neoplasm. There is significant colonic dilatation without small bowel dilatation. Status post sigmoid colectomy with end colostomy. Wound VAC in place to surgical site. 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 Status post 4 rounds of chemotherapy. Status post stent placement in the sigmoid colon. Last computed tomography scan in August 2018 revealed the metallic stent across the mid sigmoid colon. He was decreased size in the metastatic portacaval lymph node and smaller pulmonary nodules and stable hepatic lesions. Stable pericardiac lymph node. #3 Chronic obstructive pulmonary disease. #4 Diabetes mellitus. #5 Hypertension. #6 Hyperlipidemia. #7 Gastroesophageal reflux disease. Plan: The patient was seen and evaluated by Dr. Garcia. Patient's overall prognosis remains quite guarded and poor. He has been slow to progress. He is a DO NOT RESUSCITATE/DO NOT INTUBATE CODE STATUS. The family is considering hospice. Consult has been placed. We'll continue to follow make further recommendations based on his clinical status. I, the cosigning physician, performed a history & physical examination of the patient. Lungs sounds with few scattered rhonchi, crackles in the posterior bases.. Maintaining good O2 saturations in the 90s on 4 L/m per nasal cannula. I discussed the assessment and plan of care with my nurse practitioner, Marilyn Peterson. I attest to the above note as dictated by her.
[2018-11-08] MEDS: D5-0.9% NACL WITH KCL 20 MEQ/L 1,000 ML IV SCH (12:50)
[2018-11-08] MEDS ORDERED: CALCIUM CARBONATE 500 MG CHEWABLE PO PRN (13:12)
--- NOTE | 2018-11-08 17:45 | P.PN ---
Subjective Progress Note Date: 11/08/18 CHIEF COMPLAINT: Status post sigmoid colectomy and descending colostomy HISTORY OF PRESENT ILLNESS: The patient is a 73 year old female who is status post descending colostomy creation, 10/30/18, POD 9. Family reports that he is pucking up "green stuff" all day. Nurse reports minimal output 20 mL out of his ostomy. He has an abdominal wound VAC. PHYSICAL EXAM: VITAL SIGNS: Reviewed GENERAL: Well-developed in no acute distress. HEENT: No sclera icterus. Extraocular movements grossly intact. Moist buccal mucosa. Head is atraumatic, normocephalic. Hears conversational speech. No nasal drainage. NECK: Supple without lymphadenopathy. CHEST: Non-labored respirations and equal bilateral excursions. CARDIOVASCULAR: Regular rate with regular rhythm. ABDOMEN: Ostomy viable and patent without flatus with only liquid light brown thin drainage. Wound VAC with seal intact and serosanguinous drainage. Distended. No signs of infection. MUSCULOSKELETAL: No clubbing, cyanosis or edema. NEUROLOGIC: No focal or lateralizing signs. Cranial nerves II through XII grossly intact. PSYCH: Alert and oriented to person, place and time. SKIN: Well perfused. Good skin turgor. LABS: Reviewed ASSESSMENT: 1. Large bowel obstruction status post descending colostomy creation 2. Colon cancer, sigmoid colon PLAN: 1. NGT described for likely ileus and bilious emesis. 2. Hospice discussion confirmed with family by medical team. 3. No surgical intervention. 4. Correction of electrolytes. Objective - Vital Signs Vital signs: Vital Signs Temp 97.6 F 11/08/18 15:00 Pulse 90 11/08/18 15:16 Resp 16 11/08/18 15:47 BP 158/84 11/08/18 15:00 Pulse Ox 96 11/08/18 15:15 Intake & Output 11/07/18 11/08/18 11/08/18 18:59 06:59 18:59 Intake Total 400 Output Total 300 1400 Balance -300 400 -1400 Weight 108.6 kg Intake: Oral 400 Output: Drainage 500 Abdomen 500 Urine 600 Stool 300 300 Other: Voiding Method Urinal Urinal Diaper Diaper Diaper Incontinent # Voids 2 1 - Labs CBC & Chem 7: 11/09/18 07:49 11/09/18 07:49 Labs: Abnormal Lab Results - Last 24 Hours (Table) 11/08/18 11/08/18 11/08/18 Range/Units 00:22 06:24 12:03 POC Glucose (mg/dL) 167 H 126 H 116 H (75-99) mg/dL Assessment and Plan (1) Cancer of sigmoid colon Current Visit: Yes Status: Acute Code(s): C18.7 - MALIGNANT NEOPLASM OF SIGMOID COLON SNOMED Code(s): 653133161 (2) Gout Current Visit: Yes Status: Acute Code(s): M10.9 - GOUT, UNSPECIFIED SNOMED Code(s): 23729023 (3) COPD (chronic obstructive pulmonary disease) Current Visit: Yes Status: Acute Code(s): J44.9 - CHRONIC OBSTRUCTIVE PULMONARY DISEASE, UNSPECIFIED SNOMED Code(s): 26739106 (4) Diabetes type 2, controlled Current Visit: Yes Status: Acute Code(s): E11.9 - TYPE 2 DIABETES MELLITUS WITHOUT COMPLICATIONS SNOMED Code(s): 93154859 (5) Colonic obstruction Current Visit: Yes Status: Acute Code(s): K56.609 - UNSP INTESTNL OBST, UNSP TO PARTIAL VERSUS COMPLETE OBST SNOMED Code(s): 83226744 (6) Morbid obesity due to excess calories Current Visit: Yes Status: Acute Code(s): E66.01 - MORBID (SEVERE) OBESITY DUE TO EXCESS CALORIES SNOMED Code(s): 152526772 (7) Obesity, Class II, BMI 35-39.9 Current Visit: Yes Status: Acute Code(s): E66.9 - OBESITY, UNSPECIFIED SNOMED Code(s): 824117201547493 (8) Colostomy status Current Visit: Yes Status: Acute Code(s): Z93.3 - COLOSTOMY STATUS SNOMED Code(s): 577349316
[2018-11-08 17:56] LABS: Glucose,Whole Blood 121 mg/dL (75-99)
--- NOTE | 2018-11-08 18:54 | XR ---
EXAMINATION TYPE: XR chest 1V portable DATE OF EXAM: 11/08/2018 COMPARISON: 11/04/2018 HISTORY: NG tube placement TECHNIQUE: Single frontal view of the chest is obtained. FINDINGS: There is central venous catheter on the right side with tip in the superior vena cava. Pedro ogastric tube deviates to the right side and the tip could be in the right lower lobe bronchus. There is no pleural effusion. There is no heart failure. IMPRESSION: This probably malposition of the NG tube with the tip in the right lower lobe bronchus.
--- NOTE | 2018-11-08 19:44 | XR ---
EXAMINATION TYPE: XR chest 1V portable DATE OF EXAM: 11/08/2018 COMPARISON: Today HISTORY: NG tube adjustment TECHNIQUE: Single frontal view of the chest is obtained. FINDINGS: NG tube appears to have its tip in the body of the stomach. There is no heart failure. The re is right central venous catheter with the tip in the superior vena cava. No pneumothorax. There is probably minimal atelectasis at the right lung base. IMPRESSION: NG tube appears in good position. New atelectasis right lung base compared to last exam.
--- NOTE | 2018-11-08 19:52 | PN ---
PROGRESS NOTE DATE OF SERVICE: 11/08/2018 This 73-year-old gentleman who was admitted with intestinal obstruction had surgery. The patient is being closely monitored at this time. The patient also had multiple other medical problems including COPD and diabetes type 2 also. The patient has been initiated on bronchodilators at this time. The chest CTA done on 11/05 showed no evidence of pulmonary embolism and bilateral lower lobe infiltrates and pleural effusions. PAST MEDICAL HISTORY: Reviewed. CURRENT MEDICATIONS: Reviewed and include: 1. DuoNeb q.i.d. and p.r.n. 2. Xanax 0.5 t.i.d. p.r.n. 3. Tums. 4. Haldol p.r.n. 5. Heparin 5 subcu q.i.d. 6. Dilaudid 1 mg q.3 p.r.n. 7. Melatonin. 8. Lopressor 50 mg b.i.d. 9. Replacement protocol. 10.Zofran. 11.Protonix. 12.Zosyn IV. PHYSICAL EXAM: Patient is alert, oriented x2. Pulse 91, blood pressure 150/84, respirations 16, temperature 97.6, pulse ox 98% on 4 L. HEENT: Conjunctivae normal. Oral mucosa moist. Neck is no jugular venous distention. No lymph node enlargement. CARDIOVASCULAR: S1, S2. RESPIRATORY: Breath sounds diminished in the bases. Bilateral scattered rhonchi and crackles. ABDOMEN: Soft, status post surgery. LEGS: No edema. NERVOUS SYSTEM: No focal deficits. LABS: At this time shows: Accu-Cheks 121, 116. ASSESSMENT: 1. Intestinal obstruction at colonic site, status post colectomy and colostomy. 2. Adenocarcinoma of the colon. 3. Chronic obstructive pulmonary disease acute exacerbation with possible pneumonia, consider aspiration gram-negative. 4. Diabetes mellitus type 2. 5. Hypertension. 6. Hyperlipidemia. 7. History of gastroesophageal reflux disease. 8. Hyponatremia. 9. Tachycardia. No evidence of pulmonary embolism in the CTA. RECOMMENDATIONS AND DISCUSSION: I recommend to continue the current management and symptomatic treatment. I recommend to continue the bronchodilators, add Symbicort. Continue with IV Zosyn. Also recommend chest x-ray. Monitor fluid and electrolytes balance closely. Guarded prognosis. Further recommendations to follow. MMODL / IJN: [id number] /
[2018-11-08] MEDS: SYMBICORT 160-4.5 MCG INHALER INHALATION SCH (20:23)
[2018-11-08 23:26] LABS: Glucose,Whole Blood 121 mg/dL (75-99)
[2018-11-09] MEDS: HYDROmorphone 0.5 MG/0.5 ML SYRINGE IVP PRN ×4 (02:54→14:33)
[2018-11-09] MEDS: INSULIN ASPART 100 UNIT/ML 1 ML 10 ML VIAL SQ SCH ×3 (06:09→17:26)
[2018-11-09 06:10] LABS: Glucose,Whole Blood 128 mg/dL (75-99)
[2018-11-09] MEDS: IPRATROPIUM-ALBUTEROL 3 ML NEB INHALATION SCH ×4 (08:04→20:29)
[2018-11-09] MEDS: SYMBICORT 160-4.5 MCG INHALER INHALATION SCH ×2 (08:04→20:29)
[2018-11-09] MEDS: METOPROLOL TARTRATE 50 MG TAB PO SCH ×2 (08:31→20:10)
[2018-11-09] MEDS: NYSTATIN 100,000 UNIT/ML SUSP 500,000 UNIT/5 ML CUP PO SCH ×4 (08:31→20:10)
[2018-11-09] MEDS: HEPARIN SODIUM,PORCINE 5,000 UNIT/ML 1 ML VIAL SQ SCH ×2 (08:31→15:27)
[2018-11-09] MEDS: PANTOPRAZOLE 40 MG/10 ML VIAL IV SCH (08:32)
[2018-11-09 08:34] LABS: Anion Gap 5 mmol/L; Anisocytosis Slight; Basophils % (A) 0 %; Blood Urea Nitrogen 16 mg/dL (9-20); Calcium 8.6 mg/dL (8.4-10.2); Carbon Dioxide 33 mmol/L (22-30); Chloride 101 mmol/L (98-107); Eosinophils # (A) 0.3 k/uL (0-0.7); Eosinophils % (A) 3 %; Glucose 140 mg/dL (74-99); HCT 34.8 % (39.0-53.0); HGB 10.9 gm/dL (13.0-17.5); Hypochromasia Marked; Lymphocytes # (A) 0.7 k/uL (1.0-4.8); Lymphocytes % (A) 7 %; MCH 30.9 pg (25.0-35.0); MCHC 31.3 g/dL (31.0-37.0); MCV 98.8 fL (80.0-100.0); Macrocytosis Slight; Mean Platelet Volume 6.8; Monocytes # (A) 0.5 k/uL (0-1.0); Monocytes % (A) 4 %; Neutrophils # (A) 9.3 k/uL (1.3-7.7); Neutrophils % (A) 85 %; Platelet Count 402 k/uL (150-450); Potassium 4.9 mmol/L (3.5-5.1); RBC 3.52 m/uL (4.30-5.90); RDW 16.1 % (11.5-15.5); Sodium 139 mmol/L (137-145)
[2018-11-09] MEDS: PIPERACILLIN-TAZOBACTAM 3.375 GM in SODIUM CHLORIDE 0.9% 100 ML IVPB SCH (08:38)
[2018-11-09] MEDS: D5-0.9% NACL WITH KCL 20 MEQ/L 1,000 ML IV SCH (10:03)
[2018-11-09 11:58] LABS: Glucose,Whole Blood 102 mg/dL (75-99)
--- NOTE | 2018-11-09 14:12 | PN ---
PROGRESS NOTE DATE OF SERVICE: 11/09/2018 This is a 73-year-old male admitted back on October 30. He came in with constipation and abdominal pain. Today is postop day #10, status post exploratory laparotomy with sigmoid colectomy and end colostomy secondary to partial colonic obstruction. The patient does have a history of invasive adenocarcinoma of the colon. He has liver and lung metastasis. He was moved out of the ICU a couple days ago. He is resting comfortably on the floor. We were able to talk to the family about code status. He is a NO CODE. We also talked to the family about hospice consultation. They agreed to that. He received an NG tube yesterday. He was leaking serous fluid from his incision site and a wound VAC was placed. Overall, his prognosis is poor. He was resting comfortably when I saw him today. His was in the room. The patient was adequately sleeping. Apparently, they must have given him something to sedate him a bit. Current vital signs are reviewed. Temperature 97.7, heart rate 87, respiratory 24, blood pressure 166/81, mean 109, 4 L saturation 97%. NG tube is noted. No respiratory distress. HEENT examination is unremarkable. Neck is supple. Full range of motion. No adenopathy or thyromegaly. Cardiovascular examination reveals regular rhythm rate. Heart rate 87. Lungs reveal a few scattered rhonchi. Breath sounds are equal bilaterally. They are diminished throughout. No wheezes. Abdomen is soft. Wound VAC in place. No bowel sounds are noted. There is a colostomy. Extremities are intact. No cyanosis, clubbing, or edema. Skin without rash. Neurologic examination is nonfocal. LABORATORY DATA: Reviewed. White count 11, hemoglobin 10.9, hematocrit 34.8, platelet count 402,000. Sodium, potassium and chloride normal. CO2 of 33, BUN and creatinine were 16 and 0.7. Microbiologic studies are thus far negative. Chest x-ray shows the placement of an NG tube. In addition, there is some atelectasis at the right lung base. The patient is doing spirometry when awake. Medications are reviewed. ASSESSMENT: 1. Postoperative day #10 status post exploratory laparotomy with sigmoid colectomy and colostomy secondary to partial colonic obstruction at the metallic stent graft site. 2. Invasive adenocarcinoma of the colon, with liver and lung metastasis, diagnosed in October of 2017, status post 4 rounds of chemotherapy. 3. Status post placement of a metallic stent in the sigmoid colon. 4. Chronic obstructive pulmonary disease, relatively stable. 5. Diabetes mellitus. 6. Benign essential hypertension. 7. Hyperlipidemia. 8. History of gastroesophageal reflux disease. 9. Mental status changes including confusion, agitation and delirium, all much improved. PLAN: The patient is resting comfortably. NG tube in place which seems to have helped a bit. Wound VAC is in place as well. His overall prognosis is poor. We did talk to the family about do not resuscitate. They changed the code status a couple days back. They also agreed to speak to hospice. Additional recommendations and suggestions are forthcoming. Chest x-ray, labs, medications and so forth are all reviewed. MMODL / IJN: [id number] /
--- NOTE | 2018-11-09 14:53 | P.PN ---
Subjective Progress Note Date: 11/09/18 CHIEF COMPLAINT: Status post sigmoid colectomy and descending colostomy HISTORY OF PRESENT ILLNESS: The patient is a 73 year old female who is status post descending colostomy creation, 10/30/18, POD 10. Since placement of NG tube, over 2 liters of bilious content decompressed from abdomen in less than 18 hours. Nurse reports increased confusion today. Patient is less talkative. He has been placed nothing by mouth. Hospice discussion started by hospitalist team yesterday. PHYSICAL EXAM: VITAL SIGNS: Reviewed GENERAL: Well-developed in no acute distress. HEENT: No sclera icterus. Extraocular movements grossly intact. Moist buccal mucosa. Head is atraumatic, normocephalic. Hears conversational speech. NGT was dark green bilious second NECK: Supple without lymphadenopathy. CHEST: Non-labored respirations and equal bilateral excursions. CARDIOVASCULAR: Regular rate with regular rhythm. ABDOMEN: Ostomy viable. No stool in ostomy bag. Wound VAC with seal intact and serosanguinous drainage. Decreased abdominal distention MUSCULOSKELETAL: No clubbing, cyanosis.. NEUROLOGIC: No focal or lateralizing signs. Cranial nerves II through XII grossly intact. PSYCH: Decreased cognition. Increased somnolence. SKIN: Well perfused. Good skin turgor. LABS: Reviewed ASSESSMENT: 1. Large bowel obstruction status post descending colostomy creation 2. Colon cancer, sigmoid colon PLAN: 1. Continue NG tube decompression 2. Keep nothing by mouth except ice chips 3. Hospice evaluation in progress 4. Recommend antibiotic management for history of Avelox ALLERGY and leukocytosis Objective - Vital Signs Vital signs: Vital Signs Temp 97.7 F 11/09/18 06:10 Pulse 88 11/09/18 12:18 Resp 24 11/09/18 06:10 BP 166/81 11/09/18 06:10 Pulse Ox 97 11/09/18 08:07 Intake & Output 11/08/18 11/09/18 11/09/18 18:59 06:59 18:59 Intake Total 0 Output Total 1500 1400 Balance -1500 -1400 Weight 108.6 kg Intake: Oral 0 Output: Gastric Drainage 1300 Drainage 600 100 Abdomen 600 100 Urine 600 Stool 300 Other: Voiding Method Diaper Diaper Diaper Incontinent Incontinent Incontinent # Voids 1 1 3 - Labs CBC & Chem 7: 11/09/18 07:49 11/09/18 07:49 Labs: Abnormal Lab Results - Last 24 Hours (Table) 11/08/18 11/08/18 11/09/18 Range/Units 17:47 23:21 06:08 WBC (3.8-10.6) k/uL RBC (4.30-5.90) m/uL Hgb (13.0-17.5) gm/dL Hct (39.0-53.0) % RDW (11.5-15.5) % Neutrophils # (1.3-7.7) k/uL Lymphocytes # (1.0-4.8) k/uL Carbon Dioxide (22-30) mmol/L Glucose (74-99) mg/dL POC Glucose (mg/dL) 121 H 121 H 128 H (75-99) mg/dL 11/09/18 11/09/18 11/09/18 Range/Units 07:49 07:49 11:52 WBC 11.0 H (3.8-10.6) k/uL RBC 3.52 L (4.30-5.90) m/uL Hgb 10.9 L (13.0-17.5) gm/dL Hct 34.8 L (39.0-53.0) % RDW 16.1 H (11.5-15.5) % Neutrophils # 9.3 H (1.3-7.7) k/uL Lymphocytes # 0.7 L (1.0-4.8) k/uL Carbon Dioxide 33 H (22-30) mmol/L Glucose 140 H (74-99) mg/dL POC Glucose (mg/dL) 102 H (75-99) mg/dL - Imaging and Cardiology Chest x-ray: report reviewed (NGT in position) Assessment and Plan (1) Cancer of sigmoid colon Current Visit: Yes Status: Acute Code(s): C18.7 - MALIGNANT NEOPLASM OF SIGMOID COLON SNOMED Code(s): 772195516 (2) Gout Current Visit: Yes Status: Acute Code(s): M10.9 - GOUT, UNSPECIFIED SNOMED Code(s): 35860629 (3) COPD (chronic obstructive pulmonary disease) Current Visit: Yes Status: Acute Code(s): J44.9 - CHRONIC OBSTRUCTIVE PULMONARY DISEASE, UNSPECIFIED SNOMED Code(s): 40790733 (4) Diabetes type 2, controlled Current Visit: Yes Status: Acute Code(s): E11.9 - TYPE 2 DIABETES MELLITUS WITHOUT COMPLICATIONS SNOMED Code(s): 21320854 (5) Colonic obstruction Current Visit: Yes Status: Acute Code(s): K56.609 - UNSP INTESTNL OBST, UNSP TO PARTIAL VERSUS COMPLETE OBST SNOMED Code(s): 71300791 (6) Morbid obesity due to excess calories Current Visit: Yes Status: Acute Code(s): E66.01 - MORBID (SEVERE) OBESITY DUE TO EXCESS CALORIES SNOMED Code(s): 728227718 (7) Obesity, Class II, BMI 35-39.9 Current Visit: Yes Status: Acute Code(s): E66.9 - OBESITY, UNSPECIFIED SNOMED Code(s): 251199962880619 (8) Colostomy status Current Visit: Yes Status: Acute Code(s): Z93.3 - COLOSTOMY STATUS SNOMED Code(s): 013793986
[2018-11-09] MEDS: metroNIDAZOLE-NS PMX 500 MG in SALINE 1 100ML.BAG IVPB SCH (15:28)
[2018-11-09 17:22] LABS: Glucose,Whole Blood 104 mg/dL (75-99)
--- NOTE | 2018-11-09 17:22 | P.CONS ---
History of Present Illness - Reason for Consult Consult date: 11/09/18 - Chief Complaint Abdominal pain - History of Present Illness 73-year-old male with a very extensive past medical history regarding his history of nearly obstructing colon carcinoma with liver metastasis first diagnosed approximately 15 months ago. At this time his original diagnosis a stent was placed through the nearly obstructive colon and he was treated medically with this chemotherapy. He was noted have evidence of significant liver metastasis and pulmonary metastasis status post multiple lines of chemotherapy. Recently was having increasing difficulties with fatigue and malaise and was on a chemotherapy holiday. He presents with evidence of an obstruction associated with the nausea emesis and increasing abdominal pain. He was taken to the operating room and attempts to resolve the obstruction. Request for antibiotic therapy is made. The patient has received narcotics for pain control and his give some further history. Fortunately he is improved since NG tube is in place with no nausea or emesis occurring. His pain is well controlled with current narcotic. With his progressive status the family has agreed to discuss plans with hospice. Review of Systems Review of systems Limited however nausea and emesis has improved with NG tube placement Abdominal pain is improved with current or chronic therapy Past Medical History Past Medical History: Asthma, Cancer, COPD, Diabetes Mellitus, GERD/Reflux, Hyperlipidemia, Hypertension Additional Past Medical History / Comment(s): ABDOMINAL PAIN AND CONSTIPATION, colon cancer History of Any Multi-Drug Resistant Organisms: None Reported Past Surgical History: No Surgical Hx Reported Additional Past Surgical History / Comment(s): colon stent Past Anesthesia/Blood Transfusion Reactions: No Reported Reaction Additional Past Anesthesia/Blood Transfusion Reaction / Comm: NO PRIOR SX HX Past Psychological History: No Psychological Hx Reported Additional Psychological History / Comment(s): Is celebrating their 55th wedding anniversary today. Retired. No experience. No travel. No animal exposures Smoking Status: Never smoker Past Alcohol Use History: None Reported Additional Past Alcohol Use History / Comment(s): QUIT SMOKING 2000,smoked approx 30 yrs 1ppd Past Drug Use History: None Reported - Past Family History Father Family Medical History: Cancer Medications and Allergies Home Medications and Allergies Comment(s): Current Medications Albuterol/Ipratropium (Duoneb 0.5 Mg-3 Mg/3 Ml Soln) 3 ml INHALATION RT-QID PRN PRN Reason: Shortness Of Breath Or Wheezing Last Admin: 11/05/18 03:15 Dose: 3 ml Albuterol/Ipratropium (Duoneb 0.5 Mg-3 Mg/3 Ml Soln) 3 ml INHALATION RT-QID [facility] Last Admin: 11/09/18 15:52 Dose: 3 ml Alprazolam (Xanax) 0.5 mg PO TID PRN PRN Reason: Anxiety Last Admin: 11/08/18 08:22 Dose: 0.5 mg Budesonide/Formoterol Fumarate (Symbicort 160-4.5 Mcg Inhaler) 2 puff INHALATION RT-BID [facility] Last Admin: 11/09/18 08:04 Dose: Not Given Calcium Carbonate/Glycine (Tums) 500 mg PO QID PRN PRN Reason: Heartburn Last Admin: 11/08/18 13:28 Dose: 500 mg Haloperidol Lactate (Haldol) 4 - 8 mg IVP Q2H PRN PRN Reason: Agitation or Acute Psychosis Heparin Sodium (Porcine) (Heparin) 5,000 unit SQ Q8HR [facility] Last Admin: 11/09/18 15:27 Dose: 5,000 unit Hydromorphone HCl (Dilaudid) 1 mg IVP Q3HR PRN PRN Reason: Moderate to Severe Pain Last Admin: 11/09/18 14:33 Dose: 1 mg Potassium Chloride/Dextrose/Sod Cl (D5%-Ns-Kcl 20 Meq/L Iv Solution) 1,000 mls @ 50 mls/hr IV .Q20H [facility] Last Admin: 11/09/18 10:03 Dose: Not Given Metronidazole 500 mg/ IV (Solution) 100 mls @ 100 mls/hr IVPB Q8HR [facility] Last Admin: 11/09/18 15:28 Dose: 100 mls/hr Ceftazidime 2 gm/ Sodium (Chloride) 100 mls @ 100 mls/hr IVPB Q8HR [facility] Insulin Aspart (Novolog) 0 unit SQ Q6HR [facility]; Protocol Last Admin: 11/09/18 12:03 Dose: Not Given Melatonin (Melatonin) 6 mg PO HS PRN PRN Reason: Insomnia Last Admin: 11/07/18 20:43 Dose: 6 mg Metoprolol Tartrate (Lopressor) 50 mg PO BID [facility] Last Admin: 11/09/18 08:31 Dose: 50 mg Miscellaneous Information (Magnesium Per Protocol) 1 each MISCELLANE DAILY PRN ; Protocol PRN Reason: Per Protocol Morphine Sulfate (Morphine Sulfate (Inj)) 4 mg IV Q4HR PRN PRN Reason: Severe Pain Last Admin: 11/08/18 21:32 Dose: 4 mg Naloxone HCl (Narcan) 0.2 mg IV Q2M PRN PRN Reason: Opioid Reversal Nystatin (Mycostatin Oral Susp) 500,000 unit PO QID [facility] Last Admin: 11/09/18 13:11 Dose: Not Given Ondansetron HCl (Zofran) 4 mg IVP Q8HR PRN PRN Reason: Nausea And Vomiting Last Admin: 11/08/18 05:18 Dose: 4 mg Pantoprazole Sodium (Protonix) 40 mg IV DAILY [facility] Last Admin: 11/09/18 08:32 Dose: 40 mg Home Medications Medication Instructions Recorded Confirmed Type Allopurinol [Zyloprim] 300 mg PO DAILY 08/16/17 10/30/18 History Simvastatin [Zocor] 20 mg PO HS 08/16/17 10/30/18 History Tiotropium 18 Mcg/Puff [Spiriva] 1 puff INHALATION RT-HS 08/16/17 10/30/18 History Zolpidem [Ambien] 5 mg PO HS 08/16/17 10/30/18 History amLODIPine [Norvasc] 5 mg PO QAM 08/16/17 10/30/18 History metFORMIN HCL [Glucophage] 500 mg PO BID 08/16/17 10/30/18 History Allergies Allergy/AdvReac Type Severity Reaction Status Date / Time moxifloxacin [From Avelox] Allergy Swelling Verified 10/30/18 14:27 Physical Exam Vitals: Vital Signs Temp Pulse Pulse Resp BP Pulse Ox 11/09/18 16:03 84 11/09/18 15:52 84 11/09/18 14:09 98.6 F 93 20 167/96 96 11/09/18 12:18 88 11/09/18 12:06 84 11/09/18 08:16 86 11/09/18 08:07 82 97 11/09/18 06:10 97.7 F 87 24 166/81 93 L 11/08/18 21:30 98.7 F 78 24 128/72 93 L Intake and Output 11/09/18 11/09/18 11/09/18 06:59 14:59 22:59 Intake Total 0 Output Total 100 Balance -100 Intake: Oral 0 Output: Drainage 100 Abdomen 100 Other: Voiding Method Diaper Diaper Incontinent Incontinent # Voids 1 3 3 Weight 108.6 kg 73-year-old male, has recently received intravenous narcotic is comfortable and sleepy HEENT: Anicteric conjunctiva are pink and moist nasal mucosa grossly intact without significant lesions, there is no thrush. Neck: The neck is supple without significant lymphadenopathy or thyromegaly. Lungs: Symmetrical air entry with basilar crackles few expiratory wheezes Heart: Regular rate and rhythm with an audible S1-S2, no S3 no S4. There is no significant murmur click or rub, PMI was nondisplaced. Abdomen: Minimally distended some tenderness is noted near the ostomy wound VAC is in place Extremities: Upper and lower reduction may show evidence of extensive muscular wasting and some edema IV access intact Neuro: Arousable answer some simple questions and falls back to sleep, spontaneously moves upper and lower extremities Results CBC & Chem 7: 11/09/18 07:49 11/09/18 07:49 Labs: Abnormal Lab Results - Last 24 Hours (Table) 11/08/18 11/08/18 11/09/18 Range/Units 17:47 23:21 06:08 WBC (3.8-10.6) k/uL RBC (4.30-5.90) m/uL Hgb (13.0-17.5) gm/dL Hct (39.0-53.0) % RDW (11.5-15.5) % Neutrophils # (1.3-7.7) k/uL Lymphocytes # (1.0-4.8) k/uL Carbon Dioxide (22-30) mmol/L Glucose (74-99) mg/dL POC Glucose (mg/dL) 121 H 121 H 128 H (75-99) mg/dL 11/09/18 11/09/18 11/09/18 Range/Units 07:49 07:49 11:52 WBC 11.0 H (3.8-10.6) k/uL RBC 3.52 L (4.30-5.90) m/uL Hgb 10.9 L (13.0-17.5) gm/dL Hct 34.8 L (39.0-53.0) % RDW 16.1 H (11.5-15.5) % Neutrophils # 9.3 H (1.3-7.7) k/uL Lymphocytes # 0.7 L (1.0-4.8) k/uL Carbon Dioxide 33 H (22-30) mmol/L Glucose 140 H (74-99) mg/dL POC Glucose (mg/dL) 102 H (75-99) mg/dL Laboratory Results WBC 11.0 k/uL (3.8-10.6) H 11/09/18 07:49 RBC 3.52 m/uL (4.30-5.90) L 11/09/18 07:49 Hgb 10.9 gm/dL (13.0-17.5) L 11/09/18 07:49 Hct 34.8 % (39.0-53.0) L 11/09/18 07:49 MCV 98.8 fL (80.0-100.0) 11/09/18 07:49 MCH 30.9 pg (25.0-35.0) 11/09/18 07:49 MCHC 31.3 g/dL (31.0-37.0) 11/09/18 07:49 RDW 16.1 % (11.5-15.5) H 11/09/18 07:49 Plt Count 402 k/uL (150-450) 11/09/18 07:49 Neutrophils % 85 % 11/09/18 07:49 Neutrophils % (Manual) 75 % 10/31/18 04:35 Band Neutrophils % 8 % 10/31/18 04:35 Lymphocytes % 7 % 11/09/18 07:49 Lymphocytes % (Manual) 13 % 10/31/18 04:35 Monocytes % 4 % 11/09/18 07:49 Monocytes % (Manual) 4 % 10/31/18 04:35 Eosinophils % 3 % 11/09/18 07:49 Basophils % 0 % 11/09/18 07:49 Neutrophils # 9.3 k/uL (1.3-7.7) H 11/09/18 07:49 Neutrophils # (Manual) 11.60 k/uL (1.3-7.7) H 10/31/18 04:35 Lymphocytes # 0.7 k/uL (1.0-4.8) L 11/09/18 07:49 Lymphocytes # (Manual) 1.82 k/uL (1.0-4.8) 10/31/18 04:35 Monocytes # 0.5 k/uL (0-1.0) 11/09/18 07:49 Monocytes # (Manual) 0.56 k/uL (0-1.0) 10/31/18 04:35 Eosinophils # 0.3 k/uL (0-0.7) 11/09/18 07:49 Basophils # 0.0 k/uL (0-0.2) 11/09/18 07:49 Nucleated RBCs 0 /100 WBC (0-0) 10/31/18 04:35 Manual Slide Review Performed 10/31/18 04:35 Hypochromasia Marked 11/09/18 07:49 Anisocytosis Slight 11/09/18 07:49 Macrocytosis Slight 11/09/18 07:49 PT 10.9 sec (9.0-12.0) 10/30/18 12:33 INR 1.0 (<1.2) 10/30/18 12:33 APTT 26.3 sec (22.0-30.0) 10/30/18 12:33 Sodium 139 mmol/L (137-145) 11/09/18 07:49 Potassium 4.9 mmol/L (3.5-5.1) 11/09/18 07:49 Chloride 101 mmol/L (98-107) 11/09/18 07:49 Carbon Dioxide 33 mmol/L (22-30) H 11/09/18 07:49 Anion Gap 5 mmol/L 11/09/18 07:49 BUN 16 mg/dL (9-20) 11/09/18 07:49 Creatinine 0.70 mg/dL (0.66-1.25) 11/09/18 07:49 Est GFR (CKD-EPI)AfAm >90 (>60 ml/min/1.73 sqM) 11/09/18 07:49 Est GFR (CKD-EPI)NonAf >90 (>60 ml/min/1.73 sqM) 11/09/18 07:49 Glucose 140 mg/dL (74-99) H 11/09/18 07:49 POC Glucose (mg/dL) 102 mg/dL (75-99) H 11/09/18 11:52 POC Glu Diver Tender ID Rosa Todd 11/09/18 11:[address] Glu mg/dL 111 10/31/18 04:35 Hemoglobin A1c 5.5 % (4.0-6.0) 10/31/18 04:35 Plasma Lactic Acid Won 2.0 mmol/L (0.7-2.0) 10/30/18 12:33 Calcium 8.6 mg/dL (8.4-10.2) 11/09/18 07:49 Phosphorus 3.6 mg/dL (2.5-4.5) 11/04/18 04:34 Magnesium 2.0 mg/dL (1.6-2.3) 11/04/18 04:34 Total Bilirubin 0.8 mg/dL (0.2-1.3) 10/31/18 04:35 AST 31 U/L (17-59) 10/31/18 04:35 ALT 25 U/L (21-72) 10/31/18 04:35 Alkaline Phosphatase 95 U/L (38-126) 10/31/18 04:35 Ammonia 20 umol/L (<30) 11/02/18 04:15 Total Protein 6.5 g/dL (6.3-8.2) 10/31/18 04:35 Albumin 3.4 g/dL (3.5-5.0) L 10/31/18 04:35 Amylase 43 U/L (30-110) 10/30/18 12:33 Lipase 41 U/L (23-300) 10/30/18 12:33 TSH 1.880 mIU/L (0.465-4.680) 11/04/18 04:34 Urine Color Yellow 10/30/18 14:35 Urine Appearance Clear (Clear) 10/30/18 14:35 Urine pH 5.5 (5.0-8.0) 10/30/18 14:35 Ur Specific [place] 1.016 (1.001-1.035) 10/30/18 14:35 Urine Protein Negative (Negative) 10/30/18 14:35 Urine Glucose (UA) Negative (Negative) 10/30/18 14:35 Urine Ketones Negative (Negative) 10/30/18 14:35 Urine Blood Negative (Negative) 10/30/18 14:35 Urine Nitrite Negative (Negative) 10/30/18 14:35 Urine Bilirubin Negative (Negative) 10/30/18 14:35 Urine Urobilinogen <2.0 mg/dL (<2.0) 10/30/18 14:35 Ur Leukocyte Esterase Negative (Negative) 10/30/18 14:35 Assessment and Plan (1) Cancer of sigmoid colon Current Visit: Yes Status: Acute Code(s): C18.7 - MALIGNANT NEOPLASM OF SIGMOID COLON SNOMED Code(s): 567959603 (2) Complete obstruction of colon Narrative/Plan: 73-year-old male with a known history of metastatic colon carcinoma presents to hospital with obstruction of the colon associated with increasing pain nausea emesis in increasing fatigue and malaise. The patient was taken to the operating room and resection and colostomy placement occurred. The patient is now postoperative and is having pain modestly well controlled. With moxifloxacin ALLERGY there was a question as to current antibiotic choice. Metronidazole is already being given will add and ceftazidime for coverage of gram negatives including pseudomonas given his past extensive medical therapy. The family will be talking to the hospice team and are considering transition to hospice care. Fortunately his pain is most well controlled the moment. Current Visit: Yes Status: Acute Code(s): K56.601 - COMPLETE INTESTINAL OBSTRUCTION, UNSPECIFIED TO CAUSE SNOMED Code(s): 610259501
[2018-11-09] MEDS: HYDROmorphone 1 MG/ML 1 ML SYRINGE IVP PRN (20:11)
--- NOTE | 2018-11-09 20:21 | PN ---
PROGRESS NOTE DATE OF SERVICE: 11/09/2018 This 73-year-old gentleman who was admitted with intestinal obstruction had colectomy and colostomy. The patient had wound infection. Wound VAC was not applied. The patient also confused. Patient also had abdomen distention yesterday. NG tube was inserted. The patient also has significant shortness with possible chronic obstructive pulmonary disease acute exacerbation. Possible pneumonia, gram-negative pneumonia is considered. The patient is on broad-spectrum IV antibiotics also. The most recent chest x-ray which was done was reviewed personally by me. Multiple consultants are following the patient closely including surgery and as well as Dr. Garcia. PAST MEDICAL HISTORY: Reviewed. REVIEW OF SYSTEMS: Could not be taken, the patient is confused. CURRENT MEDICATIONS: 1. DuoNeb q.i.d. and p.r.n. 2. Xanax 0.5 t.i.d. p.r.n. 3. Symbicort 4.5 two puffs b.i.d. 4. Tums t.i.d. 5. Haldol 4-8 daily p.r.n. 6. Heparin 5 subcu q.i.d. 7. Dilaudid. 8. NovoLog. 9. Melatonin for 6 mg. 10.Lopressor 50 mg b.i.d. 11.Flagyl. 12.Morphine sulfate. 13.Narcan. 14.Mycostatin. 15.Zofran. 16.Protonix. PHYSICAL EXAM: The patient is conscious but confused. Pulse 93, blood pressure 160/90, respiration 20, temperature 98.6, pulse ox 98% on 4 L. HEENT: Conjunctivae normal. Oral mucosa moist. NECK: No jugular venous distention. No lymph node enlargement. CARDIOVASCULAR: S1, S2. RESPIRATORY: Diminished breath sounds at the bases. A few scattered rhonchi and expiratory wheeze. ABDOMEN: Soft, nontender. LEGS: No swelling. NERVOUS SYSTEM: No focal deficits. LABS: WBC is 7.1, hemoglobin 10.9 sodium 139, potassium 4.9 glucose 102. ASSESSMENT: 1. Large bowel obstruction, colonic status post colectomy and colostomy. 2. Adenocarcinoma of the colon. 3. Chronic obstructive pulmonary disease acute exacerbation with possible pneumonia, possibly aspiration versus gram-negative. 4. Change in mental status, metabolic encephalopathy, acute on chronic. 5. Diabetes mellitus type 2. 6. Hypertension. 7. Hyperlipidemia. 8. GERD. 9. Hyponatremia. 10.Tachycardia with no evidence of pulmonary embolism in the CT. 11.Increased WBC. RECOMMENDATIONS AND DISCUSSION: This 74-year-old gentleman who presented with multiple complex medical issues, we will monitor the patient closely, continue the current management, continue symptomatic treatment. Will optimize the bronchodilator treatment. Otherwise, I would recommend continue the empiric antibiotics, monitor fluid and electrolytes balance closely and we will repeat a chest x-ray in the morning. Otherwise, we will continue to monitor. Prognosis guarded because of multiple complex medical issues. Discussed at length with the family. MMVALENTEL / IJN: [id number] /
[2018-11-10] LABS: Glucose,Whole Blood 122 mg/dL (75-99)
[2018-11-10] MEDS: INSULIN ASPART 100 UNIT/ML 1 ML 10 ML VIAL SQ SCH ×2 (00:09→07:01)
[2018-11-10] MEDS: HYDROmorphone 1 MG/ML 1 ML SYRINGE IVP PRN ×4 (00:17→11:37)
[2018-11-10] MEDS: metroNIDAZOLE-NS PMX 500 MG in SALINE 1 100ML.BAG IVPB SCH ×2 (00:18→09:39)
[2018-11-10] MEDS: HEPARIN SODIUM,PORCINE 5,000 UNIT/ML 1 ML VIAL SQ SCH ×2 (00:19→09:39)
[2018-11-10] MEDS: IPRATROPIUM-ALBUTEROL 3 ML NEB INHALATION PRN (02:50)
[2018-11-10] MEDS: D5-0.9% NACL WITH KCL 20 MEQ/L 1,000 ML IV SCH (04:15)
[2018-11-10] MEDS: MORPHINE SULFATE 4 MG/ML SYRINGE IV PRN (04:29)
[2018-11-10 06:07] VITALS: BP 170/77; RESP 18; TEMP 98.4
[2018-11-10 06:14] LABS: Glucose,Whole Blood 101 mg/dL (75-99)
[2018-11-10 08:06] LABS: Anisocytosis Slight; Basophils % (A) 0 %; Eosinophils # (A) 0.1 k/uL (0-0.7); Eosinophils % (A) 1 %; HCT 34.9 % (39.0-53.0); HGB 10.8 gm/dL (13.0-17.5); Hypochromasia Moderate; Lymphocytes # (A) 0.8 k/uL (1.0-4.8); Lymphocytes % (A) 10 %; MCH 29.8 pg (25.0-35.0); MCV 96.3 fL (80.0-100.0); Mean Platelet Volume 7.3; Monocytes # (A) 0.3 k/uL (0-1.0); Monocytes % (A) 4 %; Neutrophils # (A) 6.9 k/uL (1.3-7.7); Neutrophils % (A) 84 %; Platelet Count 395 k/uL (150-450); RBC 3.63 m/uL (4.30-5.90); RDW 16.1 % (11.5-15.5); WBC 8.2 k/uL (3.8-10.6)
[2018-11-10] MEDS: NYSTATIN 100,000 UNIT/ML SUSP 500,000 UNIT/5 ML CUP PO SCH (08:08)
[2018-11-10] MEDS: METOPROLOL TARTRATE 50 MG TAB PO SCH (08:08)
[2018-11-10] MEDS: ALPRAZolam 0.5 MG TAB PO PRN (08:08)
[2018-11-10] MEDS: IPRATROPIUM-ALBUTEROL 3 ML NEB INHALATION SCH (08:29)
[2018-11-10] MEDS: SYMBICORT 160-4.5 MCG INHALER INHALATION SCH (08:31)
[2018-11-10 08:43] VITALS: PULSE 98
[2018-11-10] MEDS: PANTOPRAZOLE 40 MG/10 ML VIAL IV SCH (09:39)
[2018-11-10 12:19] LABS: Glucose,Whole Blood 108 mg/dL (75-99)
--- NOTE | 2018-11-10 13:17 | P.PN ---
Subjective Progress Note Date: 11/10/18 Principal diagnosis: Partial colonic obstruction, status post exploratory laparotomy with sigmoid colectomy and colostomy, postop day 7 This is a 73-year-old white male patient that was admitted on 10/30/2018 with constipation, abdominal pain. Ration was found to have partial colonic obstruction at the metallic stent graft site. Patient has a previous history of invasive adenocarcinoma of the colon, with metastases to the liver and lungs diagnosed in 2017 status post 4 rounds of chemotherapy. Today patient is seen in follow-up on medical surgical floor, patient is sitting up in the bed, in no acute distress. Currently on 4 L per nasal cannula his pulse ox is 97%, he is afebrile, hemodynamically stable. Lung sounds are clear, diminished at the bases, patient is working on his incentive spirometry, needs encouragement, able to achieve 1500 on the today. Apparently yesterday patient was noted to be lethargic and tachycardic, and TSH was ordered and was within normal limits, CT angios of the chest showed no evidence of pulmonary embolism, showed bilateral lower lobe infiltrates and atelectasis, and small pleural effusions. Showed increased ascites, large calcified gallstone at the gallbladder neck. Biopsy of the surgical specimen from the colon is still pending at this time. This morning's labs were reviewed, shows WBC of 6.7, hemoglobin is 10.5, sodium is 138, potassium is 4.4, chloride is 101, CO2 was 31, BUN is 10 and creatinine 0.74. Patient is tolerating full liquid diet, ostomy is producing some small amount of liquid yellow stool. Patient was having some [id number] discomfort in the area around the stoma, but no acute distress On 11/10/2018 patient seen in follow-up on medical surgical floor. He is resting in bed, in no acute distress, currently on 4 L per nasal cannula, lung sounds are positive some bibasilar crackles, and some scattered diffuse wheezes , this is postop day 11, status post exploratory laparotomy, with sigmoid colectomy and colostomy. Patient has invasive adenocarcinoma of the colon with metastasis to the liver and lungs. Patient's family have decided to proceed with hospice enrollment. They're meeting with hospice today. Objective - Vital Signs Vital signs: Vital Signs Temp 98.4 F 11/10/18 06:05 Pulse 98 11/10/18 08:42 Resp 18 11/10/18 06:05 BP 170/77 11/10/18 06:05 Pulse Ox 94 L 11/10/18 06:05 Intake & Output 11/09/18 11/10/18 11/10/18 18:59 06:59 18:59 Output Total 200 Balance -200 Weight 108.6 kg Output: Urine 200 Other: Voiding Method Urinal Urinal Urinal Incontinent Incontinent Incontinent # Voids 1 4 - Exam GENERAL EXAM: Alert, pleasant 73-year-old white male, comfortable in no apparent distress. HEAD: Normocephalic/atraumatic. EYES: Normal reaction of pupils, equal size. Conjunctiva pink, sclera white. NOSE: Clear with pink turbinates. NG tube is in place with to low intermittent suction THROAT: No erythema or exudates. NECK: No masses, no JVD, no thyroid enlargement, no adenopathy. CHEST: No chest wall deformity. Symmetrical expansion. LUNGS: Equal air entry with no crackles, wheeze, rhonchi or dullness. CVS: Regular rate and rhythm, normal S1 and S2, no gallops, no murmurs, no rubs ABDOMEN: Soft. No hepatosplenomegaly, normal bowel sounds, no guarding or rigidity. Left abdominal stoma in place, with small amount of liquid yellow stool in the bag EXTREMITIES: No clubbing, no edema, no cyanosis, 2+ pulses and upper and lower extremities. MUSCULOSKELETAL: Muscle strength and tone normal. SPINE: No scoliosis or deformity SKIN: No rashes CENTRAL NERVOUS SYSTEM: Alert and oriented -3. No focal deficits, tone is normal in all 4 extremities. PSYCHIATRIC: Alert and oriented -3. Appropriate affect. Intact judgment and insight. - Labs CBC & Chem 7: 11/10/18 07:41 11/09/18 07:49 Labs: Abnormal Lab Results - Last 24 Hours (Table) 11/09/18 11/09/18 11/10/18 Range/Units 17:19 23:58 06:03 RBC (4.30-5.90) m/uL Hgb (13.0-17.5) gm/dL Hct (39.0-53.0) % RDW (11.5-15.5) % Lymphocytes # (1.0-4.8) k/uL POC Glucose (mg/dL) 104 H 122 H 101 H (75-99) mg/dL 11/10/18 11/10/18 Range/Units 07:41 12:17 RBC 3.63 L (4.30-5.90) m/uL Hgb 10.8 L (13.0-17.5) gm/dL Hct 34.9 L (39.0-53.0) % RDW 16.1 H (11.5-15.5) % Lymphocytes # 0.8 L (1.0-4.8) k/uL POC Glucose (mg/dL) 108 H (75-99) mg/dL Assessment and Plan Plan: Assessment: #1. Partial colonic obstruction at the metallic stent grafts site, status post exposure laparotomy with sigmoid colectomy and colostomy, postoperative day 11 #2. Invasive adenocarcinoma of the colon, liver and lung metastasis, diagnosed in August 2017, status post 4 rounds of chemotherapy and placement of a metallic stent in the sigmoid colon #3. Chronic obstructive pulmonary disease, currently stable #4. Diabetes mellitus #5. Benign essential hypertension #6. Hyperlipidemia #7. History of gastroesophageal reflux disease, mental status changes including confusion, agitation and delirium, improved Plan: Patient's family has decided on hospice enrollment and comfort care measures only at this time. No additional recommendations at this time from pulmonary perspective. We'll see on as-needed basis. I performed a history & physical examination of the patient and discussed their management with my nurse practitioner, Mita Lugo. I reviewed the nurse practitioner's note and agree with the documented findings and plan of care. Lung sounds are positive for diminished breath sounds at the bases. The findings and the impression was discussed with the patient. I attest to the documentation by the nurse practitioner. Time with Patient: Less than 30
--- NOTE | 2018-11-10 15:40 | XR ---
EXAMINATION TYPE: XR chest 1V portable DATE OF EXAM: 11/10/2018 Comparison: 11/08/2018 Clinical History: 73-year-old male CHF Findings: Heart upper limits of normal in size. Mild elongation thoracic aorta. Similar asymmetric elevation of the right hemidiaphragm. Mild diffuse interstitial prominence. Right anterior chest wall injection p ort with catheter tip at the mid SVC level. Blunted costophrenic angles could represent trace effusio ns. Impression: Heart upper limits of normal in size. Possible trace effusions. No pulmonary edema.
== END 2018-11-10 12:32 | disposition hospice, inpatient (51) | DRG 329 ==
LOC: EC 11:23 → 3NMEDONC 16:24 → 4SSUR 16:44 → 2SICU 10-31 00:29 → 4MS4W 11-04 18:08
PROVIDERS: ADMIT Surgery; ATTEND Surgery
PROC: 0DBN0ZZ Excision of Sigmoid Colon, Open Approach (ICD-10-PCS; principal; 2018-10-30 09:45)
PROC: 0D1N0Z4 Bypass Sigmoid Colon to Cutaneous, Open Approach (ICD-10-PCS; principal; 2018-10-30 09:45)
DX: C18.7 Malignant neoplasm of sigmoid colon (principal); G93.41 Metabolic encephalopathy; J69.0 Pneumonitis due to inhalation of food and vomit; C78.7 Secondary malignant neoplasm of liver and intrahepatic bile duct; C78.00 Secondary malignant neoplasm of unspecified lung; E87.1 Hypo-osmolality and hyponatremia; J98.11 Atelectasis; R18.8 Other ascites; J44.1 Chronic obstructive pulmonary disease with (acute) exacerbation; D72.829 Elevated white blood cell count, unspecified; E11.9 Type 2 diabetes mellitus without complications; E66.01 Morbid (severe) obesity due to excess calories; E78.5 Hyperlipidemia, unspecified; F41.9 Anxiety disorder, unspecified; I10 Essential (primary) hypertension; K21.9 Gastro-esophageal reflux disease without esophagitis; K80.20 Calculus of gallbladder without cholecystitis without obstruction; M10.9 Gout, unspecified; Z79.84 Long term (current) use of oral hypoglycemic drugs; Z80.9 Family history of malignant neoplasm, unspecified; Z87.891 Personal history of nicotine dependence; Z92.21 Personal history of antineoplastic chemotherapy; Z88.1 Allergy status to other antibiotic agents; Z66 Do not resuscitate; Z68.35 Body mass index [BMI] 35.0-35.9, adult
CPT/HCPCS: 36415; 71045; 71275; 74177; 80048; 80053; 81003; 82140; 82150; 83036; 83605; 83690; 83735; 84100; 84443; 85025; 85610; 85730; 88309; 94640; 94760; 96361; 96374; 96375; 96376; 99285

== ENCOUNTER 2018-11-10 12:36 | Inpatient (IN) | payer MEDICAID ==
[2018-11-10] MEDS ORDERED: LORazepam 2 MG/ML INJ IV PRN ×2 (12:50→22:18)
[2018-11-10] MEDS ORDERED: BISACODYL 10 MG SUPP RECTAL PRN (12:52)
[2018-11-10] MEDS ORDERED: ONDANSETRON 4 MG/2 ML VIAL IVP PRN (12:52)
[2018-11-10] MEDS: MORPHINE SULFATE (100 MG/2 ML) 100 MG in SODIUM CHLORIDE 0.9% 100 ML IV SCH (14:20)
--- NOTE | 2018-11-10 18:37 | PN ---
PROGRESS NOTE DATE OF SERVICE: 11/10/2018 This is a 73-year-old gentleman who was admitted with large bowel obstruction had a colectomy and colostomy. The patient being closely monitored. The patient has also had significant respiratory failure also. The family is contemplating the possibility of comfort care also at this time. PAST MEDICAL HISTORY: Reviewed. REVIEW OF SYMPTOMS: Review of systems could not be taken, the patient is confused at this time. MEDICATIONS: Current medications reviewed and include: 2. Bronchodilators. 3. Ativan. 4. Antibiotics. 5. Morphine. PHYSICAL EXAMINATION: Patient is short of breath. Confused. Blood pressure 170/77, respiration 18, temperature 98.2, pulse ox 94% on 4 L. HEENT: Conjunctivae normal. Neck is no jugular venous distention. Cardiovascular: S1, S2 muffled. Respiration: Breath sounds diminished in the bases. Bilateral scattered rhonchi and crackles. Abdomen is soft, status post surgery. Legs are no edema. No swelling. Central nervous system: No focal deficits. LABS: WBC 8.8, hemoglobin 10.8. ASSESSMENT: 1. Large bowel obstruction, colonic obstruction, status post colectomy and colostomy. 2. Adenocarcinoma of the colon. 3. Chronic obstructive pulmonary disease acute exacerbation with possible pneumonia, possible aspiration versus gram-negative. 4. Change in mental status metabolic encephalopathy, acute on chronic. 5. Diabetes mellitus type 2. 6. Hypertension. 7. Hyperlipidemia. 8. History of GERD. 9. Hyponatremia. 10.Tachycardia with no evidence of on the CT scan. 11.Increased WBC. RECOMMENDATIONS AND DISCUSSION: Recommend to continue current medications, continue with monitoring, symptomatic treatment, continue bronchodilators and antibiotics at this time. The prognosis is extremely guarded because of multiple complex medical issues. The family also would like to talk with hospice regarding further course of action. The prognosis guarded. If the family decides to go with hospice, we will continue with hospice and follow the comfort measures. Guarded prognosis. Further recommendations to follow. MMODL / IJN: [id number] / MTDD
[2018-11-10] MEDS: ATROPINE OPHTH SOLN 1% 5ML BTL SUBLINGUAL PRN (22:12)
[2018-11-10] MEDS ORDERED: ALBUTEROL NEBULIZED 2.5 MG/3 ML INHALATION ONE (22:17)
[2018-11-11] MEDS ORDERED: SCOPOLAMINE 1.5MG/72HR PATCH TRANSDERM SCH (11:00)
[2018-11-11] MEDS: MORPHINE SULFATE (100 MG/2 ML) 100 MG in SODIUM CHLORIDE 0.9% 100 ML IV SCH (13:18)
[2018-11-11] MEDS: ALBUTEROL NEBULIZED 2.5 MG/3 ML INHALATION PRN (17:14)
[2018-11-12] MEDS: MORPHINE SULFATE (100 MG/2 ML) 100 MG in SODIUM CHLORIDE 0.9% 100 ML IV SCH ×3 (01:08→18:32)
--- NOTE | 2018-11-12 07:45 | PN ---
PROGRESS NOTE DATE OF SERVICE: 11/11/2018. This 73-year-old gentleman admitted with large bowel obstruction secondary to adenocarcinoma, had a colostomy. Patient is currently on comfort measures per family's wishes. No chest pain or palpitation. The patient is sedated. The patient is on morphine drip. PHYSICAL EXAMINATION: On exam, patient is sedated. Pulse is 103, blood pressure 151/74, respiration 14 , temperature 97.4, pulse ox 97% on 4 L. HEENT: Conjunctivae normal. NECK: No jugular venous distention. CARDIOVASCULAR: S1, S2 muffled. RESPIRATORY: A few scattered rhonchi. ABDOMEN: Soft. NERVOUS SYSTEM: Patient is sedated. LABS: Labs are reviewed. ASSESSMENT: 1. Large bowel obstruction, colonic obstruction secondary to adenocarcinoma of the colon, status post colectomy and colostomy. 2. Chronic obstructive pulmonary disease acute exacerbation with possible pneumonia possibly aspiration with gram-negative on the left side. 3. Change in mental status, metabolic encephalopathy, acute on chronic. 4. Diabetes mellitus type 2. 5. Hypertension. 6. Hyperlipidemia. 7. History of gastroesophageal reflux disease. 8. Hyponatremia. 9. Tachycardia with no evidence of pulmonary embolism on the CAT scan. 10.Increased WBC. 11.NO CODE, NO CPR, . Comfort measures in hospice. RECOMMENDATIONS AND DISCUSSION: This 73-year-old gentleman who presented with multiple medical issues, at this time we will monitor the patient closely. Continue the current medications. Continued symptomatic treatment. Otherwise continue with the hospice measures. Prognosis extremely guarded. Discussed with the family and further recommendations to follow. MMVALENTEL / IJN: [id number] / TRACY
--- NOTE | 2018-11-12 17:42 | PN ---
PROGRESS NOTE DATE OF SERVICE: 11/12/2018 This 73 -year-old gentleman admitted with bowel obstructions is on comfort measures at this time. The biopsy showed adenocarcinoma of the colon. The patient is sedated with morphine drip. EXAM: Patient is sedated. Pulse 114, blood pressure 140/67, respiration 20, temperature 98.2, pulse ox 94% on 3 L. HEENT is conjunctivae normal. NECK is no jugular venous distention. CARDIOVASCULAR SYSTEMS: S1, S2 muffled. RESPIRATIONS: Breath sounds diminished in the bases. A few scattered rhonchi and crackles. ABDOMEN: Soft. Nervous system: Sedated. LABS: Not available. ASSESSMENT: 1. Large bowel obstruction, colonic obstruction secondary to adenocarcinoma of the colon, status post colectomy and colostomy. 2. Chronic obstructive pulmonary disease acute exacerbation with possible pneumonia possibly aspiration with gram-negative on the left side. 3. Change in mental status, metabolic encephalopathy, acute on chronic. 4. Diabetes mellitus type 2. 5. Hypertension. 6. Hyperlipidemia. 7. History of gastroesophageal reflux disease. 8. Hyponatremia. 9. Tachycardia with no evidence of pulmonary embolism on the CT scan. 10.Increased WBC. 11.NO CODE, NO CPR, NO VENT. 12.Comfort measures. 13.Hospice. RECOMMENDATIONS AND DISCUSSION: Recommend to continue current medications, management. Symptomatic treatment. Otherwise, at this time, we will monitor the patient closely. Continue with comfort measures. Prognosis guarded. Discussed with the family. Further recommendations to follow. MMODL / IJN: [id number] /
[2018-11-13 08:07] VITALS: BP 131/69; TEMP 100.1
[2018-11-13] MEDS: MORPHINE SULFATE (100 MG/2 ML) 100 MG in SODIUM CHLORIDE 0.9% 100 ML IV SCH (11:48)
[2018-11-13] MEDS: ATROPINE OPHTH SOLN 1% 5ML BTL SUBLINGUAL PRN (14:28)
[2018-11-13] MEDS: ALBUTEROL NEBULIZED 2.5 MG/3 ML INHALATION PRN (15:49)
[2018-11-13 16:04] VITALS: PULSE 90
[2018-11-13 16:31] VITALS: RESP 8
--- NOTE | 2018-11-14 06:32 | DS ---
DISCHARGE SUMMARY SUMMARY The preliminary cause of is adenocarcinoma of the colon with large bowel obstruction, colonic obstruction, status post colectomy and colostomy. OTHER DIAGNOSES: 1. Chronic obstructive pulmonary disease acute exacerbation with possible pneumonia possibly aspiration with gram-negative on the left side. 2. Change in mental status, metabolic encephalopathy, acute on chronic. 3. Diabetes mellitus type 2. 4. Hypertension. 5. Hyperlipidemia. 6. History of gastroesophageal reflux disease. 7. Hyponatremia. 8. Tachycardia with no evidence of pulmonary embolism on the CAT scan. 9. Increased WBC. 10.NO CODE, NO CPR, NO VENT. 11.Comfort measures and hospice. HISTORY OF PRESENT ILLNESS: This 73-year-old gentleman with a past medical history of multiple medical problems initially was admitted with colonic obstruction and the patient underwent surgery. The biopsy was reported as adenocarcinoma of the colon. After surgery, the patient initially made some improvement. Subsequently patient had multiple complications as listed above. The patient had very poor recovery and the patient's condition continues to be deteriorating and case discussed with family and the family would like to go with hospice and comfort measures and subsequently comfort measures were proceeded and the patient because of the multiple complex medical issues as mentioned earlier. The prognosis remained guarded throughout the hospital stay. Please refer to the multiple notes including surgical notes and operative notes for further information. MMODL / IJN: [id number] /
== END 2018-11-13 22:43 | disposition expired | DRG 951 ==
LOC: 4MS4W 12:43
PROVIDERS: ADMIT Hospitalist; ATTEND Hospitalist
DX: Z51.5 Encounter for palliative care (principal); G93.41 Metabolic encephalopathy; J96.90 Respiratory failure, unspecified, unspecified whether with hypoxia or hypercapnia; J69.0 Pneumonitis due to inhalation of food and vomit; J15.6 Pneumonia due to other Gram-negative bacteria; C18.9 Malignant neoplasm of colon, unspecified; E87.1 Hypo-osmolality and hyponatremia; J44.1 Chronic obstructive pulmonary disease with (acute) exacerbation; Z66 Do not resuscitate; E11.9 Type 2 diabetes mellitus without complications; E78.5 Hyperlipidemia, unspecified; I10 Essential (primary) hypertension; K21.9 Gastro-esophageal reflux disease without esophagitis; R00.0 Tachycardia, unspecified; Z90.49 Acquired absence of other specified parts of digestive tract; Z93.3 Colostomy status; Z87.891 Personal history of nicotine dependence; Z80.9 Family history of malignant neoplasm, unspecified
CPT/HCPCS: 94640